=== PATIENT | male | born 1970 | race Hispanic/Latino ===

== ENCOUNTER 2022-07-28 15:23 | Emergency (ER) | payer SELFPAY ==
--- OUTSIDE RECORDS SUMMARY | 2022-07-28 15:35 | XMS REPORT | Continuity of Care Document ---
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 mouth 2 times a day. acetaminoph 2021- No 1{tbl} Q6H Take 1 Methodi en-codeine 4-19 04-[address] (TYLENOL 00:00: 04:59 mouth [facility] WITH 00 :00 every 6 l CODEINE #3) (six) 300-30 mg hours as per tablet needed for moderate pain for up to 5 days .acute pain. acetaminoph 2021- No 1{tbl} Q6H Take 1 Methodi en-codeine 4-19 04-[address] (TYLENOL 00:00: 04:59 mouth [facility]ospita WITH 00 :00 every 6 l CODEINE #3) (six) 300-30 mg hours as per tablet needed for moderate pain for up to 5 days .acute pain. pantoprazol 2021- No 40mg QD Take 1 Met hodi e 3-14 04-14 tablet (40 st (PROTONIX) 00:00: 04:59 mg total) H ospita 40 MG EC 00 :00 by mouth l tablet daily for 30 days. pantoprazol 2021- No 40mg QD Take 1 Met hodi e 08-25- tablet (40 st (PROTONIX) 00:00: 04:59 mg total) H ospita 40 MG EC 00 :00 by mouth l tablet daily for 30 days. tacrolimus 2021- No 1mg Q.5D Take 1 mg M ethodi (PROGRAF) 1 08-24 by mouth 2 s t MG capsule 13:44: 00:00 (two) Hospi ta 50 :00 times a l day. mycophenola 2021- No 1000mg Q.5D Take 1,000 Methodi te 3-13 03-[address] (CELLCEPT) 13:44: 00:00 mouth 2 Hos kar 500 mg 50 :00 (two) l tablet times a day. tacrolimus 2021- No 1mg Q.5D Take 1 mg M ethodi (PROGRAF) 1 08-24 by mouth 2 s t MG capsule 13:44: 00:00 (two) Hospi ta 50 :00 times a l day. mycophenola 2021- No 1000mg Q.5D Take 1,000 Methodi te 3-13 03-[address] (CELLCEPT) 13:44: 00:00 mouth 2 Hos kar 500 mg 50 :00 (two) l tablet times a day. mycophenola 2021- No [id number] 1000mg Q.5D Take 2 Methodi te 3-13 04-[address] (CELLCEPT) 00:00: 04:59 (1,000 mg H ospita 500 mg 00 :00 total) by l tablet mouth 2 (two) times a day for 30 days. tacrolimus 2021- No [id number] 1mg Q.5D Take 1 Methodi (PROGRAF) 1 08-24- capsule (1 s t MG capsule 00:00: 04:59 mg total) H ospita 00 :00 by mouth 2 l (two) times a day for 30 days. mycophenola 2021-2021- No [id number] 1000mg Q.5D Take 2 Methodi te 3-13 04-[address] (CELLCEPT) 00:00: 04:59 (1,000 mg H ospita 500 mg 00 :00 total) by l tablet mouth 2 (two) times a day for 30 days. tacrolimus No [id number] 1mg Q.5D Take 1 Methodi (PROGRAF) 1 08-24 capsule (1 s t MG capsule 00:00: 04:59 mg total) H ospita 00 :00 by mouth 2 l (two) times a day for 30 [place] [id number] 5mg Q6H Take 1 Meth shalom (ROXICODONE 08-24 tablet (5 st ) 5 MG 00:00: 04:59 mg total) Hospi ta immediate 00 :00 by mouth l release every 6 tablet (six) hours as needed for severe pain for up to 7 days .acute pain. Max Daily Amount: 20 [place] [id number] 5mg Q6H Take 1 Meth shalom (ROXICODONE 08-24 tablet (5 st ) 5 MG 00:00: 04:59 mg total) Hospi ta immediate 00 :00 by mouth l release every 6 tablet (six) hours as needed for severe pain for up to 7 days .acute pain. Max Daily Amount: 20 mg Vital Signs Vital Name Observation Time Observation Value Comments Source Systolic blood 2022-05-01 17:52:00 138 mm[Hg] [facility] Diastolic blood 2022-05-01 17:52:00 94 mm[facility]Hg[facility] 2022-05-01 17:52:00 68 /min [facility] Body temperature 2022-05-01 17:52:00 36.67 Susan [facility] Respiratory rate 2022-05-01 17:52:00 18 /min [facility] Oxygen saturation in 2022-05-01 17:52:00 97 /min [facility] Arterial blood by [facility] Pulse oximetry Branch Body height 2022-04-30 13:40:00 160 cm [facility] Body weight 2022-04-30 13:40:00 96.752 kg [facility] BMI 2022-04-30 13:40:00 37.78 kg/m2 [facility] HEIGHT 2021-08-09 17:31:00 162.6 cm WEIGHT 2021-08-09 17:31:00 104.327 kg HEIGHT 2021-08-09 17:31:00 162.6 cm WEIGHT 2021-08-09 17:31:00 104.327 kg HEIGHT 2021-08-09 17:31:00 162.6 cm WEIGHT 2021-08-09 17:31:00 104.327 kg Systolic blood 2022-07-28 11:52:52 148 mm[Hg] [facility] pressure Diastolic blood 2022-07-28 11:52:52 93 mm[Hg] [facility] pressure Heart rate 2022-07-28 11:52:52 59 /min [facility] Body temperature 2022-07-28 11:52:52 35.94 Susan [facility] Oxygen saturation in 2022-07-28 11:52:52 100 /[facility] Arterial blood by Pulse oximetry Respiratory rate 2022-07-27 21:07:19 15 /min [facility] Body weight 2022-07-27 11:07:24 85.078 kg [facility] BMI 2022-07-27 11:07:24 33.23 kg/m2 [facility] Body height 2022-07-05 15:26:00 160 cm [facility] Systolic blood 2022-04-28 11:00:00 131 mm[Hg] [facility] pressure Diastolic blood 2022-04-28 11:00:00 80 mm[Hg] [facility] pressure Heart rate 2022-04-28 11:00:00 80 /min [facility] Body temperature 2022-04-28 11:00:00 36.67 [facility] Respiratory rate 2022-04-28 11:00:00 18 /min [facility] Oxygen saturation in 2022-04-28 11:00:00 98 /min [facility] Arterial blood by Pulse oximetry Body height 2022-04-27 17:29:00 160 cm [facility] Body weight 2022-04-27 17:29:00 96.208 kg [facility] BMI 2022-04-27 17:29:00 37.57 kg/m2 [facility] Systolic blood 2021-08-10 03:41:00 108 mm[Hg] [facility] Diastolic blood 2021-08-10 03:41:00 67 mm[Hg] [facility] Heart rate 2021-08-10 03:41:00 58 /min [facility] Respiratory rate 2021-08-10 03:41:00 20 /min [facility] Oxygen saturation in 2021-08-10 03:41:00 100 /min [facility] Arterial blood by [facility] Pulse oximetry Body height 2021-08-09 17:31:00 162.6 cm [facility] Body weight 2021-08-09 17:31:00 104.327 kg [facility] BMI 2021-08-09 17:31:00 39.48 kg/m2 [facility] Procedures Procedure Date / Time Performing Source Performed Clinician BASIC METABOLIC PANEL 2022-07-27 Ailyn Anne 10:19:00 [facility] ESTIMATED GFR 2022-07-27 Ailyn Anne 10:19:00 [facility] [id number] TACROLIMUS LEVEL, TROUGH 2022-07-27 Bo Gannon ethodi 10:16:00 [facility] [place] [address] TACROLIMUS LEVEL, TROUGH 2022-07-26 Bo Gannonodi 11:12:00 [facility] COMPREHENSIVE METABOLIC PANEL 2022-07-26 Ailyn Anneodist 11:05:00 Hospital CBC HEMOGRAM 2022-07-26 Ailyn Anne 11:05:00 Hospital ESTIMATED GFR 2022-07-26 Ailyn Anne 11:05:00 [facility] FK506 TACROLIMUS LEVEL, TROUGH 2022-07-25 Bo Gannonodi 11:19:00 [facility] COMPREHENSIVE METABOLIC PANEL 2022-07-25 Ailyn Anne thodist 11:02:00 [facility] CBC HEMOGRAM 2022-07-25 Ailyn Anne Jain 11:02:00 Hospital ESTIMATED GFR 2022-07-25 Ailyn Anne 11:02:00 [facility] COMPREHENSIVE METABOLIC PANEL 2022-07-24 Paulina Mendez 16:21:00 [facility] ESTIMATED GFR 2022-07-24 Paulina Mendez 16:21:00 [facility] VENOUS BLOOD GAS 2022-07-24 Ministerio Mehta Jain 16:20:[address] [facility] ESTIMATED GFR 2022-07-24 Eris avendanolakshmi Bartholomew 14:08:00 [facility] CBC HEMOGRAM 2022-07-24 Bo Gannon 11:11:00 [facility] [place] FK[address] TACROLIMUS LEVEL, TROUGH 2022-07-24 Bo Gannon 11:10:00 [facility] COMPREHENSIVE METABOLIC PANEL 2022-07-24 Bo Gannonst 11:10:00 [facility] ESTIMATED GFR 2022-07-24 Bo Gannon 11:10:00 [facility] URINE CULTURE 2022-07-23 Paulina Mendez 22:04:00 [facility] URINALYSIS SCREEN AND MICROSCOPY, 2022-07-23 Maria Eugenia Mendez WITH REFLEX TO CULTURE 21:56:00 [facility] ESTIMATED GFR 2022-07-23 Paulina Mendez 15:23:00 [facility] HEPATIC FUNCTION PANEL 2022-07-23 Paulina Mendez 10:58:00 [facility] [id number] TACROLIMUS LEVEL, TROUGH 2022-07-23 Bo Gannon 10:58:00 [facility] [place] CBC WITH PLATELET AND DIFFERENTIAL 2022-07-23 Nemesio Anne Jain 10:58:00 [facility] BASIC METABOLIC PANEL 2022-07-23 Bo Gannon 10:58:00 [facility] ESTIMATED GFR 2022-07-23 Bo Gannon 10:58:00 [facility] HEPATIC FUNCTION PANEL 2022-07-22 Paulina Mendez 11:06:00 [facility] FK506 TACROLIMUS LEVEL, TROUGH 2022-07-22 Bo Gannon ethodist 11:06:00 [facility] CBC WITH PLATELET AND DIFFERENTIAL 2022-07-22 Jorge Aleman Jain 11:06:00 [facility] BASIC METABOLIC PANEL 2022-07-22 Sari Aleman Jain 11:06:00 Hospital ESTIMATED GFR 2022-07-22 Sari Aleman Jain 11:06:00 Hospital LACTIC ACID LEVEL 2022-07-21 Paulina Mendez 17:08:00 [facility] HEPATIC FUNCTION PANEL 2022-07-21 Paulina Mendez 11:02:00 [facility] [id number] TACROLIMUS LEVEL, TROUGH 2022-07-21 Bo Gannon ethodist 11:02:00 [facility] CBC WITH PLATELET AND DIFFERENTIAL 2022-07-21 Jorge Aleman Jain 11:02:00 Hospital BASIC METABOLIC PANEL 2022-07-21 Sari Aleman Jain 11:02:00 Hospital ESTIMATED GFR 2022-07-21 Sari Aleman Jain 11:02:00 Hospital XR ABDOMEN 1 VW PORTABLE 2022-07-[address] 02:07:32 [facility] LACTIC ACID LEVEL 2022-07-20 Ministerio Mehta Jain 19:19:00 [facility] ARTERIAL BLOOD GAS 2022-07-20 TysonMinisterio Jain 18:43:00 C [facility] FK506 TACROLIMUS LEVEL, TROUGH 2022-07-20 Milagros Harringtonodist 10:53:00 Hospital VENOUS BLOOD GAS 2022-07-20 Rogelio Jain 10:53:00 [facility] BASIC METABOLIC PANEL 2022-07-20 Sari Aleman Jain 10:50:00 Hospital MAGNESIUM LEVEL 2022-07-20 Sari Aleman Jain 10:50:00 Hospital PHOSPHORUS LEVEL 2022-07-20 Sari Aleman Jain 10:50:00 Hospital CBC WITH PLATELET AND DIFFERENTIAL 2022-07-20 Jorge Aleman Jain 10:50:00 Hospital ESTIMATED GFR 2022-07-20 Sari Aleman Jain 10:50:00 Hospital HEPATIC FUNCTION PANEL 2022-07-20 Sari Aleman Jain 10:50:00 Hospital SODIUM LEVEL, URINE, RANDOM 2022-07-20 Eva Mercado odlevar 01:14:00 [facility] OSMOLALITY, URINE 2022-07-20 Rogelio Jain 01:14:00 [facility] FK506 TACROLIMUS LEVEL, TROUGH 2022-07-19 Milagros Harrington ethodist 11:08:00 Hospital CBC WITH PLATELET AND DIFFERENTIAL 2022-07-19 Jorge Aleman 11:08:00 Hospital MAGNESIUM LEVEL 2022-07-19 Sari Aleman 11:08:00 Hospital PHOSPHORUS LEVEL 2022-07-19 Sari Aleman Jain 11:08:00 Hospital COMPREHENSIVE METABOLIC PANEL 2022-07-19 Sari Aleman Me thodist 11:08:00 Hospital ESTIMATED GFR 2022-07-19 Sari Aleman Jain 11:08:00 Hospital FK506 TACROLIMUS LEVEL, TROUGH 2022-07-18 Milagros Harrington ethodist 10:49:00 Hospital CBC WITH PLATELET AND DIFFERENTIAL 2022-07-18 Jorge Alemanist 10:49:00 Hospital COMPREHENSIVE METABOLIC PANEL 2022-07-18 Sari Aleman thodist 10:49:00 Hospital ESTIMATED GFR 2022-07-18 Sari Aleman Jain 10:49:00 Hospital HEPATIC FUNCTION PANEL 2022-07-17 Sari Aleman Jain 10:57:00 Hospital FK506 TACROLIMUS LEVEL, TROUGH 2022-07-17 Milagros Harrington ethodist 10:57:00 Hospital CBC WITH PLATELET AND DIFFERENTIAL 2022-07-17 Jorge Aleman Jain 10:57:00 Hospital BASIC METABOLIC PANEL 2022-07-17 Sari Aleman Jain 10:57:00 Hospital ESTIMATED GFR 2022-07-17 Sari Aleman Jain 10:57:00 Hospital HEPATIC FUNCTION PANEL 2022-07-16 Sari Aleman Jain 10:53:00 Hospital CBC WITH PLATELET AND DIFFERENTIAL 2022-07-16 Jorge Aleman Jain 10:53:00 Hospital FK506 TACROLIMUS LEVEL, TROUGH 2022-07-16 Milagros Harrington ethodist 10:53:00 Hospital XR CHEST 1 VW PORTABLE 2022-07-15 Paulina Mendez 21:51:13 [facility] HEPATIC FUNCTION PANEL 2022-07-15 Sari Aleman Jain 12:21:00 Hospital CBC WITH PLATELET AND DIFFERENTIAL 2022-07-15 Jorge Aleman Jain 12:21:00 Hospital FK506 TACROLIMUS LEVEL, TROUGH 2022-07-15 Milagros Harrington ethodist 12:21:00 Hospital BASIC METABOLIC PANEL 2022-07-15 IgnaciagayathriMilagrosist 12:21:00 Hospital ESTIMATED GFR 2022-07-15 IgnaciagayathriMilagros 12:21:00 Hospital HEPATIC FUNCTION PANEL 2022-07-14 Sari Aleman 11:22:00 Hospital CBC WITH PLATELET AND DIFFERENTIAL 2022-07-14 Jorge Aleman 11:22:00 Hospital BASIC METABOLIC PANEL 2022-07-14 Sari Aleman 11:22:00 Hospital FK506 TACROLIMUS LEVEL, TROUGH 2022-07-14 Milagros Harrington ethodist 11:22:00 Hospital ESTIMATED GFR 2022-07-14 Sari Aleman 11:22:00 Hospital URINALYSIS SCREEN AND MICROSCOPY, 2022-07-13 Maria Eugenia Mendez WITH REFLEX TO CULTURE 22:03:00 [facility] URINE CULTURE 2022-07-13 Paulina Mendez 22:03:00 [facility] BLOOD CULTURE, AEROBIC & ANAEROBIC 2022-07-13 Adama Mendez 20:50:00 [facility] FK506 TACROLIMUS LEVEL, TROUGH 2022-07-13 Ailyn Anne ethodist 11:24:00 Hospital FK506 TACROLIMUS LEVEL, TROUGH 2022-07-12 Ailyn Anne ethodist 11:43:00 [facility] COMPREHENSIVE METABOLIC PANEL 2022-07-12 Ailyn Anne thodist 11:43:00 Hospital CBC WITH PLATELET AND DIFFERENTIAL 2022-07-12 Nemesio Anne Jain 11:43:00 Hospital ESTIMATED GFR 2022-07-12 Ailyn Anne Jain 11:43:00 Hospital FK506 TACROLIMUS LEVEL, TROUGH 2022-07-11 Ailyn Anne ethodist 11:16:00 Hospital COMPREHENSIVE METABOLIC PANEL 2022-07-11 Ailyn Anne thodist 11:16:00 Hospital CBC WITH PLATELET AND DIFFERENTIAL 2022-07-11 Nemesio Anne ti Jain 11:16:00 Hospital ESTIMATED GFR 2022-07-11 Ailyn Anne Jain 11:16:00 Hospital FK506 TACROLIMUS LEVEL, TROUGH 2022-07-10 Ailyn Anne ethodist 10:57:00 Hospital CBC WITH PLATELET AND DIFFERENTIAL 2022-07-10, Adama Crespoist 10:57:00 [facility] COMPREHENSIVE METABOLIC PANEL 2022-07-10, Paulina Cervantes thodist 10:57:00 [facility] ESTIMATED GFR 2022-07-10, Paulina Crespoist 10:57:00 [facility] FK506 TACROLIMUS LEVEL, TROUGH 2022-07-09 Ailyn Anne ethodist 11:36:00 Hospital CBC WITH PLATELET AND DIFFERENTIAL 2022-07-09, Adama abad Jain 11:36:00 [facility] COMPREHENSIVE METABOLIC PANEL 2022-07-09, Paulina eCrvantes thodist 11:36:00 [facility] ESTIMATED GFR 2022-07-09, Paulina Crespoist 11:36:00 [facility] FK506 TACROLIMUS LEVEL, TROUGH 2022-07-08 Ailyn Anne ethodist 11:32:00 Hospital CBC WITH PLATELET AND DIFFERENTIAL 2022-07-08, Adama Crespoist 11:32:00 [facility] COMPREHENSIVE METABOLIC PANEL 2022-07-08, Paulina Cervantes thodist 11:32:00 [facility] PROTHROMBIN TIME WITH INR 2022-07-08, Paulina Crespo ist 11:32:00 [facility] ESTIMATED GFR 2022-07-08, Paulina Crespoist 11:32:00 [facility] AMMONIA LEVEL 2022-07-07 Linsey Gomezist 11:19:00 [facility] FK506 TACROLIMUS LEVEL, TROUGH 2022-07-07 Ailyn Anne ethodist 11:19:00 Hospital AMMONIA LEVEL 2022-07-06 Ailyn Anne Jain 17:45:00 Hospital AMMONIA LEVEL 2022-07-06 Ailyn Anne 15:44:00 Hospital MAGNESIUM LEVEL 2022-07-06 Linsey Gomez Jain 11:51:00 [facility] CBC WITH PLATELET AND DIFFERENTIAL 2022-07-06 JasonLinsey Jain 11:51:00 [facility] COMPREHENSIVE METABOLIC PANEL 2022-07-06 Jason, Aishar Me thodist 11:51:00 [facility] BILIRUBIN DIRECT 2022-07-06 Linsey Gomez Jain 11:51:00 [facility] FK506 TACROLIMUS LEVEL, RANDOM 2022-07-06 Linsey Gomez ethodist 11:51:00 [facility] ESTIMATED GFR 2022-07-06 Linsey Gomez 11:51:00 [facility] ALCOHOL LEVEL, BLOOD 2022-07-06 Linsey Gomez 05:30:00 [facility] POTASSIUM LEVEL 2022-07-06 Linsey Gomez Jain 05:30:00 [facility] MAGNESIUM LEVEL 2022-07-06 JasonLinsey Jain 05:30:00 [facility] LACTIC ACID LEVEL 2022-07-06 JasonLinsey Jain 05:30:00 [facility] BILIRUBIN DIRECT 2022-07-06 JasonLinsey ocok Jain 05:30:00 [facility] BASIC METABOLIC PANEL 2022-07-06 Linsey Gomez 05:30:00 [facility] ESTIMATED GFR 2022-07-06 Linsey Gomez 05:30:[address] [facility] CT ABDOMEN PELVIS W CONTRAST 2022-07-05 Sybil Rivera Met hodist 19:07:45 [facility] XR CHEST 1 VW PORTABLE 2022-07-05 Sybil Rivera Jain 16:34:20 [facility] URINALYSIS SCREEN AND MICROSCOPY, 2022-07-05 Sybil Rivera Jain WITH REFLEX TO CULTURE 16:22:00 [facility] URINE CULTURE 2022-07-05 Sybil Rivera Jain 16:21:00 [facility] ECG ED PRELIMINARY INTERPRETATION 2022-07-05 Sybil Rivera Jain 16:10:14 [facility] MA CRITICAL CARE ILL/INJURED 2022-07-05 Sybil Rivera Met hodist PATIENT INIT 30-74 MIN 16:10:14 [facility] CBC WITH PLATELET AND DIFFERENTIAL 2022-07-05 Sybil Rivera Jain 16:03:00 [facility] COMPREHENSIVE METABOLIC PANEL 2022-07-05 Sybil Rivera Me thodist 16:03:00 [facility] LIPASE LEVEL 2022-07-05 Sybil Rivera Jain 16:03:00 [facility] TYPE AND SCREEN 2022-07-05 Sybil Rivera Jain 16:03:00 [facility] PROTHROMBIN TIME WITH INR 2022-07-05 Sybil Rivera Method ist 16:03:00 [facility] PARTIAL THROMBOPLASTIN TIME (PTT) 2022-07-05 Sybil Rivera Jain 16:03:00 [facility] ESTIMATED GFR 2022-07-05 Sybil Riveraist 16:03:00 [facility] TROPONIN T 2022-07-05 Sybil Riveraist 16:03:00 [facility] RESPIRATORY PATHOGEN PANEL WITH 2022-07-05 Sybil Rivera COVID-19 RT-PCR 16:03:00 [facility] ECG 12-LEAD 2022-07-05 Sybil Riveraist 15:31:00 [facility] [id number] TACROLIMUS LEVEL, RANDOM 2022-06-26 Jaime Marsodist 11:00:00 [facility] BASIC METABOLIC PANEL 2022-06-26 Jaime Mars 11:00:00 [facility] CBC WITH PLATELET AND DIFFERENTIAL 2022-06-26 Chetan Marsist 11:00:00 [facility] HEPATIC FUNCTION PANEL 2022-06-26 Jaime Mars 11:00:00 [facility] PROTHROMBIN TIME WITH INR 2022-06-26 Pedro Spears 11:00:00 Hospital ESTIMATED GFR 2022-06-26 Jaime Mars 11:00:00 [facility] FK506 TACROLIMUS LEVEL, RANDOM 2022-06-25 Jaime Mars ethodist 10:30:00 [facility] BASIC METABOLIC PANEL 2022-06-25 Jaime Mrasist 10:30:00 [facility] CBC WITH PLATELET AND DIFFERENTIAL 2022-06-25 Chetan Marsist 10:30:00 [facility] HEPATIC FUNCTION PANEL 2022-06-25 Jaime Mars 10:30:00 [facility] PROTHROMBIN TIME WITH INR 2022-06-25 Pedro Spears 10:30:00 Hospital ESTIMATED GFR 2022-06-25 Jaime Mars Jain 10:30:00 [facility] CBC WITH PLATELET AND DIFFERENTIAL 2022-06-24 Chetan Mars Jain 10:51:00 [facility] FK506 TACROLIMUS LEVEL, RANDOM 2022-06-24 Jaime Mars ethodist 10:51:00 [facility] COMPREHENSIVE METABOLIC PANEL 2022-06-24 Jaime Mars Ny thodist 10:51:00 [facility] MAGNESIUM LEVEL 2022-06-24 Jaime Mars Jain 10:51:00 [facility] PHOSPHORUS LEVEL 2022-06-24 Jaime Mars Jain 10:51:00 [facility] PROTHROMBIN TIME WITH INR 2022-06-24 Jaime Mars Method ist 10:51:00 [facility] ESTIMATED GFR 2022-06-24 Jaime Mars Jain 10:51:00 [facility] ESTIMATED GFR 2022-06-24 Jaime Mars Jain 10:45:00 [facility] CBC WITH PLATELET AND DIFFERENTIAL 2022-06-23 Chetan Mars Jain 10:29:00 [facility] FK506 TACROLIMUS LEVEL, RANDOM 2022-06-23 Esthela Terry ethodist 10:29:00 [facility] COMPREHENSIVE METABOLIC PANEL 2022-06-23 Jaime Mars Ny thodist 10:29:00 [facility] MAGNESIUM LEVEL 2022-06-23 Jaime Mars Jain 10:29:00 [facility] PHOSPHORUS LEVEL 2022-06-23 Jaime Mars Jain 10:29:00 [facility] PROTHROMBIN TIME WITH INR 2022-06-23 Jaime Mars Method ist 10:29:00 [facility] ESTIMATED GFR 2022-06-23 Jaime Mars Jain 10:29:00 [facility] ESTIMATED GFR 2022-06-23 Jaime Mars Jain 10:22:00 [facility] BASIC METABOLIC PANEL 2022-06-22 Jaime Mars Jain 12:49:00 [facility] CBC WITH PLATELET AND DIFFERENTIAL 2022-06-22 Chetan Mars Jain 12:49:00 [facility] FK506 TACROLIMUS LEVEL, RANDOM 2022-06-22 Esthela Terry 12:49:00 [facility] ESTIMATED GFR 2022-06-22 Jaime Mars Jain 12:49:00 [facility] BASIC METABOLIC PANEL 2022-06-21 Jaime Mars Jain 11:07:00 [facility] CBC WITH PLATELET AND DIFFERENTIAL 2022-06-21 Chetan Mars Jain 11:07:00 [facility] FK506 TACROLIMUS LEVEL, RANDOM 2022-06-21 Esthela Terry 11:07:00 [facility] ESTIMATED GFR 2022-06-21 Jaime Mars Jain 11:07:00 [facility] HEPATIC FUNCTION PANEL 2022-06-21 Jaime Mars Jain 11:07:00 [facility] CBC WITH PLATELET AND DIFFERENTIAL 2022-06-20 Chetan Mars Jain 12:06:00 [facility] FK506 TACROLIMUS LEVEL, RANDOM 2022-06-20 Esthela Terry 12:06:00 [facility] COMPREHENSIVE METABOLIC PANEL 2022-06-20 Jaime Mars 12:06:00 [facility] PROTHROMBIN TIME WITH INR 2022-06-20 Jaime Mars Method ist 12:06:00 [facility] ESTIMATED GFR 2022-06-20 Jaime Mars Jain 12:06:00 [facility] ESTIMATED GFR 2022-06-20 Jaime Mars Jain 09:45:00 [facility] HEPATIC FUNCTION PANEL 2022-06-19 Daniela Tobaris t 09:31:00 Hospital BASIC METABOLIC PANEL 2022-06-19 Jaime Mars Jain 09:31:00 [facility] CBC WITH PLATELET AND DIFFERENTIAL 2022-06-19 Chetan Mars Jain 09:31:00 [facility] FK506 TACROLIMUS LEVEL, RANDOM 2022-06-19 Esthela Terry 09:31:00 [facility] PROTHROMBIN TIME WITH INR 2022-06-19 [facility] dist 09:31:00 Hospital ESTIMATED GFR 2022-06-19 Jaime Mars Jain 09:31:00 [facility] XR CHEST 1 VW PORTABLE 2022-06-18 Justine Charles Methodis t 17:07:00 Hospital HEPATIC FUNCTION PANEL 2022-06-18 Daniela Tobar Methodis t 11:32:00 Hospital BASIC METABOLIC PANEL 2022-06-18 Jaime Mars Jain 11:32:00 [facility] CBC WITH PLATELET AND DIFFERENTIAL 2022-06-18 Chetan Mars Jain 11:32:00 [facility] FK506 TACROLIMUS LEVEL, RANDOM 2022-06-18 Esthela Terryodist 11:32:00 [facility] PROTHROMBIN TIME WITH INR 2022-06-18 Jaime Mars ist 11:32:00 [facility] ESTIMATED GFR 2022-06-18 Jaime Mars Jain 11:32:00 [facility] MAGNESIUM LEVEL 2022-06-18 Jaime Mars Jain 11:32:00 [facility] PHOSPHORUS LEVEL 2022-06-18 Jaime Mars Jain 11:32:00 [facility] MANUAL DIFFERENTIAL 2022-06-18 Jaime Mars Jain 11:32:00 [facility] URINE CULTURE 2022-06-18 Nova Villasenor Jain 04:38:00 Hospital URINALYSIS SCREEN AND MICROSCOPY, 2022-06-18 Teofilo Dee WITH REFLEX TO CULTURE 02:41:00 [facility] SODIUM LEVEL, URINE, RANDOM 2022-06-18 Lizandro Dee ethodist 02:41:00 [facility] POTASSIUM, URINE, RANDOM 2022-06-18 Lizandro Dee odist 02:41:00 [facility] CHLORIDE LEVEL, URINE, RANDOM 2022-06-18 Lizandro Dee Jain 02:41:00 [facility] CREATININE LEVEL, URINE, RANDOM 2022-06-18 Zulema Dee Jain 02:41:00 [facility] CBC WITH PLATELET AND DIFFERENTIAL 2022-06-17 Luca Gonzalez Jain 11:18:00 [facility] BASIC METABOLIC PANEL 2022-06-17 Luca Gonzalez Jain 11:18:00 [facility] HEPATIC FUNCTION PANEL 2022-06-17 Daniela Tobar t 11:18:00 Hospital FK506 TACROLIMUS LEVEL, RANDOM 2022-06-17 Daniela Tobarist 11:18:00 Hospital PROTHROMBIN TIME WITH INR 2022-06-17 Pedro Spears Met hodist 11:18:00 [facility] ESTIMATED GFR 2022-06-17 Luca Gonzalez Jain 11:18:00 [facility] MANUAL DIFFERENTIAL 2022-06-17 Luca Gonzalez Jain 11:18:00 [facility] PHOSPHATIDYLETHANOL, BLOOD 2022-06-17 HatDaniela gutierrez odist 11:18:00 [facility] [id number] TACROLIMUS LEVEL, TROUGH 2022-06-16 Radha Kumarodist 11:12:00 [facility] HEPATIC FUNCTION PANEL 2022-06-16 Radha Kumar Jain 11:12:00 [facility] CBC WITH PLATELET AND DIFFERENTIAL 2022-06-16 Luca Gonzalez Jain 11:12:00 [facility] BASIC METABOLIC PANEL 2022-06-16 Luca Gonzalez Jain 11:12:00 [facility] PROTHROMBIN TIME WITH INR 2022-06-16 Pedro Spears Met hodist 11:12:00 [facility] ESTIMATED GFR 2022-06-16 Luca Gonzalez Jain 11:12:00 [facility] [id number] TACROLIMUS LEVEL, TROUGH 2022-06-15 Radha Kumar ethodist 12:07:00 [facility] HEPATIC FUNCTION PANEL 2022-06-15 José Radha Jain 12:07:00 [facility] CBC WITH PLATELET AND DIFFERENTIAL 2022-06-15 Luca Gonzalez Jain 12:07:00 [facility] BASIC METABOLIC PANEL 2022-06-15 Luca Gonzalez Jain 12:07:00 [facility] ESTIMATED GFR 2022-06-15 Luca Gonzalez Jain 12:07:00 [facility] [id number] TACROLIMUS LEVEL, TROUGH 2022-06-14 Radha Kumar ethodist 12:01:00 [facility] HEPATIC FUNCTION PANEL 2022-06-14 Radha Kumar 12:01:00 [facility] CBC WITH PLATELET AND DIFFERENTIAL 2022-06-14 Luca Gonzalez 12:01:00 [facility] BASIC METABOLIC PANEL 2022-06-14 Luca Gonzalez 12:01:00 [facility] ESTIMATED GFR 2022-06-14 Luca Gonzalez 12:01:00 [facility] CBC WITH PLATELET AND DIFFERENTIAL 2022-06-13 Chetan Mars Jain 11:22:00 [facility] BASIC METABOLIC PANEL 2022-06-13 Jaime Mars 11:22:00 [facility] MAGNESIUM LEVEL 2022-06-13 Jaime Mars 11:22:00 [facility] PHOSPHORUS LEVEL 2022-06-13 Jaime Mars 11:22:00 [facility] [id number] TACROLIMUS LEVEL, TROUGH 2022-06-13 Radha Kumar 11:22:00 [facility] HEPATIC FUNCTION PANEL 2022-06-13 Radha Kumar 11:22:00 [facility] ESTIMATED GFR 2022-06-13 Jaime Mars 11:22:00 [facility] BILE ACIDS, TOTAL 2022-06-12 Melissa Dockery 22:04:00 [facility] CBC WITH PLATELET AND DIFFERENTIAL 2022-06-12 Chetan Mars Jain 10:54:00 [facility] BASIC METABOLIC PANEL 2022-06-12 Jaime Mars 10:54:00 [facility] MAGNESIUM LEVEL 2022-06-12 Jaime Mars Jain 10:54:00 [facility] PHOSPHORUS LEVEL 2022-06-12 Jaime Mars Jain 10:54:00 [facility] [id number] TACROLIMUS LEVEL, TROUGH 2022-06-12 Radha Kumar 10:54:00 [facility] HEPATIC FUNCTION PANEL 2022-06-12 Radha Kumar 10:54:00 [facility] ESTIMATED GFR 2022-06-12 Jaime Mars 10:54:00 [facility] SMEAR REVIEW 2022-06-12 Jaime Mars Jain 10:54:00 [facility] URINALYSIS, AUTOMATED WITH 2022-06-11 Tracey Mendez, Metho dist MICROSCOPY 19:34:00 [facility] SODIUM LEVEL, URINE, RANDOM 2022-06-11 Tracey Andrea, Meth odist 19:34:00 [facility] CREATININE LEVEL, URINE, RANDOM 2022-06-11 Tracey Andrea, Jain 19:34:00 [facility] POTASSIUM, URINE, RANDOM 2022-06-11 Tracey Andrea, Methodi st 19:34:00 [facility] CHLORIDE LEVEL, URINE, RANDOM 2022-06-11 Tracey Andrea, Me thodist 19:34:00 [facility] PROTEIN, URINE, RANDOM 2022-06-11 Tracey Andrea, Jain 19:34:00 [facility] CBC WITH PLATELET AND DIFFERENTIAL 2022-06-11 Chetan Marsist 11:36:00 [facility] BASIC METABOLIC PANEL 2022-06-11 Jaime Marsist 11:36:00 [facility] MAGNESIUM LEVEL 2022-06-11 Jaime Marsist 11:36:00 [facility] PHOSPHORUS LEVEL 2022-06-11 Jaime Mars 11:36:00 [facility] [id number] TACROLIMUS LEVEL, TROUGH 2022-06-11 Radha Kumar ethodist 11:36:00 [facility] HEPATIC FUNCTION PANEL 2022-06-11 Radha Kumar 11:36:00 [facility] ESTIMATED GFR 2022-06-11 Jaime Marsist 11:36:00 [facility] SURGICAL PATHOLOGY REQUEST 2022-06-10 Luca Gonzalez Metho dist 20:47:00 [facility] ESOPHAGOGASTRODUODENOSCOPY (EGD) 2022-06-10 Grupo Vasquez Jain 18:49:00 Hospital PROTHROMBIN TIME WITH INR 2022-06-10 Luca Gonzalez Method ist 15:01:00 [facility] COVID-19 QUALITATIVE RT-PCR 2022-06-10 Grupo Vasquez hodist 12:23:00 Hospital CBC WITH PLATELET AND DIFFERENTIAL 2022-06-10 Chetan Mars Jain 10:30:00 [facility] BASIC METABOLIC PANEL 2022-06-10 Jaime Mars Jain 10:30:00 [facility] MAGNESIUM LEVEL 2022-06-10 Jaime Mars Jain 10:30:00 [facility] PHOSPHORUS LEVEL 2022-06-10 Jaime Mars Jain 10:30:00 [facility] [id number] TACROLIMUS LEVEL, TROUGH 2022-06-10 Radha Kumar ethodist 10:30:00 [facility] HEPATIC FUNCTION PANEL 2022-06-10 Radha Kumar Jain 10:30:00 [facility] PROTHROMBIN TIME WITH INR 2022-06-10 Luca Gonzalez Method ist 10:30:00 [facility] ESTIMATED GFR 2022-06-10 Jaime Mars Jain 10:30:00 [facility] SURGICAL PATHOLOGY REQUEST 2022-06-09 Luca Gonzalez Metho dist 23:12:00 [facility] IR TRANSJUGULAR LIVER BIOPSY 2022-06-09 Jaime Mars hodist 22:15:00 [facility] DONOR SPECIFIC ANTIBODY 2022-06-09 Shasta Orourke Method ist 18:06:00 [facility] SERUM ELECTROPHORESIS 2022-06-09 Puma Molina 14:31:00 [facility] URINE PROTEIN ELECTROPHORESIS, 2022-06-09 Vinh Molinaodi RANDOM 14:15:00 [facility] IMMUNOFIXATION, URINE 2022-06-09 Joann Gudino t 14:15:00 [facility] [id number] TACROLIMUS LEVEL, TROUGH 2022-06-09 John Lazaro ethodist 11:50:00 [facility] CBC WITH PLATELET AND DIFFERENTIAL 2022-06-09 Chetan Mars Jain 11:50:00 [facility] BASIC METABOLIC PANEL 2022-06-09 Jaime Mars Jain 11:50:00 [facility] HEPATIC FUNCTION PANEL 2022-06-09 Jaime Mars Jain 11:50:00 [facility] MAGNESIUM LEVEL 2022-06-09 Jaime Mars Jain 11:50:00 [facility] PHOSPHORUS LEVEL 2022-06-09 Jaime Mars Jain 11:50:00 [facility] PROTHROMBIN TIME WITH INR 2022-06-09 Jaime Mars Method ist 11:50:00 [facility] ESTIMATED GFR 2022-06-09 Jaime Marsist 11:50:00 [facility] KAPPA LAMBDA FREE LIGHT CHAIN WITH 2022-06-09 Chetan Mars Jain RATIO 11:50:00 [facility] [id number] TACROLIMUS LEVEL, TROUGH 2022-06-08 John Lazaro ethodist 11:26:00 [facility] CBC WITH PLATELET AND DIFFERENTIAL 2022-06-08 Chetan Mars Jain 11:26:00 [facility] BASIC METABOLIC PANEL 2022-06-08 Jaime Marsist 11:26:00 [facility] HEPATIC FUNCTION PANEL 2022-06-08 Jaime Marsist 11:26:00 [facility] MAGNESIUM LEVEL 2022-06-08 Jaime Mars Jain 11:26:00 [facility] PHOSPHORUS LEVEL 2022-06-08 Jaime Mars Jain 11:26:00 [facility] VITAMIN D 25 HYDROXY LEVEL 2022-06-08 Tracey Mendez Metho dist 11:26:00 [facility] PTH-RELATED PEPTIDE 2022-06-08 Puma Molina 11:26:00 [facility] ESTIMATED GFR 2022-06-08 Jaime Marsist 11:26:00 [facility] PROTEIN, URINE, RANDOM 2022-06-08 Cherie Molinaist 01:31:00 [facility] CHLORIDE LEVEL, URINE, RANDOM 2022-06-08 Tracey Mendez Me thodist 01:31:00 [facility] CREATININE LEVEL, URINE, RANDOM 2022-06-08 Puma Molina 01:31:00 [facility] UREA NITROGEN, URINE, RANDOM 2022-06-08 Tracey Mendez Met hodist 01:31:00 [facility] POTASSIUM, URINE, RANDOM 2022-06-[address] 01:31:00 [facility] SODIUM LEVEL, URINE, RANDOM 2022-06-08 Eva Molina odist 01:31:00 [facility] OSMOLALITY, URINE 2022-06-08 Puma Molina 01:31:00 [facility] URINE CULTURE 2022-06-08 Lenard Llanes Jain 01:31:00 [facility] URINALYSIS SCREEN AND MICROSCOPY, 2022-06-08 Puma Molina WITH REFLEX TO CULTURE 01:29:00 [facility] BASIC METABOLIC PANEL 2022-06-07 Puma Molina 23:22:00 [facility] PARATHYROID HORMONE 2022-06-07 Puma Molina 23:22:00 [facility] VITAMIN D 1,25 DIHYDROXY LEVEL, 2022-06-07 Puma Molina SERUM 23:22:00 [facility] ALCOHOL LEVEL, BLOOD 2022-06-07 Puma Molina 23:22:00 [facility] ESTIMATED GFR 2022-06-07 Lenard Llanes Jain 23:22:00 [facility] VENOUS BLOOD GAS 2022-06-07 Puma Molina 23:21:00 [facility] OSMOLALITY, SERUM 2022-06-07 Puma Molina 23:21:00 [facility] SALICYLATE LEVEL 2022-06-07 Puma Molina 23:21:00 [facility] LACTIC ACID LEVEL 2022-06-07 Jaime Mars Jain 16:16:00 [facility] BETA HYDROXYBUTYRATE 2022-06-07 Jaime Mars Jain 16:16:00 [facility] VENOUS BLOOD GAS 2022-06-07 Jaime Mars 16:16:00 [facility] [id number] TACROLIMUS LEVEL, TROUGH 2022-06-07 John Lazaro ethodist 11:16:00 [facility] CBC WITH PLATELET AND DIFFERENTIAL 2022-06-07 Chetan Marsist 11:16:00 [facility] BASIC METABOLIC PANEL 2022-06-07 Jaime Marsist 11:16:00 [facility] HEPATIC FUNCTION PANEL 2022-06-07 Jaime Marsist 11:16:00 [facility] MAGNESIUM LEVEL 2022-06-07 Jaime Mars Jain 11:16:00 [facility] PHOSPHORUS LEVEL 2022-06-07 Jaime Mars Jain 11:16:00 [facility] FERRITIN LEVEL 2022-06-07 Jaime Mars Jain 11:16:00 [facility] FOLATE LEVEL 2022-06-07 Jaime Mars Jain 11:16:00 [facility] TOTAL IRON BINDING CAPACITY 2022-06-07 Jaime Mars odist 11:16:00 [facility] VITAMIN B12 LEVEL 2022-06-07 Jaime Mars Jain 11:16:00 [facility] CYTOMEGALOVIRUS BY PCR 2022-06-07 Emory Crespo ist 11:16:00 co, [facility] HERPES SIMPLEX VIRUS BY PCR 2022-06-07 [facility] hillodist 11:16:[facility] SH[facility]IN VIRUS (EBV) BY PCR 2022-06-07 Deepti guy Jain 11:16:00 co, [facility] HEPATITIS B CORE ANTIBODY IGM 2022-06-07 Emory Jain 11:16:00 co, [facility] HEPATITIS B SURFACE ANTIGEN 2022-06-07 Emory Justice ethodist 11:16:00 [facility] C VIRUS (HCV), 2022-06-07 Emory Velasquez odist QUANTITATIVE PCR 11:16:00 ky, [facility] ESTIMATED GFR 2022-06-07 Jaime Mars Jain 11:16:00 [facility] HEPATIC FUNCTION PANEL 2022-06-06 John Lazaro 20:43:00 [facility] [id number] TACROLIMUS LEVEL, TROUGH 2022-06-06 John Lazaro 12:06:00 [facility] PROTHROMBIN TIME WITH INR 2022-06-06 CasanovaJesus Alberto Shannanjorge Hon Velasquez odist 12:06:00 [facility] BASIC METABOLIC PANEL 2022-06-06 John Lazaro 12:06:00 [facility] ESTIMATED GFR 2022-06-06 John Lazaro 12:06:00 [facility] [id number] TACROLIMUS LEVEL, TROUGH 2022-06-05 John Lazaro ethodist 11:19:00 [facility] COMPREHENSIVE METABOLIC PANEL 2022-06-05 John Lazaro Ny thodist 11:19:00 [facility] PROTHROMBIN TIME WITH INR 2022-06-05 John Lazaro Method ist 11:19:00 [facility] ESTIMATED GFR 2022-06-05 John Lazaro Jain 11:19:00 [facility] CBC WITH PLATELET AND DIFFERENTIAL 2022-06-04 Daryl Villasenorist 11:59:00 [facility] COMPREHENSIVE METABOLIC PANEL 2022-06-04 Daryl Villasenor Me thodist 11:59:00 Hospital FK506 TACROLIMUS LEVEL, TROUGH 2022-06-04 John Lazaro ethodist 11:59:00 [facility] ESTIMATED GFR 2022-06-04 Daryl Villasenor Jain 11:59:00 [facility] OCCULT BLOOD, STOOL 2022-06-04 John Lazaro 05:53:00 [facility] URINE CULTURE 2022-06-03 John Lazaro 21:19:00 [facility] URINALYSIS SCREEN AND MICROSCOPY, 2022-06-03 John Lazaro WITH REFLEX TO CULTURE 20:57:00 [facility] COMPREHENSIVE METABOLIC PANEL 2022-06-03 John Lazaro Ny thodist 15:26:00 [facility] CBC WITH PLATELET AND DIFFERENTIAL 2022-06-03 John Lazaro 15:26:00 [facility] PROTHROMBIN TIME WITH INR 2022-06-03 John Lazaro Method ist 15:26:00 [facility] ESTIMATED GFR 2022-06-03 John Lazaro 15:26:00 [facility] MRI CHOLANGIOGRAM W WO CONTRAST 2022-06-03 Jesus Alberto Casanova 08:46:35 Hospital ACUTE VIRAL HEPATITIS PANEL (HAV, 2022-06-02 Jesus Alberto Casanovaist HBV, HCV) 15:33:00 Hospital COVID-19 QUALITATIVE RT-PCR 2022-06-01 Ye Kowalski thodist 14:19:00 Hospital BILIRUBIN DIRECT 2022-06-01 Ye Kowalski 13:54:00 Hospital URINE CULTURE 2022-06-01 Baichoo, Ye A. Jain 12:48:[address] ABDOMEN PELVIS WO CONTRAST 2022-06-01 Ye Kowalski Jain 12:39:11 Hospital HEPATIC FUNCTION PANEL 2022-06-[address] 12:15:00 Hospital BASIC METABOLIC PANEL 2022-06-01 Ye Kowalski Methodis t 12:15:00 Hospital CBC WITH PLATELET AND DIFFERENTIAL 2022-06-01 Dg Kowalski Jain 12:15:00 Hospital PROTHROMBIN TIME WITH INR 2022-06-01 Ye Kowalski Meth odist 12:15:00 Hospital PARTIAL THROMBOPLASTIN TIME (PTT) 2022-06-01 Ye Kowalski Jain 12:15:00 Hospital TYPE AND SCREEN 2022-06-01 Ye Kowalski Jain 12:15:00 Hospital AMMONIA LEVEL 2022-06-01 Ye Kowalski Jain 12:15:00 Hospital URINALYSIS SCREEN AND MICROSCOPY, 2022-06-01 Ye Kowalski Jain WITH REFLEX TO CULTURE 12:15:00 Hospital LIPASE LEVEL 2022-06-01 Ye Kowalski Jain 12:15:00 Hospital ALCOHOL LEVEL, BLOOD 2022-06-01 Ye Kowalski Jain 12:15:00 Hospital ESTIMATED GFR 2022-06-01 Ye Kowalski Jain 12:15:00 Hospital MAGNESIUM LEVEL 2022-06-01 Ye Kowalski Jain 12:15:00 Hospital EXTERNAL PROVIDER RECORDS 2022-05-12 Doctor Unassigned, Uni versity of 06:01:00 [place] [facility] MAGNESIUM 2022-05-01 [facility], [facility] 10:29:00 Dariela [facility] HEPATIC FUNCTION PANEL ([id number]) 2022-05-01 [facility], [facility] niversity of (ALB,T.PRO,BILI 10:29:00 Dariela [facility] T,BU/BC,ALT,AST,ALK PHOS) [place] BASIC METABOLIC PANEL (NA, K, CL, 2022-05-01 [facility] CO2, GLUCOSE, BUN, CREATININE, CA) 10:29:00 Dariela [facility] CBC WITHOUT DIFF 2022-05-01 [facility], [facility] of 10:29:00 Dariela [facility] Branch MAGNESIUM 2022-04-30 [facility], [facility] of 10:46:00 [facility] HEPATIC FUNCTION PANEL ([id number]) 2022-04-30 [facility], [facility] niversity of (ALB,T.PRO,BILI 10:46:00 Dariela [facility] T,BU/BC,ALT,AST,ALK PHOS) Branch BASIC METABOLIC PANEL (NA, K, CL, 2022-04-30 [facility], [facility] of CO2, GLUCOSE, BUN, CREATININE, CA) 10:46:00 [facility] TACROLIMUS, LEVEL 2022-04-30 [facility], [facility] of 10:46:00 [facility] CBC WITH DIFF 2022-04-30 [facility] 10:46:00 [facility] GALV ONLY - INFLUENZA A B RSV PCR 2022-04-29 [facility] of 18:50:00 [facility] COVID-19 (MOLECULAR TESTING 2022-04-29 [facility] of NUCLEIC ACID AMPLIFICATION) 18:50:00 [facility] LAB ONLY COVID INTERPRETATION 2022-04-29 Rhona [facility] iversity of 18:50:00 [facility] MAGNESIUM 2022-04-29 [facility] of 11:53:00 [facility] BASIC METABOLIC PANEL (NA, K, CL, 2022-04-29 Ajith [facility] CO2, GLUCOSE, BUN, CREATININE, CA) 11:53:00 [facility] CBC WITH DIFF 2022-04-29 [facility] of 11:53:00 [facility] HEPATIC FUNCTION PANEL ([id number]) 2022-04-28 Bo Canseco niversity of (ALB,T.PRO,BILI 21:20:00 [facility] T,BU/BC,ALT,AST,ALK PHOS) Branch BASIC METABOLIC PANEL (NA, K, CL, 2022-04-28 Bo Canseco [facility] CO2, GLUCOSE, BUN, CREATININE, CA) 21:20:00 [facility] CBC WITH DIFF 2022-04-28 Bo Canseco [place] of 21:20:00 [facility] PROTHROMBIN TIME / INR 2022-04-28 Bo Canseco y of 21:20:00 [facility] ACTIVATED PARTIAL THRMPLAS MANOLO 2022-04-28 Bo Canseco U niversity of 21:20:00 [facility] MRSA / MSSA SCREEN BY PCR, KATE 2022-04-28 Bo Canseco of 21:20:00 [facility] PT/INR/PTT 2022-04-28 [facility] 04:30:00 G SARS-COV-2, FLU A/B, RSV 2022-04-28 [facility] 00:31:00 G CORONAVIRUS, COVID-19, TIA 2022-04-28 [facility], [facility] 00:31:[address] ABDOMEN AND PELVIS CONTRAST 2022-04-27 [facility] 22:59:10 Juan U/S ABDOMEN LIMITED 2022-04-[address] [facility] 21:04:32 Juan XRAY CHEST 1 VIEW 2022-04-27 [facility] 18:31:00 Juan URINE DRUG SCREEN 2022-04-27 [facility] 17:08:00 Juan BASIC METABOLIC PANEL 2022-04-27 [facility] 17:02:00 Juan CBC/DIFF 2022-04-27 [facility] 17:02:00 Juan LIPASE 2022-04-27 [facility] 17:02:00 Juan LIVER PROFILE 2022-04-27 [facility] 17:02:00 Juan TROPONIN I 2022-04-27 [facility] 17:02:00 Jaun SALICYLATE 2022-04-27 [facility] 17:02:00 Juan ALCOHOL, MEDICAL USE ONLY 2022-04-27 [facility] 17:02:00 Juan CBC 2022-04-[facility] 17:02:00 Juan 12 LEAD EKG 2022-04-27 [facility] 16:44:54 Juan ECG 12-LEAD 2022-03-02 Kaleigh Ramos Jain 11:36:[address] [facility] [address] ABDOMEN PELVIS W CONTRAST 2022-03-01 Laverne Gaona Ny thodist 20:46:35 [facility] ALCOHOL LEVEL, BLOOD 2022-03-01 Kaleigh Ramos Methodis t 05:49:00 [facility] ECG ED PRELIMINARY INTERPRETATION 2022-03-01 Mike Guzman Jain 03:31:33 [facility] URINALYSIS SCREEN AND MICROSCOPY, 2022-03-01 Chris Ramos Jain WITH REFLEX TO CULTURE 01:52:00 [facility] URINE DRUGS OF ABUSE SCREEN 2022-03-01 Kaleigh Ramos ethodist 01:52:00 [facility] COVID-19 QUALITATIVE RT-PCR 2022-02-28 Kaleigh Ramos ethodist 23:49:00 [facility] CBC WITH PLATELET AND DIFFERENTIAL 2022-02-28 Adelso Ramos Jain 23:47:00 [facility] COMPREHENSIVE METABOLIC PANEL 2022-02-28 Kaleigh Rmaos Jain 23:47:00 Hospital ALCOHOL LEVEL, BLOOD 2022-02-28 Kaleigh Ramos Methodis t 23:47:00 Hospital ACETAMINOPHEN LEVEL 2022-02-28 Kaleigh Ramos Jain 23:47:00 Hospital SALICYLATE LEVEL 2022-02-28 Kaleigh Ramos Jain 23:47:00 [facility] ESTIMATED GFR 2022-02-28 Kaleigh Ramos Jain 23:47:00 Hospital URINE CULTURE 2022-02-28 Kaleigh Ramos Jain 23:34:00 Hospital LIPASE LEVEL 2021-11-01 Sandor Stephen Jain 20:09:00 [facility] CT ABDOMEN PELVIS WO CONTRAST 2021-11-01 Melany Villa Ny thodist 08:20:34 [facility] ECG 12-LEAD 2021-11-01 Melany Villa 07:38:23 Hospital ALCOHOL LEVEL, BLOOD 2021-11-01 Melany Villa 05:59:00 Hospital ALCOHOL LEVEL, BLOOD 2021-11-01 Mendez Soto Methodis t 00:41:00 Hospital ALCOHOL LEVEL, BLOOD 2021-10-31 Mendez Soto t 21:40:00 Hospital URINE DRUGS OF ABUSE SCREEN 2021-10-31 Mendez Soto ethodist 17:19:00 Hospital CBC WITH PLATELET AND DIFFERENTIAL 2021-10-31 Yevgeniy Soto 17:14:00 Hospital COMPREHENSIVE METABOLIC PANEL 2021-10-31 Mendez Soto 17:14:00 Hospital ALCOHOL LEVEL, BLOOD 2021-10-31 Mendez Soto t 17:14:00 Hospital ACETAMINOPHEN LEVEL 2021-10-31 Mendez Soto 17:14:00 Hospital SALICYLATE LEVEL 2021-10-31 Mendez Soto 17:14:00 Hospital ESTIMATED GFR 2021-10-31 Mendez Soto 17:14:00 Hospital COVID-19 QUALITATIVE RT-PCR 2021-10-31 Mendez Sotost 17:14:00 Hospital ECG ED PRELIMINARY INTERPRETATION 2021-10-31 Ash Soto 16:55:[address] ABDOMEN PELVIS W CONTRAST 2021-09-30 Melany Villa hodist 20:08:47 Hospital URINALYSIS SCREEN AND MICROSCOPY, 2021-09-30 Melany Villa WITH REFLEX TO CULTURE 19:46:00 Hospital URINE CULTURE 2021-09-30 Melany Villa 19:46:00 [facility] COMPREHENSIVE METABOLIC PANEL 2021-09-30 Melany Villa thodist 18:39:00 Hospital CBC WITH PLATELET AND DIFFERENTIAL 2021-09-30 July Villa 18:39:00 Hospital ESTIMATED GFR 2021-09-30 Melany Villa 18:39:00 Hospital LIPASE LEVEL 2021-09-30 Melany Villa 18:39:00 Hospital [id number] TACROLIMUS LEVEL, TROUGH 2021-08-24 Bhargav Newman ethodist 10:25:00 [facility] COMPREHENSIVE METABOLIC PANEL 2021-08-24 Bhargav Newman thodist 10:25:00 [facility] BILIRUBIN DIRECT 2021-08-24 Bhargav Newman 10:25:00 [facility] ESTIMATED GFR 2021-08-24 Bhargav Newman 10:25:00 [facility] CV STRESS TEST NUCLEAR CARDIO 2021-08-23 Mel Almonte 18:11:00 [facility] NM MYOCARDIAL PERFUSION REST 2021-08-23 Mel Almonte STRESS 1 DAY 18:11:00 Hospital BASIC METABOLIC PANEL 2021-08-23 Daryl Villasenor 11:37:00 Hospital ESTIMATED GFR 2021-08-23 Daryl Villasenor 11:37:00 [facility] FK506 TACROLIMUS LEVEL, TROUGH 2021-08-23 Bhargav Newman ethodist 11:37:00 [facility] HEPATIC FUNCTION PANEL 2021-08-23 Daryl Villasenor 11:37:00 [facility] ECG 12-LEAD 2021-08-22 Jazzmine Wells 20:03:04 [facility] TTE COMPLETE, WO CONTRAST, W 2021-08-22 Bhargav Newman Met hodist DOPPLER ([id number]) 14:44:00 [facility] ECG 12-LEAD 2021-08-22 Jazzmine Wells 02:46:34 [facility] ECG 12-LEAD 2021-08-21 Jazzmine Wells 23:19:37 [facility] ZZCOVID-19 ANTI-SPIKE IGG ANTIBODY 2021-08-21 Evelio Malhotra Jain TITER 10:16:00 [facility] AMMONIA LEVEL 2021-08-21 Sobeida Ward Jain 10:16:00 Hospital COMPREHENSIVE METABOLIC PANEL 2021-08-21 Sobeida Ward thodist 10:16:00 [facility] HC COMPLETE BLD COUNT W/AUTO DIFF 2021-08-21 Sobeida Ward Jain 10:16:00 Hospital MAGNESIUM LEVEL 2021-08-21 Sobeida Ward Jain 10:16:00 Hospital PHOSPHORUS LEVEL 2021-08-21 Sobeida Ward Jain 10:16:00 [facility] ZZCOVID-19 SEROLOGY PATIENT 2021-08-21 Grupo Malhotra odist SURVEILLANCE 10:16:00 [facility] ESTIMATED GFR 2021-08-21 Sobeida Ward 10:16:00 Hospital [id number] TACROLIMUS LEVEL, RANDOM 2021-08-20 Deysi Guerra ethodist 22:30:00 Hospital US ABDOMEN COMPLETE 2021-08-20 Deysi Guerra 22:25:56 Hospital US ABDOMINAL DOPPLER 2021-08-20 Deysi Guerra 22:25:21 Hospital HC COMPLETE BLD COUNT W/AUTO DIFF 2021-08-20 Ed, Sobeida Jain 09:56:00 Hospital LACTIC ACID LEVEL 2021-08-20 Ahmad, Sobeida Jain 09:56:00 Hospital RETICULOCYTE COUNT 2021-08-20 Ahmad, Sobeida Jain 09:56:00 Hospital FK506 TACROLIMUS LEVEL, TROUGH 2021-08-20 Sobeida Ward ethodist 09:46:00 Hospital PROTHROMBIN TIME WITH INR 2021-08-20 Ramond, Sobeida Method ist 09:46:00 Hospital COMPREHENSIVE METABOLIC PANEL 2021-08-20 Ed, Sobeida Cervantes thodist 09:46:00 Hospital AMYLASE LEVEL 2021-08-20 Ramond, Sobeida Jain 09:46:00 Hospital LIPASE LEVEL 2021-08-20 Ahmad, Sobeida Jain 09:46:00 Hospital LIPID PANEL 2021-08-20 Ramond, Sobeida Jain 09:46:00 Hospital MAGNESIUM LEVEL 2021-08-20 Ahmad, Sobeida Jain 09:46:00 Hospital PHOSPHORUS LEVEL 2021-08-20 Ramond, Sobeida Jain 09:46:00 Hospital THYROID STIMULATING HORMONE 2021-08-20 Ed, Sobeida Meth odist 09:46:00 Hospital T4, FREE 2021-08-20 Ahmad, Sobeida Jain 09:46:00 Hospital PROCALCITONIN 2021-08-20 Aholivad, Sobeida Jain 09:46:00 Hospital ESTIMATED GFR 2021-08-20 Ramond, Sobeida Jain 09:46:00 Hospital TROPONIN T 2021-08-19 Ahmad, Sobeida Jain 21:53:00 Hospital COVID-19 QUALITATIVE RT-PCR 2021-08-19 Martin Womack Meth odist 20:36:00 [facility] TROPONIN T 2021-08-19 mad, Sobeida Jain 18:07:00 Hospital URINE CULTURE 2021-08-19 Martin Womack 16:56:00 [facility] URINALYSIS SCREEN AND MICROSCOPY, 2021-08-19 Albertina Womack WITH REFLEX TO CULTURE 16:56:00 [facility] CT ABDOMEN PELVIS W CONTRAST 2021-08-19 Martin Womack hodist 15:19:16 [facility] COMPREHENSIVE METABOLIC PANEL 2021-08-19 Martin Womack [facility] 13:58:00 [facility] LIPASE LEVEL 2021-08-19 Martin Womack 13:58:00 [facility] HC COMPLETE BLD COUNT W/AUTO DIFF 2021-08-19 Albertina Womack 13:58:00 [facility] TROPONIN T 2021-08-19 Sobeida Ward 13:58:00 [facility] B NATRIURETIC PEPTIDE 2021-08-19 Martin Womack 13:58:00 [facility] ESTIMATED GFR 2021-08-19 Martin Womack 13:58:00 [facility] ECG ED PRELIMINARY INTERPRETATION 2021-08-19 Albertina Womack 13:42:45 [facility] ECG 12-LEAD 2021-08-19 Martin Womack 13:42:14 [facility] ETHANOL 2021-08-[address] [facility] 03:41:00 [facility] ETHANOL 2021-08-09 [facility], Tom [facility] 23:07:00 [facility] CBC W/PLT COUNT & AUTO 2021-08-09 [facility] DIFFERENTIAL 17:44:00 [facility] COMPREHENSIVE METABOLIC PANEL 2021-08-09 [facility] 17:[facility] LIPASE 2021-08-09 [facility] 17:44:00 [facility] ETHANOL 2021-08-09 [facility] 17:44:00 [facility] CBC W/PLT COUNT & AUTO 2021-08-09 [facility] DIFFERENTIAL 17:44:00 [facility] Plan of Care Planned Activity Planned Date Details Comments Source Future Scheduled 2022-07-28 HEPATITIS B VACCINES Met [facility] Test 02:22:12 (1 of 3 - 3-dose series) [code = HEPATITIS B VACCINES (1 of 3 - 3-dose series)] Future Scheduled 2022-07-28 COVID-19 VACCINE (#1) [facility] [place] [facility] Test 02:22:12 [code = COVID-19 VACCINE (#1)] Future Scheduled 2022-07-28 Pneumococcal Vaccine: [facility] [place] [facility] Test 02:22:12 Pediatrics (0 to 5 Years) and At-Risk Patients (6 to 64 Years) (1 - PCV) [code = Pneumococcal Vaccine: Pediatrics (0 to 5 Years) and At-Risk Patients (6 to 64 Years) (1 - PCV)] Future Scheduled 2022-07-28 SHINGLES VACCINES (1 Met [facility] Test 02:22:12 of 2) [code = SHINGLES VACCINES (1 of 2)] Future Scheduled 2022-07-[address] [facility] [place] [facility] Test 02:22:12 [code = COLONOSCOPY SCREENING] Future Scheduled 2022-07-28 INFLUENZA VACCINE Method [facility] Test 02:22:12 [code = INFLUENZA VACCINE] Future Scheduled 2022-07-28 HEPATITIS B VACCINES Met [facility] Test 02:22:12 (1 of 3 - 3-dose series) [code = HEPATITIS B VACCINES (1 of 3 - 3-dose series)] Future Scheduled 2022-07-28 COVID-19 VACCINE (#1) [facility] [place] [facility] Test 02:22:12 [code = COVID-19 VACCINE (#1)] Future Scheduled 2022-07-28 Pneumococcal Vaccine: [facility] [place] [facility] Test 02:22:12 Pediatrics (0 to 5 Years) and At-Risk Patients (6 to 64 Years) (1 - PCV) [code = Pneumococcal Vaccine: Pediatrics (0 to 5 Years) and At-Risk Patients (6 to 64 Years) (1 - PCV)] Future Scheduled 2022-07-28 SHINGLES VACCINES (1 Met [facility] Test 02:22:12 of 2) [code = SHINGLES VACCINES (1 of 2)] Future Scheduled 2022-07-[address] [facility] [place] [facility] Test 02:22:12 [code = COLONOSCOPY SCREENING] Future Scheduled 2022-07-28 [facility]ACCINE [facility] 02:22:12 [code = INFLUENZA VACCINE] Future Scheduled 2022-06-[address] [facility] Test 00:00:00 (12+) [code = Medical Center DEPRESSION SCREENING (12+)] Future Scheduled 2022-06-[address] [facility] Test 00:00:00 (12+) [code = Medical Center DEPRESSION SCREENING (12+)] Future Scheduled 2022-03-14 [facility] Test 00:00:00 (>/= 19 yrs) [code = IMM Influenza Seasonal (>/= 19 yrs)] Future Scheduled 2022-03-14 [facility] Test 00:00:00 (>/= 19 yrs) [code = IMM Influenza Seasonal (>/= 19 yrs)] Future Scheduled 2022-02-22 SHINGLES VACCINES ([address] [facility] Test 00:00:00 of 2) [code = SHINGLES Medic al Center VACCINES (1 of 2)] Future Scheduled 2022-02-22 SHINGLES VACCINES ([address] [facility] Test 00:00:00 of 2) [code = SHINGLES Medic al Center VACCINES (1 of 2)] Future Scheduled 2022-02-22 [facility]:00 malignant neoplasm of colon (procedure) [code = 060800700] Future Scheduled 2022-02-22 [facility] 00:00:00 malignant neoplasm of colon (procedure) [code = 706099942] Future Scheduled 2022-02-12 INFLUENZA VACCINE (#1) [facility] 00:00:00 [code = INFLUENZA Medical Ce nter VACCINE (#1)] Future Scheduled 2022-02-12 INFLUENZA VACCINE (#1) [facility] Test 00:00:00 [code = INFLUENZA Medical Ce nter VACCINE (#1)] Future Scheduled 2007-02-[address] [facility] Test 00:00:00 (procedure) [code = [facility] 17602950] Future Scheduled 2007-02-[address] [facility] Test 00:00:00 (procedure) [code = [facility] 10926959] Future Scheduled 1991-02-22 DTAP/TDAP/TD [facility]ACCINES [facility] Test 00:00:00 (1 - Tdap) [code = Medical C enter DTAP/TDAP/TD VACCINES (1 - Tdap)] Future Scheduled 1991-02-22 DTAP/TDAP/TD [facility]ACCINES [facility] Test 00:00:00 (1 - Tdap) [code = Medical C enter DTAP/TDAP/TD VACCINES (1 - Tdap)] Future Scheduled 1990-02-22 HEPATITIS C [facility]CRE[facility]ING [facility] Test 00:00:00 [code = HEPATITIS C Medical Center SCREENING] Future Scheduled 1990-02-22 HEPATITIS C [facility] Test 00:00:00 [code = HEPATITIS C Medical Center SCREENING] Future Scheduled [address] [facility] Test 00:00:00 Counseling and Medical Cente r Screening (12+) [code = Tobacco Cessation Counseling and Screening (12+)] Future Scheduled [address] [facility] Test 00:00:00 Counseling and Medical Cente r Screening (12+) [code = Tobacco Cessation Counseling and Screening (12+)] Future Scheduled 1978-02-22 Imm Pneumococcal 0-64 [facility] Test 00:00:00 (1 - PCV) [code = Imm Pneumococcal 0-64 (1 - PCV)] Future Scheduled 1978-02-22 Imm Pneumococcal 0-64 [facility] Test 00:00:00 (1 - PCV) [code = Imm Pneumococcal 0-64 (1 - PCV)] Future Scheduled 1972 COVID-19 VACCINE (#1[facility] 00:00:00 [code = COVID-[address] VACCINE (#1)] Future Scheduled 1972 COVID-19 VACCINE (#1[facility] 00:00:00 [code = COVID-[address] VACCINE (#1)] Future Scheduled 1972 COVID-19 Vaccine (#1) [facility] Test 00:00:00 [code = COVID-19 Vaccine (#1)] Future Scheduled 1972 COVID-19 Vaccine (#1) [facility] Test 00:00:00 [code = COVID-19 Vaccine (#1)] Future Scheduled [address] [facility] Test 00:00:00 (combo) [code = CT Medical C enter Colonography (combo)] Future Scheduled [address] [facility] Test 00:00:00 malignant neoplasm of Medica l Center colon (procedure) [code = 189171166] Future Scheduled [address] [facility] Test 00:00:00 malignant neoplasm of Medica l Center colon (procedure) [code = 099161808] Future Scheduled [address] [facility] Test 00:00:00 malignant neoplasm of Medica l Center colon (procedure) [code = 510150052] Future Scheduled [address] [facility] [facility] Test 00:00:00 malignant neoplasm of Medica l Center colon (procedure) [code = 249662278] Future Scheduled 1972 Sigmoidoscopy [code [facility] Test 00:[facility] S[facility]oidoscopy] Medical Nghia singh Future Scheduled [address] [facility] Test 00:00:00 (combo) [code = CT Medical C enter Colonography (combo)] Future Scheduled [address] [facility] [facility] Test 00:00:00 malignant neoplasm of Medica l Center colon (procedure) [code = 464454406] Future Scheduled [address] [facility] Test 00:00:00 malignant neoplasm of Medica l Center colon (procedure) [code = 986272488] Future Scheduled [address] [facility] [facility] Test 00:00:00 malignant neoplasm of Medica l Center colon (procedure) [code = 947641043] Future Scheduled [address] [facility] [facility] Test 00:00:00 malignant neoplasm of Medica l Center colon (procedure) [code = 290504429] Future Scheduled 1972 Sigmoidoscopy [facility]code [facility] 00:[facility] Sigmoidoscopy] Medical Nghia r Encounters Start End Encounter Admission Attending Care Care Encounter Source Date/Time Date/Time Type Type Clinicians Facility Department ID 2022-04-28 [facility] [id number] [facility] 00:00:00 Encounter [facility] 2022-04-28 [facility] [id number] [facility] 00:00:00 Encounter [facility] 2022-04-17 Outpatient [facility] [id number] [place] 12:31:07 [id number] [facility] 2022-04-15 Outpatient [facility] [id number] [place] 17:51:03 [id number] [facility] 2022-03-25 Outpatient [facility] [id number] [facility] 08:09:07 [id number] [facility] 2022-03-13 Inpatient TEXANA TEXANA [id number] [place] 10:19:[id number] [place] [address] 2022-03-09 Inpatient TEXANA TEXANA [id number] [place] 14:48:[id number] [place] [address] 2022-03-05 Inpatient TEXANA TEXANA [id number] [place] 08:29:[id number] [place] [address] 2022-03-03 Inpatient TEXANA TEXANA [id number] [place] 09:35:[id number] [place] [address] 2022-02-25 Inpatient TEXANA TEXANA [id number] [place] 10:46:[id number] [place] [address] 2022-02-19 Inpatient TEXANA TEXANA [id number] [place] 15:18:[id number] [place] [address] 2022-02-18 Inpatient TEXANA TEXANA [id number] [place] 11:18:[id number] [place] [address] 2022-02-15 Inpatient TEXANA TEXANA [id number] [place] 10:41:[id number] [place] [address] 2022-07-05 2022-07-28 [facility] Sybil Pradhan 1.2.840.1 10 [id number] Methodi 09:38:00 07:20:00 Encounter Saghir, Eva 92358.1.1 [address] [facility] 3.430.2.7 [facility], Sari .3.470637 l .8 2022-07-05 2022-07-28 [facility] [id number] Methodi 09:38:00 07:20:00 Encounter Saghir, Eva 89311.1.1 307 [facility], Ailyn 3.430.2.7 [facility], Sari .3.494404 l .8 2022-07-28 2022-07-28 Telephone Andrea, 1.2.840.1 [id number] 2099 [id number] Methodi 00:00:00 00:00:[address] 3.430.2.7 Hospit a .3.805946 l .8 2022-07-28 2022-07-28 Telephone Andrea, 1.2.840.1 [id number] Methodi 00:00:00 00:00:[address] 3.430.2.7 Hospit a .3.480345 l .8 2022-07-28 2022-07-28 Telephone [place], 1.2.840.1 [id number] [id number] Methodi 00:00:00 00:00:[address] Katia 3.430.2.7 Hospit a .3.046302 l .8 2022-07-28 2022-07-28 Telephone [facility], 1.2.840.1 [id number] Methodi 00:00:00 00:00:[address] 3.430.2.7 Hospit a .3.729480 l .8 2022-07-28 2022-07-28 Telephone Andrea, 1.2.840.1 [id number] Methodi 00:00:00 00:00:[address] 3.430.2.7 Hospit a .3.674589 l .8 2022-07-28 2022-07-28 Telephone Andrea, 1.2.840.1 [id number] 2099 [id number] Methodi 00:00:00 00:00:[address] 3.430.2.7 Hospit a .3.585185 l .8 2022-07-28 2022-07-28 Telephone [place], 1.2.840.1 [id number] 158 [id number] Methodi 00:00:00 00:00:[address] Katia 3.430.2.7 Hospit a .3.618221 l .8 2022-07-28 2022-07-28 [facility], 1.2.840.1 [id number] 21 [id number] Methodi 00:00:00 00:00:[address] 3.430.2.7 Hospit a .3.488514 l .8 2022-07-01 2022-07-01 Clinical 1.2.840.1 [id number] Methodi 16:00:00 17:00:[address] 3.430.2.7 Hospit a .3.646256 l .8 2022-07-01 2022-07-01 Clinical 1.2.840.1 [id number] Methodi 16:00:00 17:00:[address] 3.430.2.7 Hospit a .3.464375 l .8 2022-06-06 2022-06-26 [facility] [place] M. 1.2.840.1 10 [id number] Methodi 16:55:00 20:22:00 Encounter Jace Marsmichele Ryan 56625.1.1 [address] Luc[address] Gonzalez 3.430.2.7 Hospita .3.773951 l .8 2022-06-06 2022-06-26 [facility] [place] M. 1.2.840.1 10 [id number] Methodi 16:55:00 20:22:00 Encounter Chetan Marsbabs Ryan 51388.1.1 [address] Gonzalez 3.430.2.7 Hospita .3.502560 l .8 2022-06-10 2022-06-10 Surgery Pedro 1.2.840.1 [id number] 8403 Methodi 12:45:00 13:45:00 Grupo Garcia [address]645.1.[address] 3.430.2.7 Hospit a .3.366810 l .8 2022-06-10 2022-06-10 Surgery Pedro 1.2.840.1 [id number] 3019 Methodi 12:45:00 13:45:00 Grupo Garcia 46344.1.[address] 3.430.2.7 Hospit a .3.474181 l .8 2022-06-10 2022-06-10 Anesthesia Jaime Isaac 1.2.840. 1 [id number] Methodi 12:48:00 13:15:00 Event Gini Mayfield 67694.1.[address] 3.430.2.7 Hospit a .3.710559 l .8 2022-06-10 2022-06-10 Anesthesia Jaime Isaac Vida 1.2.840. 1 [id number] Methodi 12:48:00 13:15:00 Event Gini Mayfield 01147.1.[address] 3.430.2.7 Hospit a .3.228273 l .8 2022-06-01 2022-06-06 [facility] Ye Olivera 1.2.840.1 [id number] [id number] Methodi 05:51:00 16:08:00 Encounter Latanya Mitchelljose Rizo 53956.1.[address] TejasJohn 3.430.2.7 Hospita .3.460689 l .8 2022-06-01 2022-06-06 [facility] Ye A. 1.2.840.1 88711 1088 [id number] Methodi 05:51:00 16:08:00 Encounter Domingo Mitchell Sallie 99709.1.[address] TejasJohn 3.430.2.7 Hospita .3.376524 l .8 2022-06-01 2022-06-01 Telephone Andrea 1.2.840.1 [id number] 2100 [id number] Methodi 00:00:00 00:00:[address] 3.430.2.7 Hospit a .3.786619 l .8 2022-06-01 2022-06-01 Telephone Nitesh 1.2.840.1 [id number] 2099 [id number] Methodi 00:00:00 00:00:[address] 3.430.2.7 Hospit a .3.067767 l .8 2022-06-01 2022-06-01 Telephone Andrea, 1.2.840.1 [id number] 2100 016142 Methodi 00:00:00 00:00:[address] 3.430.2.7 Hospit a .3.278601 l .8 2022-06-01 2022-06-01 Telephone Nitesh, 1.2.840.1 [id number] 2099 [id number] Methodi 00:00:00 00:00:[address] 3.430.2.7 Hospit a .3.406291 l .8 2022-05-12 2022-05-12 Orders Doctor SANDOR 1.2.840.114 [id number] Univers 00:00:00 00:00:00 Only Unassigned, SHEN 350.1.13.10 ity of [place] [facility] 4.2.7.2.686 Tono as [id number] [facility] [address] 2022-04-28 2022-05-01 Inpatient U [facility] [id number] Univers 14:11:00 18:15:00 ROSCOE domínguez [facility] 2022-04-28 2022-05-01 [facility] LUISA Oliver 1.2.510.009 [id number] [id number] Univers 14:11:00 18:15:00 Encounter Roscoe GOTTI 350.1.13.10 ity [facility] 4.2.7.2.686 Tono as [id number] [facility] [address] 2022-04-27 2022-04-28 Emergency Juan Perales [facility] 1007 094 [id number] [place] 15:30:00 13:15:00 Stewartzuleyma [facility] 2022-04-27 2022-04-28 Emergency 1 Juan Perales [facility] 1007 094 [id number] Shetty 15:30:00 13:15:00 [facility] 2022-04-27 2022-04-27 Emergency SANTKUMAR [facility] [id number] [place] 22:20:22 22:59:59 , JUAN Velasquez 2022-04-27 2022-04-27 Emergency [facility] [id number] Shetty 20:40:22 21:04:38 [facility] 2022-04-27 2022-04-27 Emergency [facility] [id number] Shetty 18:21:18 18:31:37 [facility] 2022-04-27 2022-04-27 Outpatient [facility] [id number] [address] [place] [address] 14:58:30 15:29:00 [facility] 2022-04-10 2022-04-10 Emergency Emergency Hossein Carrion [facility] JM0 [id number] [facility] 22:13:00 22:13:00 28 2022-04-10 2022-04-10 Emergency [facility] [id number] [address] [place] [address] 22:13:00 22:13:00 28 2022-03-25 2022-03-25 Clinical 1.2.840.1 [id number] [id number] Methodi 10:00:00 11:00:[address] 3.430.2.7 Hospit a .3.618101 l .8 2022-03-25 2022-03-25 Clinical 1.2.840.1 [id number] 03333 Methodi 10:00:00 11:00:[address] 3.430.2.7 Hospit a .3.823269 l .8 2022-02-28 2022-03-02 [facility], 1.2.840.1 [id number] 158 [id number] Methodi 18:31:00 11:50:[address] 3.430.2.7 Hospit a .3.206518 l .8 2022-02-28 2022-03-02 [facility], 1.2.840.1 [id number] 531 [id number] Methodi 18:31:00 11:50:[address] 3.430.2.7 Hospit a .3.447890 l .8 2022-02-28 2022-02-28 Travel 1.2.840.1 1.2.002.778 8000 [id number] Methodi 00:00:00 00:00:[address] 3.430.2.7 0.2.7.3.698 Ho spita .3.387580 084.8 l .8 2022-02-28 2022-02-28 Travel 1.2.840.1 1.2.475.437 5509 [id number] Methodi 00:00:00 00:00:[address] 3.430.2.7 0.2.7.3.698 Ho spita .3.944559 084.8 l .8 2022-02-14 2022-02-14 Emergency C DIMITRIOS, [facility] [id number] 90 [facility] 17:55:00 20:20:00 [facility] 2021-11-17 2021-11-18 Emergency Emergency Hossein Carrion [facility] JM0 [id number] [facility] 20:05:00 03:20:00 07 2021-11-17 2021-11-17 Emergency Emergency CarrionHossein [facility] JM0 [id number] [facility] 20:05:00 20:05:00 07 2021-10-31 2021-11-02 Emergency Rivenes, 1.2.840.1 [id number] Methodi 11:37:00 18:56:[address]258.1.[address] 3.430.2.7 Hospit a .3.803777 l .8 2021-10-31 2021-11-02 Emergency Rivenes, 1.2.840.1 [id number] 802 [id number] Methodi 11:37:00 18:56:[address] 70281.1.[address] 3.430.2.7 Hospit a .3.886749 l .8 2021-11-02 2021-11-02 [facility] [id number] [address] [place] [address] 12:00:00 12:01:00 Health 2021-09-30 2021-09-30 Emergency Rivenes, 1.2.840.1 [id number] [id number] Methodi 13:09:00 17:18:00 [address] 3.430.2.7 Hospit a .3.629852 l .8 2021-09-30 2021-09-30 Emergency Rivenes, 1.2.840.1 [id number] Methodi 13:09:00 17:18:00 Devyn Arango [address]36.1.[address] 3.430.2.7 Hospit a .3.490935 l .8 2021-08-19 2021-08-24 [facility] Martin Womack 1.2.840.1 1 [id number] Methodi 07:36:00 13:44:00 Encounter Ed Sobeida 10664.1.1 564 [facility] 3.430.2.7 Hospita .3.980523 l .8 2021-08-19 2021-08-24 [facility] Martin Womack 1.2.840.1 1 [id number] Methodi 07:36:00 13:44:00 Encounter Kvng Warder 43134.1.[address] [facility] 3.430.2.7 Hospita .3.209793 l .8 2021-08-19 2021-08-19 Telephone Ajith 1.2.840.1 [id number] 2099 [id number] Methodi 00:00:00 00:00:[address] 3.430.2.7 Hospit a .3.990836 l .8 2021-08-19 2021-08-19 Telephone Ajith, 1.2.840.1 [id number] 2099 [id number] Methodi 00:00:00 00:00:[address] 3.430.2.7 Hospit a .3.405322 l .8 2021-08-09 2021-08-10 Emergency ER RADHA WELLS [facility] Emergency 20 [id number] [facility] 17:18:00 06:04:00 2021-08-09 2021-08-10 Emergency Stone, Radha [facility] [id number] 17:18:00 06:04:00 [facility] 2021-08-09 2021-08-10 Emergency ER Stone, Radha [facility] [id number] [id number] 17:18:00 06:04:00 [facility] 2021-08-09 2021-08-09 Travel [facility] [id number] [facility] 00:00:00 00:00:00 [facility] 2021-08-09 2021-08-09 Travel [facility] [id number] [facility] 00:[facility]00 00:00:00 [facility] 2020-12-20 2020-12-20 Emergency EL Andrea, HCABM DYANA [id number] [facility] 07:43:00 10:56:00 Tinuola 76 [facility] 2020-10-06 2020-10-06 Emergency CRUZ, MARINE [facility] 064 2100 [id number] [place] 00:00:00 00:00:[address] 2020-09-21 2020-09-25 Inpatient TEJAS, [place] [address] [id number] 57 [place] 00:00:00 00:00:00 JOHN [address] 2020-07-20 2020-07-23 Inpatient MARY KATE, ITI [place] [address] [id number] 81084 [place] 00:00:00 00:00:[address] 2020-05-28 2020-05-28 Outpatient ALBERT, [facility] [id number] 91090 [place] 00:00:00 00:00:00 RAFIK [address] 2020-05-28 2020-05-28 Outpatient BERNAL, [facility] 00464 15759 [place] 00:00:00 00:00:00 LEW [address] 2020-04-30 2020-04-30 Outpatient ALBERT, [facility] 79288 83446 [place] 00:00:00 00:00:00 RAFIK [address] 2020-04-30 2020-04-30 Outpatient BERNAL, [facility] 37379 48258 [place] 00:00:00 00:00:00 LEW [address] 2020-04-17 2020-04-21 Inpatient MYLES GOTTI [facility]4 68822 14321 [place] 00:00:00 00:00:[address] 2020-04-12 2020-04-12 Outpatient ALBERT, [facility] 75999 87767 [place] 00:00:00 00:00:00 MATTHEW [address] 2020-01-29 2020-01-31 Outpatient DARRELL [facility] 021 [id number] 427 [place] 00:00:00 00:00:00 SHEPARD, [address] 2019-12-05 2019-12-05 Outpatient ALBERT, [facility] 48769 04241 [place] 00:00:00 00:00:00 MATTHEW [address] 2019-11-27 2019-11-27 Outpatient ALBERT, [facility] 36136 90546 [place] 00:00:00 00:00:00 MATTHEW [address] 2019-11-27 2019-11-27 Outpatient PEDRO, [facility] [id number] 819 [place] 00:00:00 00:00:00 GRUPO [address] 2019-06-19 2019-06-24 Inpatient LOZA, [facility] [id number] 6629 [place] 00:00:00 00:00:00 LEW [address] 2019-06-19 2019-06-19 Emergency E [facility] 7502 [facility] 12:00:00 12:00:00 2019-05-05 2019-05-21 Inpatient DARRELL [facility] 012 [id number] 07 [place] 00:00:00 00:00:00 SHEPARD, [address] Results Test Description Test Time Test Comments Results Result Comments Source Urine culture 2022-07-23 23:25:00 Test Item Value Reference Range Interpretation Comme nts Urine culture (test code = 2914586) SEE COMMENT Bacteriuria screen negative. [facility] [id number] 23:25:00 Test Item Value Reference Range Interpretation Comments Urine culture (test SEE COMMENT Bacteriu josué screen code = 0005602) negative. [facility] [place] 12 [id number] 03:38:35 Test Item Value Reference Range Interpretation Comments Ventricular rate (test 62 code = 253) Atrial rate (test code 62 = 255) MA interval (test code 164 = 266) QRSD interval (test 108 code = 260) QT interval (test code 412 = 264) QTC interval (test code 418 = 265) P axis 1 (test code = 33 267) QRS axis 1 (test code = -46 268) T wave axis (test code 44 = 270) EKG impression (test Normal sinus code = 273) rhythm-Left anterior fascicular block- [facility] [place] 12 [id number] 03:38:35 Test Item Value Reference Range Interpretation Comments Ventricular rate (test 62 code = 253) Atrial rate (test code 62 = 255) MA interval (test code 164 = 266) QRSD interval (test 108 code = 260) QT interval (test code 412 = 264) QTC interval (test code 418 = 265) P axis 1 (test code = 33 267) QRS axis 1 (test code = -46 268) T wave axis (test code 44 = 270) EKG impression (test Normal sinus code = 273) rhythm-Left [facility] fasc[facility] [id number] 16:24:00 Test Item Value Reference Range Interpretation Comments Phosphatidyl 135 ng/mL INTERPRETIVE ethanol, INFORMATION:Sabrina sphatidylethanol 16:0/18:1 (PEth), Whole (POPEth) BloodPhosphatid ylethanol (PEth) (test code = homologues Resu lt Interpretation [id number]) PEth 16:0/18:1 (POPEth) Less than 10 ng/mL.. ..........Not detectedLess th an 20 ng/mL.......... ..Abstinence or light alcohol c [id number] - 200 ng/mL.......... ......Moderate alcohol consump tionGreater than 200 ng/mL...... ..Heavy alcohol consumption or chronic alcohol usePEth 16:0/18 :2 (PLPEth)....... Reference ranges are not well established.(Re ference: Radha Israel and Yola Canseco 2018 J. Forensic Sci) Phosphatidyleth anol (PEth) is a group of phosph olipids formed in the presence of ethanol, phospholipase D and phosphatidylcho line. PEth is known to be a d irect alcohol biomarker. The predominant PEth homologues are PEth 16:0/18:1 (POPEth) and PE th 16:0/18:2 (PLPEth), which account for 37-46% and 26-2 8% of the total PEth homologues , respectively. PEth is incorpo rated into the phospholipid me mbrane of red blood cells and has a general half-life of 4- 10 days and a window of detec tion of 2-4 weeks. However, the window of detection is lo nger in individuals who chronically or excessively con sume alcohol. The limit of quanti fication is 10 ng/mL. Serial m onitoring of PEth may be helpful in monitoring alcohol abstine nce over time. PEth results sh ould be interpreted in the context of the patient's c linical and behavioral hist ory. Patients with advanced l iver disease may have falsely el evated PEth concentrations (Dimitrios VL et al 2018, [place] m Clinical & Experimental Re search). Test developed and c haracteristics determined by A [facility] Laboratories. See Compliance Statement B: Response Biomedical/[employer] Phosphatidyl 50 ng/mL Result reviewed by medical ethanol, director.Perfor med By: Ceros 16:0/18:[address] [place] [address] (PLPEth) [place], [place] [address]Laboratory (test code = Director: Ally Lu, [id number] GASTELUM, PhD [facility] HospitalPhosphatidylethanol, [id number] 16:24:00 Test Item Value Reference Range Interpretation Comments Phosphatidyl 135 ng/mL INTERPRETIVE ethanol, INFORMATION:Sabrina sphatidylethanol 16:0/18:1 (PEth), Whole (POPEth) BloodPhosphatid ylethanol (PEth) (test code = homologues Resu lt Interpretation 28820-7) PEth 16:0/18:1 (POPEth) Less than 10 ng/mL.. ..........Not detectedLess th an 20 ng/mL.......... ..Abstinence or light alcohol c cctnrmposu65 - 200 ng/mL.......... ......Moderate alcohol consump tionGreater than 200 ng/mL...... ..Heavy alcohol consumption or chronic alcohol usePEth 16:0/18 :2 (PLPEth)....... Reference ranges are not well established.(Re ference: Radha Israel and Yola Canseco 2018 J. Forensic Sci) Phosphatidyleth anol (PEth) is a group of phosph olipids formed in the presence of ethanol, phospholipase D and phosphatidylcho line. PEth is known to be a d irect alcohol biomarker. The predominant PEth homologues are PEth 16:0/18:1 (POPEth) and PE th 16:0/18:2 (PLPEth), which account for 37-46% and 26-2 8% of the total PEth homologues , respectively. PEth is incorpo rated into the phospholipid me mbrane of red blood cells and has a general half-life of 4- 10 days and a window of detec tion of 2-4 weeks. However, the window of detection is lo nger in individuals who chronically or excessively con sume alcohol. The limit of quanti fication is 10 ng/mL. Serial m onitoring of PEth may be helpful in monitoring alcohol abstine nce over time. PEth results sh ould be interpreted in the context of the patient's c linical and behavioral hist ory. Patients with advanced l iver disease may have falsely el evated PEth concentrations (Dimtirios FUNG et al 2018, [place]coh[place] m Clinical & Experimental Re search). Test developed and c haracteristics determined by A [facility] Laboratories. See Compliance Statement B: Response Biomedical/[employer] Phosphatidyl 50 ng/mL Result reviewed by medical ethanol, director.Perfor med By: Ceros 16:0/18:[address] [place] [address] (PLPEth) [place], [place] [address]Laboratory (test code = Director: Ally Lu, 72474-9Wilfrid GASTELUM, PhD [facility] Hospital[facility] specific [id number] 11:21:48 Test Item Value Reference Range Interpretation Comments DSA serum ID (test code = [id number] 5858) DSA serum collection D&T 06/09/2022 12:06 PM (test code = 5859) DSA class I antibody A80 assignment (test code = 5862) DSA antibody I comments NONE (test code = 5863) DSA cPRA class I (test 0 code = 5860) DSA class II antibody DR51 assignment (test code = 5864) DSA antibody II comments NONE (test code = 5865) DSA cPRA class II (test 29 code = 5861) Case number (test code = [id number]) Donor specific antibody See link below for (test code = 1080) PDF Lab Report [facility] HospitalDonor specific wkpypxmg8220-76-73 11:21:48 Test Item Value Reference Range Interpretation Comments DSA serum ID (test code = [id number] 5858) DSA serum collection D&T 06/09/2022 12:06 PM (test code = 5859) DSA class I antibody A80 assignment (test code = 5862) DSA antibody I comments NONE (test code = 5863) DSA cPRA class I (test 0 code = 5860) DSA class II antibody DR51 assignment (test code = 5864) DSA antibody II comments NONE (test code = 5865) DSA cPRA class II (test 29 code = 5861) Case number (test code = [id number]) Donor specific antibody See link below for (test code = 1080) PDF Lab Report [facility] HospitalImmunofixation, [id number] 12:56:00 Test Item Value Reference Range Interpretation Comments Immunofixatio SEE COMMENT See electropho resis n, urine report below. (test code = 1599) DESMOND (test IFEU add by code = DESMOND) Pathologist reviewing electrophoresis. [facility] HospitalImmunofixation, [id number] 12:56:00 Test Item Value Reference Range Interpretation Comments Immunofixatio SEE COMMENT See electropho resis n, urine report below. (test code = 1599) DESMOND (test IFEU add by code = DESMOND) Pathologist reviewing electrophoresis. [facility] pathology [id number] 16:13:58 Test Item Value Reference Range Interpretation Comments Case number (test code = [id number]) Surgical pathology See link below for report (test code = PDF Lab Report 2255) Result status (test code This is Final Report = [id number]) [id number] [facility] [id number] 16:13:58 Test Item Value Reference Range Interpretation Comments Case number (test code = [id number]) Surgical pathology See link below for report (test code = PDF Lab Report 2255) Result status (test code This is Final Report = [id number]) for [id number] [facility] (COVID-19) RNA [Presence] in Respiratory specimen by TIA with probe fexpkjlap4851-96-81 10:52:26 Test Item Value Reference Range Interpretation Comments SARS-CoV-2 (COVID-19) RNA Not detected [Presence] in Respiratory specimen by TIA with probe detection (test code = 55728-4) Whether patient is employed in a Unknown healthcare setting (test code = 08977-5) Whether the patient has symptoms Unknown related to condition of interest (test code = 10286-6) Whether the patient was Unknown hospitalized for condition of interest (test code = 30887-4) Whether the patient was admitted Unknown to intensive care unit (ICU) for condition of interest (test code = 67268-4) Whether patient resides in a Unknown congregate care setting (test code = 27151-0) status (test code = Unknown 92101-3) Date and time of symptom onset Unknown (test code = 34896-9) [facility] ([facility] RNA [Presence] in Respiratory specimen by TIA with probe fxmhmfzyu5379-99-58 09:14:53 Test Item Value Reference Range Interpretation Comments SARS-CoV-2 (COVID-19) RNA Not detected [Presence] in Respiratory specimen by TIA with probe detection (test code = 84414-6) Whether patient is employed in a Unknown healthcare setting (test code = 37974-7) Whether the patient has symptoms Unknown related to condition of interest (test code = 63621-6) Whether the patient was Unknown hospitalized for condition of interest (test code = 56365-1) Whether the patient was admitted Unknown to intensive care unit (ICU) for condition of interest (test code = 02477-1) Whether patient resides in a Unknown [facility] care setting (test code = 28973-2) status (test code = Unknown 43957-7) Date and time of symptom onset Unknown (test code = 75751-0) [facility] ALLIANCETACROLIMUS, [id number] 15:57:16FK 506<3ng/mL04/30/2022 9:57 AM CSTUTMB LABORATORY SERVICESTarget/Therapeutic Range KIDNEY ? Early (<3 mo) ? ? 8-12 ? Late ?(>3 mo) ? ? 5-10 ?SPK / PAULA ? Early (<3 mo) ? ? 10- 15 ? Mid ? (3-6 mo) ? ?8-10 ? Late ?(>6 mo) ? ? 5-8 ?LIVER ?Early (<3 mo) ?HCV: ? 5-7 ?Tumor: ? ? ? 5-7 ?Autoimmune: ?8-10 ? Late (>3 mo) ? ? ?~5 ?HEART ? Early (<6 mo) ? ? 12-15 ? Late ?(>6 mo) ? ? 8-12 ?LUNG ? Early (<6 mo) ? ? 12-15 ? Mid ? (7-12 mo) ? 10-15 ? Late ?(>12 mo) ? ?8-10 Method by:?[employer], Floor Molder [id number] MET[facility]OLIC PANEL (NA, K, CL, CO2, GLUCOSE, BUN, CREATININE, CA)2022-04-30 12:20:47 Test Item Value Reference Range Interpretation Comments NA (test code = 135 mmol/L 135-145 7620920933) K (test code = 3.9 mmol/L 3.5-5.0 4392157296) CL (test code = 107 mmol/L 98-108 7383927380) CO2 TOTAL (test code = 23 mmol/L 23-31 3159817509) AGAP (test code = 2-16 3364272790) BUN (test code = 9 mg/dL 7-23 4294125089) GLUCOSE (test code = 89 mg/dL 70-110 8470495972) CREATININE (test code = 1.11 mg/dL 0.60-1.25 2599164549) CALCIUM (test code = 8.5 mg/dL 8.6-10.6 L 6260594914) eGFR (test code = mL/min/1.73m2 8812673046) DESMOND (test code = DESMOND) Association of Glomerular Filtration Rate (GFR) and Staging of Kidney Disease* + --+ --+ ------+| GFR (mL/min/1.73 m2) ?| With Kidney Damage ?| ?Without Kidney Damage+ --------+ --------+ +| ?>90 ?| ?Stage one ?| ? Normal ?+ ---+ ---+ -------+| ?60-89 ?| ?Stage two ?| ? Decreased GFR ? + --+ --+ ------+| ?30-59 ?| ?Stage three ?| ? Stage three ? + --+ --+ ------+| ?15-29 ?| ?Stage four ? | ? Stage four ?+ ---+ ---+ -------+| ?<15 (or dialysis) ? ?| ?Stage five ? | ? Stage five ?+ ---+ ---+ -------+ *Each stage assumes the associated GFR level has been in effect for at least three months. ?Stages 1 to 5, with or without kidney disease, indicate chronic kidney disease. Notes: Determination of stages one and two (with eGFR >59mL/min/1.73 m2) requires estimation of kidney damage for at least three months as defined by structural or functional abnormalities of the kidney, manifested by either:Pathological abnormalities or Markers of kidney damage (including abnormalities in the composition of the blood or urine or abnormalities in imaging tests). Lab Interpretation Abnormal (test code = 87604-7) [facility] 12:20:47 Test Item Value Reference Range Interpretation Comments MAGNESIUM (test code = 5345451787) 1.8 mg/dL 1.7-2.4 Lab Interpretation (test code = Normal 11137-0) [facility] CenterHEPATIC FUNCTION PANEL (80085) (ALB,T.PRO,BILI T,BU/BC,ALT,AST,ALK PHOS)2022-04-30 12:20:47 Test Item Value Reference Range Interpretation Comments TOTAL BILI (test code = 8587308827) 3.5 mg/dL 0.1-1.1 H BILI UNCON (test code = 9321934496) 1.0 mg/dL 0.1-1.1 BILI CONJ (test code = 3277989544) 1.2 mg/dL 0.0-0.3 H T PROTEIN (test code = 9527542656) 6.8 g/dL 6.3-8.2 ALBUMIN (test code = 7739010425) 3.4 g/dL 3.5-5.0 L ALK PHOS (test code = 5723170798) 361 U/L 34-122 H ALTv (test code = 1742-6) 419 U/L 5-50 H AST(SGOT) (test code = 1585853742) 556 U/L 13-40 H Lab Interpretation (test code = Abnormal 96964-6) [facility] CenterCBC WITH [id number] 11:18:43 Test Item Value Reference Range Interpretation Comments WBC (test code = See_Comment [Automated 4990-2) message] The sy stem which generated this result transmitted reference range : 4.20 - 10.70 10*3/?L. The reference range was not used to interpret this result as normal/abnormal . RBC (test code = See_Comment L [Automated 789-8) message] The sy stem which generated this result transmitted reference range : 4.26 - 5.52 10*6/?L. The reference range was not used to interpret this result as normal/abnormal . HGB (test code = 11.9 g/dL 12.2-16.4 L 718-7) HCT (test code = 33.8 % 38.4-49.3 L 4544-3) MCV (test code = 89.9 fL 81.7-95.6 787-2) MCH (test code = 31.6 pg 26.1-32.7 785-6) MCHC (test code = 35.2 g/dL 31.2-35.0 H 786-4) RDW-SD (test code = 45.6 fL 38.5-51.6 69456-5) RDW-CV (test code = 14.1 % 12.1-15.4 788-0) PLT (test code = See_Comment [Automated 777-3) message] The sy stem which generated this result transmitted reference range : 150 - 328 10*3/ ?L. The reference r ca was not used to interpret this result as normal/abnormal . MPV (test code = 9.8 fL 9.8-13.0 79428-7) NRBC/100 WBC (test See_Comment [Automat ed code = 7993855818) message] The system which generated this result transmitted reference range : 0.0 - 10.0 /100 WBCs. The refer ence range was not u sed to interpret th is result as normal/abnormal . NRBC x10^3 (test code See_Comment [Auto mated = 7878974590) message] The s ystem which generated this result transmitted reference range : 10*3/?L. The reference range was not used to interpret this result as normal/abnormal . GRAN MAT (NEUT) % 67.3 % (test code = 770-8) IMM GRAN % (test code 0.40 % = 7281857139) LYMPH % (test code = 19.9 % 736-9) MONO % (test code = 6.3 % 5905-5) EOS % (test code = 5.5 % 713-8) BASO % (test code = 0.6 % 706-2) GRAN MAT x10^3(ANC) 3.56 10*3/uL 1.99-6.95 (test code = 1889678735) IMM GRAN x10^3 (test 0.00-0.06 code = 0960684574) LYMPH x10^3 (test code 1.05 10*3/uL 1.09-3.23 L = 731-0) MONO x10^3 (test code 0.33 10*3/uL 0.36-1.02 L = 742-7) EOS x10^3 (test code = 0.29 10*3/uL 0.06-0.53 711-2) BASO x10^3 (test code 0.03 10*3/uL 0.01-0.09 = 704-7) Lab Interpretation Abnormal (test code = 00275-2) [facility] Metabolic Panel (NA, K, CL, CO2, GLUCOSE, BUN, CREATININE, CA)2022-04-29 12:38:58 Test Item Value Reference Range Interpretation Comments NA (test code = 136 mmol/L 135-145 8557498704) K (test code = 3.9 mmol/L 3.5-5.0 1708214233) CL (test code = 105 mmol/L 98-108 4700584998) CO2 TOTAL (test code = 27 mmol/L 23-31 8816943671) AGAP (test code = 2-16 9845921785) BUN (test code = 11 mg/dL 7-23 1789282761) GLUCOSE (test code = 95 mg/dL 70-110 4315839402) CREATININE (test code = 1.12 mg/dL 0.60-1.25 9565574897) CALCIUM (test code = 8.2 mg/dL 8.6-10.6 L 5934973584) eGFR (test code = mL/min/1.73m2 3797885705) DESMOND (test code = DESMOND) Association of Glomerular Filtration Rate (GFR) and Staging of Kidney Disease* + --+ --+ ------+| GFR (mL/min/1.73 m2) ?| With Kidney Damage ?| ?Without Kidney Damage+ --------+ --------+ +| ?>90 ?| ?Stage one ?| ? Normal ?+ ---+ ---+ -------+| ?60-89 ?| ?Stage two ?| ? Decreased GFR ? + --+ --+ ------+| ?30-59 ?| ?Stage three ?| ? Stage three ? + --+ --+ ------+| ?15-29 ?| ?Stage four ? | ? Stage four ?+ ---+ ---+ -------+| ?<15 (or dialysis) ? ?| ?Stage five ? | ? Stage five ?+ ---+ ---+ -------+ *Each stage assumes the associated GFR level has been in effect for at least three months. ?Stages 1 to 5, with or without kidney disease, indicate chronic kidney disease. Notes: Determination of stages one and two (with eGFR >59mL/min/1.73 m2) requires estimation of kidney damage for at least three months as defined by structural or functional abnormalities of the kidney, manifested by either:Pathological abnormalities or Markers of kidney damage (including abnormalities in the composition of the blood or urine or abnormalities in imaging tests). Lab Interpretation Abnormal (test code = 51314-0) [facility] CenterMagnesium [id number] 12:38:58 Test Item Value Reference Range Interpretation Comments MAGNESIUM (test code = 2909874451) 1.9 mg/dL 1.7-2.4 Lab Interpretation (test code = Normal 55902-0) [facility] Pqycocpdhdyl8634-11-19 12:05:15 Test Item Value Reference Range Interpretation Comments WBC (test code = See_Comment [Automated 8870-2) message] The sy stem which generated this result transmitted reference range : 4.20 - 10.70 10*3/?L. The reference range was not used to interpret this result as normal/abnormal . RBC (test code = See_Comment L [Automated 130-8) message] The sy stem which generated this result transmitted reference range : 4.26 - 5.52 10*6/?L. The reference range was not used to interpret this result as normal/abnormal . HGB (test code = 11.9 g/dL 12.2-16.4 L 718-7) HCT (test code = 33.3 % 38.4-49.3 L 4544-3) MCV (test code = 93.3 fL 81.7-95.6 787-2) MCH (test code = 33.3 pg 26.1-32.7 H 785-6) MCHC (test code = 35.7 g/dL 31.2-35.0 H 786-4) RDW-SD (test code = 46.5 fL 38.5-51.6 82516-1) RDW-CV (test code = 14.0 % 12.1-15.4 788-0) PLT (test code = See_Comment [Automated 777-3) message] The sy stem which generated this result transmitted reference range : 150 - 328 10*3/ ?L. The reference r ca was not used to interpret this result as normal/abnormal . MPV (test code = 9.2 fL 9.8-13.0 L 69207-7) NRBC/100 WBC (test See_Comment [Automat ed code = 2938814033) message] The system which generated this result transmitted reference range : 0.0 - 10.0 /100 WBCs. The refer ence range was not u sed to interpret th is result as normal/abnormal . NRBC x10^3 (test code See_Comment [Auto mated = 3626041838) message] The s ystem which generated this result transmitted reference range : 10*3/?L. The reference range was not used to interpret this result as normal/abnormal . GRAN MAT (NEUT) % 69.9 % (test code = 770-8) IMM GRAN % (test code 0.20 % = 0787974445) LYMPH % (test code = 19.8 % 736-9) MONO % (test code = 6.1 % 5905-5) EOS % (test code = 3.3 % 713-8) BASO % (test code = 0.7 % 706-2) GRAN MAT x10^3(ANC) 3.21 10*3/uL 1.99-6.95 (test code = 5705238328) IMM GRAN x10^3 (test 0.00-0.06 code = 2288403597) LYMPH x10^3 (test code 0.91 10*3/uL 1.09-3.23 L = 731-0) MONO x10^3 (test code 0.28 10*3/uL 0.36-1.02 L = 742-7) EOS x10^3 (test code = 0.15 10*3/uL 0.06-0.53 711-2) BASO x10^3 (test code 0.03 10*3/uL 0.01-0.09 = 704-7) Lab Interpretation Abnormal (test code = 11106-9) [facility] CenterCoronavirus, CoVID-19, [id number] 02:22:57 Test Item Value Reference Interpretation Comments Range COVID-19 Not Detected Not Detected INTERPRETATION: (SARS-COV-2) (test No detect able code = 55380-4) levels of SARS-CoV-2 Coronavirus (COVID-19) were present in this patient's sampl e by this test. A not detected result does not exclude the possibility of active infectio n with this virus due to other factors that ma y affect the results such as a poorly collected sample, viral titers below th e limit of detection of th e assay, and the infrequent possibility of inhibitors in the sample. Thi s result should b e interpreted in conjunction wit h clinical, radiographic, and other laboratory findings and should not be used as the kelsy e indicator of active infectio n with SARS-CoV-2 Coronavirus (COVID-19). DESMOND (test code = COMMENT: This DESMOND) CepPeerApp Xpert Xpress SARS-CoV-2 real-time PCR test was developed, and its performance characteristics determined by the [facility] molecular diagnostic Laboratory and is acceptable for patient testing. It has been approved for patient testing by the FDA under the Emergency Use Authorization pathway. This laboratory is certified under federal CLIA regulations to perform this type of high complexity testing. Lab Interpretation Normal (test code = 10637-8) [facility], [facility]-19, LYP5212-10-26 02:22:57 Test Item Value Reference Interpretation Comments Range COVID-19 Not Detected Not Detected INTERPRETATION: (SARS-COV-2) (test No detect able code = 11805-5) levels of SARS-CoV-2 Coronavirus (COVID-19) were present in this patient's sampl e by this test. A not detected result does not exclude the possibility of active infectio n with this virus due to other factors that ma y affect the results such as a poorly collected sample, viral titers below th e limit of detection of th e assay, and the infrequent possibility of inhibitors in the sample. Thi s result should b e interpreted in conjunction wit h clinical, radiographic, and other laboratory findings and should not be used as the kelsy e indicator of active infectio n with SARS-CoV-2 Coronavirus (COVID-19). DESMOND (test code = COMMENT: This DESMOND) CepPeerApp Xpert Xpress SARS-CoV-2 real-time PCR test was developed, and its performance characteristics determined by the [facility] molecular diagnostic Laboratory and is acceptable for patient testing. It has been approved for patient testing by the FDA under the Emergency Use Authorization pathway. This laboratory is certified under federal CLIA regulations to perform this type of high complexity testing. Lab Interpretation Normal (test code = 94533-2) [facility]-CoV-2 RNA Resp Ql TIA+eyfwl6346-87-61 02:22:57 Test Item Value Reference Range Interpretation Comments Hospitalized? (test No code = 74699-8) ICU? (test code = No 13331-0) Symptomatic as defined No by CDC? (test code = 30617-6) Employed in No Healthcare? (test code = 32970-0) Resident in a No congregate care setting (including nursing homes, residential care for people with intellectual and developmental disabilities, psychiatric treatment facilities, group homes, board and care homes, homeless [place] health [place] facility, foster care or other): (test code = 41045-0) SARS-CoV-2 RNA Resp Ql NOT DETECTED Not Detected INTER PRETATION: No TIA+probe (test code = detec table levels 68697-5) of SARS-CoV-2 Coronavirus (COVID-19) were present in this patient's sampl e by this test. A no t detected result does not exclud e the possibility of active infectio n with this virus due to other factor s that may affect the results such as a poorly collecte d sample, viral titers below th e limit of detect ion of the assay, a nd the infrequent possibility of inhibitors in t he sample. This re sult should be interpreted in conjunction wit h clinical, radiographic, a nd other laborator y findings and sh ould not be used as the sole indicator of active infectio n with SARS-CoV-2 Coronavirus (COVID-19). COMMENT: This Cepheid Xpert Xpress SARS-CoV-2 real-time PCR test was developed, and its performance characteristics determined by the [facility] molecular diagnostic Laboratory and is acceptablefor patient testing. It has been approved for patient testing by the FDA under the Emergency Use Auth orization pathway. 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 MeasurementsIntervals [place] Rate: 68 P: 53PR: 169 QRS: -55QRSD: 106 T: 4QT: 410 QTc: 428 Interpretive StatementsSINUS RHYTHMLEFT AXIS DEVIATION [QRS AXIS < -30]PATTERN CONSISTENT WITH PULMONARY DISEASEElectronically Signed On 04-28-2022 13:22:22 BRAILLE TRANSCRIBER by Huan Monte M.D.[place] [address] Lead [id number] 16:44:5412 LEAD EKG FOR [facility] Test Date: 9248-89-35Eac Name: [facility] Department: 5520Patient ID: [id number] Room: OTender: M [place] Burnisher: [id number]: 1970 Requested By: JUAN PERALES Order Number: [id number] Reading MD: Huan Monte M.D. MeasurementsIntervals [place] Rate: 68 P: 53PR: 169 QRS: -55QRSD: 106 T: 4QT: 410 QTc: 428 Interpretive StatementsSINUS RHYTHM LEFT AXIS DEVIATION [QRS AXIS < -30]PATTERN CONSISTENT WITH PULMONARY DISEASEElectronically Signed On 04-28-2022 13:22:22 BRAILLE TRANSCRIBER by Huan Monte M.D.[facility] The miqi.cnEthanol Qghzp9005-08-77 01:55:00 Test Item Value Reference Range Interpretation Comments Ethanol (test code 133 mg/dL The pharm acological = ETOH) response to blo od alcohol levels mayvary from individual to i ndividual. The fatal janett ntrationhas been reported t o be >400mg/dL. UA, Urinalysis Rflx Cult/Pldcp6195-59-00 23:19:00 Test Item Value Reference Range Interpretation Comments Color,Urine (test code = UCOL) Yellow Yellow Clarity,Urine (test code = Clear Clear UCLAR) Ph, Urine (test code = UPH) 5.5 5.0-9.0 N Specific [place],Urine (test 1.010 1.005-1.030 N code = USG) Blood,Urine (test code = UBLD) Negative mg/dL Negative Protein,Urine (test code = Negative mg/dL Negative UPRO) Glucose,Urine (UA) (test code Negative mg/dL Negative = UGLU) Ketones,Urine (test code = Negative mg/dL Negative UKET) Nitrate,Urine (test code = Negative Negative UNIT) Bilirubin,Urine (test code = Negative mg/dL Negative UBIL) Urobilinogen,Urine (test code 0.2 E.U./dL Normal = UURO) Leukocyte Esterase,Urine (test Negative mg/dL Negative code = ULEU) Drug Screen,Xyegi5074-79-98 23:19:00 Test Item Value Reference Range Interpretation Comments PCP Phencyclidine Screen,Urine (test Negative Negative code = PCPU) Amphetamine Screen,Urine (test code Negative Negative = AMPU) Methadone Screen,Urine (test code = Negative Negative METHU) Opiate Screen,Urine (test code = Negative Negative UOPIS) Barbituates Screen,Urine (test code Negative Negative = BARBU) Benzodiazepines Screen,Urine (test Negative Negative code = UBENZS) Cocaine Screen,Urine (test code = Negative Negative UCOCS) Cannabinoid Screen,Urine (test code Negative Negative = UTHCS) Propoxyphene Screen, Urine (test Negative Negative code = UPROP) Ethanol [id number] 22:50:00 Test Item Value Reference Range Interpretation Comments Ethanol (test code 252 mg/dL The pharm acological = ETOH) response to blo od alcohol levels mayvary from individual to i ndividual. The fatal janett ntrationhas been reported t o be >400mg/dL. Coronavirus PCR, COVID19 [id number] 22:50:00 Test Item Value Reference Range Interpretation Comments Coronavirus PCR, For use under Emergency COVID19 Rapid (test Use Authorization (EUA) code = SARSCOV2) only. Coronavirus PCR, Reference Range: COVID19 Rapid (test Negative code = RLLNSUL37.1) SARS-CoV-2 PCR Result: Negative by RT-PCR (test code = SARS-CoV-2 PCR Result:) COVID-19 Status: AsymptomaticComplete Blood Count Auto [id number] 22:50:00 Test Item Value Reference Range Interpretation Comments White Blood Count (test code = 13.7 x10 3/uL 4.4-10.5 H WBCT) Red Blood Count (test code = 4.12 x10 6/uL 4.10-5.70 N RBC) Hemoglobin (test code = HGBT) 13.6 g/dL 13.4-17.4 N Hematocrit (test code = HCTT) 41.4 % 38.7-52.0 N Mean Corpuscular Volume (test 100.50 fL 80.00-100.00 H code = MCV) Mean Corpuscular Hemoglobin 33.0 pg 27.0-32.5 H (test code = MCH) Mean Corpuscular HGB Conc 32.90 g/dL 32.00-37.50 N (test code = MCHC) RDW Coefficient of Variation 13.7 % 11.5-14.5 N (test code = RDWCV) Platelet Count (test code = 283.0 x10 3/uL 140.0-440.0 N PLTT) Mean Platelet Volume (test 9.4 fL code = MPV) Immature Granulocytes % (Auto) 0.4 % 0.0-5.0 N (test code = IMMGRAN%) Neutrophils % (Auto) (test 68.7 % 36.0-70.0 N code = NE%) Lymphocytes % (Auto) (test 23.8 % 12.0-44.0 N code = LY%) Monocytes % (Auto) (test code 5.6 % 0.0-11.0 N = MO%) Eosinophils % (Auto) (test 0.8 % 0.0-7.0 N code = EO%) Basophils % (Auto) (test code 0.7 % 0.0-2.0 N = BA%) Immature Granulocytes # (Auto) 0.06 x10 3/uL (test code = IMMGRAN#) Neutrophils # (Auto) (test 9.4 x10 3/uL 1.6-7.4 H code = NE#) Lymphocytes # (Auto) (test 3.25 x10 3/uL 0.50-4.60 N code = LY#) Monocytes # (Auto) (test code 0.77 x10 3/uL 0.00-1.20 N = MO#) Eosinophils # (Auto) (test 0.11 x10 3/uL 0.00-0.74 N code = EO#) Basophils # (Auto) (test code 0.09 x10 3/uL 0.00-0.21 N = BA#) nRBC Abs (test code = NRBCA) 0 nRBC Pct (test code = NRBCP) 0 % Comprehensive Metabolic [id number] 22:50:00 Test Item Value Reference Range Interpretation Comments SODIUM (test code = NA) 144.0 mmol/L 136.0-145.0 N Potassium,K (test code = K) 4.5 mmol/L 3.0-5.1 N Chloride (test code = CL) 110 mmol/L 98-107 H Carbon Dioxide (test code = CO2) 22 mmol/L 20-31 N Anion Gap (test code = GAP) 12 mmol/L 5-15 N Blood Urea Nitrogen (test code = 17 mg/dL 9-23 N BUN) Creatinine (test code = CREATT) 1.03 mg/dL 0.55-1.02 H Creatinine Clr Calc Pharmacy 85.47 mL/min (test code = CRCLPHA) Estimated GFR ( Yessica > 60 mL/min/1.73m2 (test code = EGFRAA) Estimated GFR (Non Afr Yessica > 60 mL/min/1.73m2 (test code = EGFRNAA) BUN/Creatinine Ratio (test code 17 ratio 10-20 N = BCRATIO) Glucose (test code = GLU) 88 mg/dL 74-106 N Osmolality,Calculated (test code 298.0 = OSMOC) Calcium (test code = CA) 8.4 mg/dL 8.3-10.6 N Bilirubin,Total (test code = 0.4 mg/dL 0.2-1.1 N BILIT) Aspartate Amino Transferase 98 U/L 0-34 H (test code = AST) Alanine Aminotransferase (test 150 U/L 10-49 H code = ALT) Total Protein (test code = TP) 7.5 g/dL 5.7-8.2 N Albumin Level (test code = ALB) 4.6 g/dL 3.2-4.8 N Globulin (test code = GLOB) 2.9 mg/dL 2.3-3.5 N Albumin/Globulin Ratio (test 1.6 ratio 0.8-2.0 N code = AGRATIO) Alkaline Phosphatase (test code 381 U/L 46-116 H = ALP) URINALYSIS WITH [id number] 17:51:00 Test Item Value Reference Range Interpretation Comments COLOR (test code = COLU) YELLOW YELLOW CLARITY (test code = CLA) CLEAR CLEAR GLUCOSE UR (test code = UA GLUCOSE) NEGATIVE NEGATIVE BILI UR (test code = BILE) NEGATIVE NEGATIVE KETONES UR (test code = TRE) NEGATIVE NEGATIVE SP GRAVITY (test code = SPGR) 1.012 1.005-1.030 PH UR (test code = PH) 6.0 4.5-8.0 PROTEIN UR (test code = PU) 1+ NEGATIVE A UROBIL UR (test code = UROQ) 1.0 EU/dL 0.2-1.0 NITRITE UR (test code = NITRITE) NEGATIVE NEGATIVE BLOOD UR (test code = UA BLOOD) TRACE NEGATIVE A LEUK ES UR (test code = LEUK) NEGATIVE NEGATIVE WBC UR (test code = UWBC) 1 /HPF 0-3 RBC UR (test code = URBC) 2 /HPF 0-2 EPITH UR (test code = UEPC) NONE /LPF NONE BACTERIA UR (test code = UBACT) FEW /HPF NONE A CAST UR (test code = CAST) /LPF NONE CRYSTAL UR (test code = CRYU) / LPF NONE MUCUS UR (test code = MUC) / HPF NONE AMORPH UR (test code = NATALIE) FEW / HPF NONE A TRICH UR (test code = UTRICH) /HPF NONE YEAST UR (test code = UY) /HPF NONE SPERM UR (test code = USPERM) /HPF NONE SARS-CoV-2 (COVID-19) RNA [Presence] in Respiratory specimen by TIA with probe [id number] 23:06:21 Test Item Value Reference Range Interpretation Comments SARS-CoV-2 (COVID-19) RNA Not detected [Presence] in Respiratory specimen by TIA with probe detection (test code = 72899-7) Whether patient is employed in a Unknown healthcare setting (test code = 20108-0) Whether the patient has symptoms Unknown related to condition of interest (test code = 37606-1) Whether the patient was Unknown hospitalized for condition of interest (test code = 68324-3) Whether the patient was admitted Unknown to intensive care unit (ICU) for condition of interest (test code = 52469-9) Whether patient resides in a Unknown congregate care setting (test code = 29203-6) status (test code = Unknown 84375-0) Date and time of symptom onset Unknown (test code = 72811-5) [facility] P[facility] 2022-02-27 10:53:07 [facility] : 1970 Sex: MEXAMINATION:CT ABDOMEN AND PELVIS WITH CONTRASTCLINICAL INDICATION:Male, 48 years old with ABDOMINAL PAIN, NAUSEA,VOMITINGTECHNIQUE: Thin section axial post-contrast contiguous images were obtained through the abdomen and pelvis followed by coronal and sagittal multiplanar reformations.All CT scans are performed using radiation dose reduction techniques, when applicable. Technical factors are evaluated and adjusted to ensure appropriate moderation of exposure. Automated dose management technology is applied to adjust the radiation doses to minimize exposure while achieving diagnostic quality images.COMPARISON: N oneFINDINGS:Lower Chest: Visualized lung bases are clear. Heart is normal in size. No pericardial orpleural effusion.Liver: Hepatomegaly is present with diffuse fatty infiltration. No focal lesions. Bile ducts are of normal caliber.Gallbladder: No stones, wall thickening, or pericholecystic fluid.Panc reas: Normal appearance without focal lesion.Spleen: Normal in size and contour.Adrenals: No mass ornodules.Kidneys and ureters: No hydronephrosis. No solid mass. Bladder/Reproductive Organs: Urinary bladder has normal CT appearance. Unremarkable reproductive organsBowel: Colonic diverticulosis is pre sent without evidence of diverticulitis. No bowel obstruction. Normal appendix. Lymph nodes: There are no enlarged abdominopelvic lymph nodes.Peritoneum/Retroperitoneum: No free air, free fluid, or fluid collection. No retroperitoneal mass or hemorrhage. Vascular: Abdominal aorta and inferior vena cava are normal in course and caliber.Bones/Soft Tissues: There is disc space narrowing with posterior disc osteophyte complex at L5-S1. No acute osseous abnormality is identified. There is a supraumbilical hernia mesh in place with no associated fluid collection. Superior to the mesh there are two adjacent ventral hernias, one of which contains fat and the other contains nondilated loop of small bowel (series 2, image 29).IMPRESSION:1. Hernia mesh in place with two ventral hernias seen along the superior aspect of the mesh, one of which contains a nondilated loop of small bowel.2. Hepatomegaly with fatty infiltration.3. Colonic diverticulosis without evidence of acute diverticulitis.Electronically signed by: Joann Beaver MD 02/15/2022 12:13 PM CDT 0273YZZALCOHOL BLOOD (ETOH)2022 11:43:00 Test Item Value Reference Range Interpretation Comments ETOH (test code = ETHANOL HALC) The result is to be used only for medical purposes ALCOHOL (test <3 mg/dL See_Comment [Automated la ssage] code = 56A) The system [employer] generated this result transmit jhonatan reference range : <=10. The refer ence range was not u sed to interpret th is result as normal/abnormal . LIPASE [id number] 10:43:00 Test Item Value Reference Range Interpretation Comments LIPASE (test code = 60A) 56 IU/L 12-53 H [id number] 10:43:00 Test Item Value Reference Range Interpretation Comments AMYLASE (test code = 10A) 109 U/L 30-118 DRUGS OF [id number] 10:31:00 Test Item Value Reference Range Interpretation Comments DRUG SCRN (test code = URINE DRUG HDOA) SCREEN This is an unconfirmed screening result and should not be used for non-medical purposes CANNABINOD (test code NEGATIVE NEGATIVE = 88C) AMPHETAMINE (test code NEGATIVE NEGATIVE = 84A) BENZODIAZP (test code NEGATIVE NEGATIVE = 86A) BARBITURAT (test code NEGATIVE NEGATIVE = 85A) OPIATES (test code = NEGATIVE NEGATIVE 92B) COCAINE (test code = NEGATIVE NEGATIVE 87A) PHENCYCLID (test code NEGATIVE NEGATIVE = 66A) METHADONE (test code = NEGATIVE NEGATIVE 64A) DOAH (test code = DOAH.) URINE DRUGSCREEN Cut-off values are as follows: Cannabinoids 50 ng/mL Cocaine 300 ng/mL Amphetamines 1000 ng/mL Phencyclidine 25 ng/mL Benzodiazepines 200 ng.mL Methadone 300 ng/mL Barbiturates 200 ng/mL Opiates 300 ng/mL COMPREHENSIVE METABOLIC [id number] 10:30:00 Test Item Value Reference Range Interpretation Comments GLUCOSE (test code 103 mg/dL 75-100 H = 06D) SODIUM (test code 138 mmol/L 136-145 = 01A) POTASSIUM (test 4.1 mmol/L 3.6-5.1 code = 01B) CHLORIDE (test 100 mmol/L 98-107 code = 04A) CO2 (test code = 23 mmol/L 20-31 02A) ANION GAP (test 19.0 mmol/L code = ANG) BUN (test code = 6 mg/dL 9-23 L 05D) CREATININE (test 1.0 mg/dL 0.7-1.3 code = 03E) EGFR (test code = eGFR BY EGFR) CKD-EPI CALCULATION IS NOT RECOMMENDED FOR PATIENTS UNDER 18 YEARS OF AGE. BUN/CREA (test 6 12-20 L code = BCR) CALCIUM (test code 8.5 mg/dL 8.3-10.6 = 09D) BILI TOTAL (test 1.5 mg/dL 0.2-1.0 H code = 11A) PROTEIN (test code 7.6 g/dL 5.7-8.2 = 07D) ALBUMIN (test code 4.1 g/dL 3.2-4.8 = 08D) GLOBULIN (test 3.5 g/dL 1.5-3.8 code = GLB) ALB/GLOB (test 1.1 1.0-2.6 code = AGRR) ALK PHOS (test 469 IU/L 46-116 H code = 35A) AST (test code = 443 IU/L See_Comment H [Automated 30A) message] The system which generated this result transmit jhonatan reference range : <=33. The reference range was not used to interpret this result as normal/abnormal . ALT (test code = 195 IU/L 10-49 H 31A) ALCOHOL BLOOD (ETOH)2022-02-22 10:28:00 Test Item Value Reference Range Interpretation Comments ETOH (test code = ETHANOL HALC) The result is to be used only for medical purposes ALCOHOL (test 294 mg/dL See_Comment H [Automated me ssage] code = 56A) The system [employer] generated this result transmit jhonatan reference range : <=10. The refer ence range was not u sed to interpret th is result as normal/abnormal . [id number] 10:27:00 Test Item Value Reference Range Interpretation Comments SALICYLATE (test code = 94B) <3.0 mg/dL 15.0-30.0 L [id number] 10:27:00 Test Item Value Reference Range Interpretation Comments ACETAMINPH (test code = 94M) <0.2 mg/dL 1.2-2.5 L TROPONIN [id number] 10:26:00 Test Item Value Reference Range Interpretation Comments TROPONIN I (test code = A84) 4.52 pg/mL 0.00-45.20 CBC (INCLUDES AUTOMATED DIFFERENTIAL)2022-02-22 10:23:00 Test Item Value Reference Range Interpretation Comments WBC (test code = WBC) 5.3 10\\S\\3/uL 4.5-11.0 RBC (test code = RBC) 4.34 10\\S\\6/uL 4.20-5.60 HGB (test code = HBG) 14.7 g/dL 14.0-18.0 HCT (test code = HCT) 41.2 % 35.0-46.0 MCV (test code = MCV) 94.9 fL 80.0-94.0 H MCH (test code = MCH) 33.9 pg 27.0-31.0 H MCHC (test code = MCHC) 35.7 g/dL 32.0-36.0 RDW (test code = RDW) 15.0 % 11.5-14.5 H PLT (test code = PLT) 73 10\\S\\3/uL 130-400 L MPV (test code = MPV) 10.2 fL 9.4-12.4 NEUTROP # (test code = NE#) 2.4 10\\S\\3/uL 2.0-8.0 LYMPH # (test code = LY#) 2.3 10\\S\\3/uL 1.2-4.0 MONOCYTE # (test code = MO#) 0.5 10\\S\\3/uL 0.0-1.1 EOSINOPH # (test code = EO#) 0.1 10\\S\\3/uL 0.0-0.7 BASOPHIL # (test code = BA#) 0.0 10\\S\\3/uL 0.0-0.3 IG # (test code = IG#) 0.03 10\\S\\3/uL 0.00-0.06 NRBC # (test code = NRBC#) 0.02 10\\S\\3/uL 0.00-0.01 H NEUTROPH % (test code = NE%) 44.8 % 35.0-73.0 LYMPH % (test code = LY%) 42.9 % 20.0-55.0 MONO % (test code = MO%) 9.7 % 2.5-10.0 EOSINOPH % (test code = EO%) 1.3 % 0.0-5.0 BASOPHIL % (test code = BA%) 0.7 % 0.0-2.0 IG % (test code = IG%) 0.6 % 0.0-0.8 NRBC% (test code = NRBC%) 0.4 % 0.0-0.2 H MANDIFF (test code = MDIFF) NO NO RBC MORPH (test code = RBCMOR) NORMAL AST (ASPARATE AMINOTRANSFERASE)2022-02-22 09:53:00 Test Item Value Reference Range Interpretation Comments AST (test code = 329 IU/L See_Comment H [Automated message] The 30A) system which ge nerated this result tra nsmitted reference range : <=33. The reference range was not used to interpr et this result as miguel l/abnormal. ALT (ALANINE AMINOTRANSFERASE)2022-02-22 09:49:00 Test Item Value Reference Range Interpretation Comments ALT (test code = 31A) 155 IU/L 10-49 H ALKALINE [id number] 09:49:00 Test Item Value Reference Range Interpretation Comments ALK PHOS (test code = 35A) 352 IU/L 46-116 H SARS-CoV (RAPID ANTIGEN)2022-02-19 13:00:00 Test Item Value Reference Range Interpretation Comments SARS-CoV (ANTIGEN) NEGATIVE NEGATIVE (test code = COVAG) COVID AG (test This test has been code = COVAGC) marketed under the FDA Emergency Use Authorization (EUA) to meet challenges of the COVID-19 pandemic. The validation standards normally enforced by the FDA and the [employer] [place] ([employer]) are more stringent than those required for this test. Therefore, the result should be interpreted with caution and close attention to other clinical and epidemiological data Complete Blood Count Auto [id number] 21:57:00 Test Item Value Reference Range Interpretation Comments White Blood Count (test code = 8.2 x10 3/uL 4.4-10.5 N WBCT) Red Blood Count (test code = 4.22 x10 6/uL 4.10-5.70 N RBC) Hemoglobin (test code = HGBT) 14.3 g/dL 13.4-17.4 N Hematocrit (test code = HCTT) 40.7 % 38.7-52.0 N Mean Corpuscular Volume (test 96.40 fL 80.00-100.00 N code = MCV) Mean Corpuscular Hemoglobin 33.9 pg 27.0-32.5 H (test code = MCH) Mean Corpuscular HGB Conc 35.10 g/dL 32.00-37.50 N (test code = MCHC) RDW Coefficient of Variation 13.2 % 11.5-14.5 N (test code = RDWCV) Platelet Count (test code = 442.0 x10 3/uL 140.0-440.0 H PLTT) Mean Platelet Volume (test 9.0 fL code = MPV) Immature Granulocytes % (Auto) 0.7 % 0.0-5.0 N (test code = IMMGRAN%) Neutrophils % (Auto) (test 62.1 % 36.0-70.0 N code = NE%) Lymphocytes % (Auto) (test 27.3 % 12.0-44.0 N code = LY%) Monocytes % (Auto) (test code 7.1 % 0.0-11.0 N = MO%) Eosinophils % (Auto) (test 1.7 % 0.0-7.0 N code = EO%) Basophils % (Auto) (test code 1.1 % 0.0-2.0 N = BA%) Immature Granulocytes # (Auto) 0.06 x10 3/uL (test code = IMMGRAN#) Neutrophils # (Auto) (test 5.1 x10 3/uL 1.6-7.4 N code = NE#) Lymphocytes # (Auto) (test 2.24 x10 3/uL 0.50-4.60 N code = LY#) Monocytes # (Auto) (test code 0.58 x10 3/uL 0.00-1.20 N = MO#) Eosinophils # (Auto) (test 0.14 x10 3/uL 0.00-0.74 N code = EO#) Basophils # (Auto) (test code 0.09 x10 3/uL 0.00-0.21 N = BA#) nRBC Abs (test code = NRBCA) 0 nRBC Pct (test code = NRBCP) 0 % Comprehensive Metabolic [id number] 21:57:00 Test Item Value Reference Range Interpretation Comments SODIUM (test code = NA) 142.0 mmol/L 136.0-145.0 N Potassium,K (test code = K) 4.5 mmol/L 3.0-5.1 N Chloride (test code = CL) 106 mmol/L 98-107 N Carbon Dioxide (test code = CO2) 21 mmol/L 20-31 N Anion Gap (test code = GAP) 15 mmol/L 5-15 N Blood Urea Nitrogen (test code = 8 mg/dL 9-23 L BUN) Creatinine (test code = CREATT) 0.98 mg/dL 0.55-1.02 N Creatinine Clr Calc Pharmacy 90.83 mL/min (test code = CRCLPHA) Estimated GFR ( Yessica > 60 mL/min/1.73m2 (test code = EGFRAA) Estimated GFR (Non Afr Yessica > 60 mL/min/1.73m2 (test code = EGFRNAA) BUN/Creatinine Ratio (test code 8 ratio 10-20 L = BCRATIO) Glucose (test code = GLU) 97 mg/dL 74-106 N Osmolality,Calculated (test code 291.8 = OSMOC) Calcium (test code = CA) 8.9 mg/dL 8.3-10.6 N Bilirubin,Total (test code = 0.7 mg/dL 0.2-1.1 N BILIT) Aspartate Amino Transferase 104 U/L 0-34 H (test code = AST) Alanine Aminotransferase (test 106 U/L 10-49 H code = ALT) Total Protein (test code = TP) 6.9 g/dL 5.7-8.2 N Albumin Level (test code = ALB) 4.1 g/dL 3.2-4.8 N Globulin (test code = GLOB) 2.8 mg/dL 2.3-3.5 N Albumin/Globulin Ratio (test 1.5 ratio 0.8-2.0 N code = AGRATIO) Alkaline Phosphatase (test code 269 U/L 46-116 H = ALP) [id number] 21:57:00 Test Item Value Reference Range Interpretation Comments Lipase (test code = LIP) 53 U/L 12-53 N SARS-CoV-2 (COVID-19) RNA [Presence] in Respiratory specimen by TIA with probe [id number] 13:11:59 Test Item Value Reference Range Interpretation Comments SARS-CoV-2 (COVID-19) RNA Not detected [Presence] in Respiratory specimen by TIA with probe detection (test code = 20327-7) Whether patient is employed in a Unknown healthcare setting (test code = 07848-2) Whether the patient has symptoms Unknown related to condition of interest (test code = 94738-9) Whether the patient was Unknown hospitalized for condition of interest (test code = 48864-6) Whether the patient was admitted Unknown to intensive care unit (ICU) for condition of interest (test code = 86181-0) Whether patient resides in a Unknown congregate care setting (test code = 06271-3) status (test code = Unknown 14882-6) Date and time of symptom onset Unknown (test code = 12853-2) [facility] myocardial [id number] 11:54:15 Test Item Value Reference Range Interpretation Comments Target HR (test 171.00 bpm code = 7519853177) Resting HR (test 52 BPM code = 3562471588) Resting BP (test 116/87 mmHg code = 3416200747) Post Peak HR (test 81 bpm code = 2239860239) Percent HR (test 47.37 % code = 2977448222) Post Peak BP (test 118/80 mmHg code = 6194808666) Radiology Study observation (narrative) (test code = 06411-5) DESMOND (test code = 1. Normal myocardial DESMOND) perfusion study without any ischemia or scar.2. Normal hemodynamic and electrocardiographic regadenoson stress test.3. Gated perfusion imaging shows normal global left ventricular systolic function with an ejection fraction of 65%.ECGRhythm-sinus. Resting EKG-normal sinus rhythm. Left axis deviation, late QRS transition. Interpretation: Normal electrocardiographic regadenoson stress test.Stress Protocol/Tolerance FindingsThe patient was infused with 5 ml of regadenoson intravenous over 10 seconds for a total dose of 0.4 mg, followed by a 5 ml saline flush intravenous over 10 seconds. The stress radiotracer followed the intravenous saline flush over 10 seconds.. Indication for pharmacological testing is weakness. Stress symptoms: none.The stress study was stopped due to protocol complete. The blood pressure response was normal. Normal HR response.Stress Ischemic ChangesArrhythmias: no arrhythmia noted. No ischemic ST-T changes occurred.Isotope AdministrationThe isotope used for nuclear imaging was technetium tetrofosmin. A one day protocol was followed. Resting images were obtained after intravenous injection of 9.5 millicuries of Tc 99m tetrofosmin. The patient underwent stress with intravenous regadenoson injection according to protocol. Stress images were obtained after intravenous injection of 30.0 mci of Tc 99m tetrofosmin, injected at peak stress. The resting administration time was at 12:21 BRAILLE TRANSCRIBER on 08/22/2021. The stress administration time was at 10:55 BRAILLE TRANSCRIBER on 08/23/2021.Myocardial Perfusion- SPECT images are normal. - Perfusion evaluation method of the left ventricle is visual and quantitative.Imaging Findings- The overall study quality is good. - There are no perfusion defects. - The study is normal. - This study result indicates a low risk of cardiac , or nonfatal infarction, over the ensuing year.Ventricles- The images were gated. - Ejection Fraction is 65%- There is normal wall motion with no evidence of ischemia. -The left ventricle systolic function is normal. - The left ventricle myocardial tissue has normal wall thickness. [facility] myocardial [id number] 11:54:15 Test Item Value Reference Range Interpretation Comments Target HR (test 171.00 bpm code = 0671837951) Resting HR (test 52 BPM code = 1884243772) Resting BP (test 116/87 mmHg code = 0094341398) Post Peak HR (test 81 bpm code = 8889679465) Percent HR (test 47.37 % code = 2052178174) Post Peak BP (test 118/80 mmHg code = 4627294685) Radiology Study observation (narrative) (test code = 19184-5) DESMOND (test code = 1. Normal myocardial DESMOND) perfusion study without any ischemia or scar.2. Normal hemodynamic and electrocardiographic regadenoson stress test.3. Gated perfusion imaging shows normal global left ventricular systolic function with an ejection fraction of 65%.ECGRhythm-sinus. Resting EKG-normal sinus rhythm. Left axis deviation, late QRS transition. Interpretation: Normal electrocardiographic regadenoson stress test.Stress Protocol/Tolerance FindingsThe patient was infused with 5 ml of regadenoson intravenous over 10 seconds for a total dose of 0.4 mg, followed by a 5 ml saline flush intravenous over 10 seconds. The stress radiotracer followed the intravenous saline flush over 10 seconds.. Indication for pharmacological testing is weakness. Stress symptoms: none.The stress study was stopped due to protocol complete. The blood pressure response was normal. Normal HR response.Stress Ischemic ChangesArrhythmias: no arrhythmia noted. No ischemic ST-T changes occurred.Isotope AdministrationThe isotope used for nuclear imaging was technetium tetrofosmin. A one day protocol was followed. Resting images were obtained after intravenous injection of 9.5 millicuries of Tc 99m tetrofosmin. The patient underwent stress with intravenous regadenoson injection according to protocol. Stress images were obtained after intravenous injection of 30.0 mci of Tc 99m tetrofosmin, injected at peak stress. The resting administration time was at 12:21 BRAILLE TRANSCRIBER on 08/22/2021. The stress administration time was at 10:55 BRAILLE TRANSCRIBER on 08/23/2021.Myocardial Perfusion- SPECT images are normal. - Perfusion evaluation method of the left ventricle is visual and quantitative.Imaging Findings- The overall study quality is good. - There are no perfusion defects. - The study is normal. - This study result indicates a low risk of cardiac , or nonfatal infarction, over the ensuing year.Ventricles- The images were gated. - Ejection Fraction is 65%- There is normal wall motion with no evidence of ischemia. -The left ventricle systolic function is normal. - The left ventricle myocardial tissue has normal wall thickness. [facility] stress [id number] 17:39:44 Test Item Value Reference Range Interpretation Comments Resting HR (test code 52 = 7711823891) Resting BP (test code 116&87 = 5318942863) Peak MET Achieved 1.0 (test code = 3023627037) Protocol Name (test Regadenoson code = 2072822209) Time in Exercise 00:01:00 Phase (test code = 8451724410) Max Systolic BP (test 118 code = 4292636580) Max Diastolic BP 80 (test code = 9289998747) Max Heart Rate (test 81 code = 2439075250) Max Predicted Heart 171 Rate (test code = 9904364914) Target HR Formula (220 - Age)*85% (test code = 5083181023) Test Indication (test ANGINA code = 1347202462) ECG Interp Before EX Normal (test code = 4687036446) ECG Interp During Ex none (test code = 0042642636) Ex Summary Comment Normal stress test (test code = 4012729893) Chest Pain Statement none (test code = 9763812214) Overall HR Response appropriate to Exercise (test code = 6871574384) Overall BP Response normal resting BP - To Exercise (test appropriate response code = 8188531672) Stress Test Waveform interpreted in Impression (test code report associated with = 7123727510) image study. No interpretation is provided as part of this Stress ECG report.--Electronically Signed By Jazzmine Wells MD ([id number]), greeting card editor Travis Livingston ([id number]) on 08/23/2021 11:39:41 AM Target HR (test code 171.00 bpm = 2151899252) [facility] stress [id number] 17:39:44 Test Item Value Reference Range Interpretation Comments Resting HR (test code 52 = 9867345984) Resting BP (test code 116&87 = 7557442278) Peak MET Achieved 1.0 (test code = 6773201517) Protocol Name (test Regadenoson code = 4924334355) Time in Exercise 00:01:00 Phase (test code = 5526689975) Max Systolic BP (test 118 code = 1006884087) Max Diastolic BP 80 (test code = 2617141167) Max Heart Rate (test 81 code = 6447612768) Max Predicted Heart 171 Rate (test code = 2764310766) Target HR Formula (220 - Age)*85% (test code = 2640678893) Test Indication (test ANGINA code = 8259910174) ECG Interp Before EX Normal (test code = 6538064845) ECG Interp During Ex none (test code = 2148755790) Ex Summary Comment Normal stress test (test code = 9940011971) Chest Pain Statement none (test code = 0927592659) Overall HR Response appropriate to Exercise (test code = 8199716761) Overall BP Response normal resting BP - To Exercise (test appropriate response code = 1098598603) Stress Test Waveform interpreted in Impression (test code report associated with = 1085624081) image study. No interpretation is provided as part of this Stress ECG report.--Electronically Signed By Jazzmine Wells MD ([id number]), greeting card editor Travis Livingston ([id number]) on 08/23/2021 11:39:41 AM Target HR (test code 171.00 bpm = 6939235265) [facility] (w Contrast, Strain and 3D if needed)2021-08-23 17:12:22 Test Item Value Reference Range Interpretation Comments Ao Root Diameter 3.01 cm (test code = 2894160677) AoV Area, Vmax (test 2.12 cm2 code = 9727478581) AoV Area, VTI (test 2.32 cm2 code = 2022619500) AoV Mean PG (test 4.48 mmHg code = 7779446098) AoV Peak PG (test 9.52 mmHg code = 1306009974) AoV Vmax (test code 1.54 m/s = 5314456052) AoV VTI (test code = 0.29 m 1775826462) IVS,d (test code = 0.94 cm 1261594356) IVS/LVPW,2D (test 0.91 code = 0753952911) Left Atrium 4.19 cm Dimension Anterior (test code = 7697162426) LV,d (test code = 5.14 cm 9145854389) LV EF,2D (test code 85.41 % = 3676004894) LV,s (test code = 2.73 cm 9266728059) LVOT area (test code 2.86 cm2 = 7922864587) LVOT Diam,S (test 1.91 cm code = 0004421453) LVOT Vmax (test code 1.14 m/s = 0693356335) LVOT VTI (test code 0.24 m = 7218347085) LVPWD,d (test code = 1.28 cm 6741181732) PV Pk Grad (test 4.40 mmHg code = 9671777055) PV VMAX (test code = 1.05 m/s 0536596234) RVOT Vmax (test code 0.46 m/s = 4900029529) TR Vpeak (test code 1.86 mm/s = 4364319652) MV E A ratio (test 1.03 code = 2834573922) TR pk grad (test 8.51 mmHg code = 7880672677) E wave decelartion 195.45 msec time (test code = 1004184150) MV Peak A Rainer (test 0.74 m/s code = 1846475310) MV valve area p 1/2 3.43 cm2 method (test code = 9789394208) MV Peak E Rainer (test 0.81 m/s code = 5581131050) MV stenosis pressure 64.09 ms 1/2 time (test code = 5921508071) LVOT stroke volume 0.69 cm3 (test code = 9777565435) AV LVOT peak 5.16 mmHg gradient (test code = 8109996091) Ascending aorta 3.35 cm (test code = 1317876742) Ao Root Diameter 3.01 cm (test code = 0824565925) MV mean gradient 1.01 mmHg (test code = 3644035592) LV SYS VOL (test 23.51 ml code = 6388578113) LV LUQUE VOL (test 110.06 ml code = 0505645675) LA area s A4C (test 24.60 cm2 code = 6733877239) LV SV Teich 2D (test 86.56 ml code = 2193248537) LV Vol s Teich PSAX 23.51 ml (test code = 0197653635) MR peak grad (test 2.83 mmHg code = 2029617485) MV Vmax (test code = 0.90 m 3269873553) MV VTI Tips (test 0.28 m code = 7744868620) RVOT pk grad (test 0.85 mmHg code = 7535772132) AoV Vmn (test code = 0.99 3479719105) LV FS Teich 2D (test 47.35 code = 6116979831) MV AE ratio (test 0.97 code = 7319126007) LV FS Cube 2D (test 47.35 code = 8972021790) LVOT Vmn (test code 0.81 = 4858808099) Aov area Vmn (test 2.37 cm2 code = 0813208962) LVOT mean grad (test 2.89 mmHg code = 9032112629) MAX Pred HR (test 170.51 code = 2845552397) 85 of MPHR (test 144.93 code = 9681485108) Calc MPHR (test code 170.51 bpm = 4814037623) LV SV Cube 2D (test 97.34 ml code = 2782645725) LV vol d cube 2D 113.97 ml (test code = 1337129643) LV vol s cube 2D 16.63 ml (test code = 3703943004) MV Decel slope (test 4.12 m/s2 code = 1684104852) Pred Exer Dur R1 10.32 (test code = 2492258258) Pred METS R1 (test 10.58 code = 0163027048) LA Vol MOD A4C (test 67.79 ml code = 0850904108) Velocity Ratio 0.74 m/s (V1/V2) (test code = 4689) EF (test code = 78.64 % 2604780322) E/A ratio (test code 1.09 = 3876350897) LVOT VTI (CM) (test 24.00 cm code = 1110075579) DESMOND (test code = Left Ventricle: The DESMOND) left ventricular chamber size is normal. Left ventricular systolic function is normal. Left Ventricular ejection fraction is 55 - 60%. Normal left ventricular wall thickness and regional wall motion. Right Ventricle: Normal right ventricular size, wall thickness and global function. Left Atrium: LA size is mildly dilated. Right Atrium: The right atrium is normal. Mitral Valve: The mitral valve appears normal. Trace mitral valve regurgitation. No evidence of mitral valve stenosis. Tricuspid Valve: The tricuspid valve appears normal. Trace tricuspid valve regurgitation. No evidence of tricuspid valve stenosis. Left VentricleThe left ventricular chamber size is normal. Left ventricular systolic function is normal. Left Ventricular ejection fraction is 55 - 60%. Normal left ventricular wall thickness and regional wall motion.Right VentricleNormal right ventricular size, wall thickness and global function.Left AtriumLA size is mildly dilated.Right AtriumThe right atrium is normal.IVC/SVCA normal flow pattern is recorded . The inferior vena cava and the hepatic vein show a normal flow pattern.Mitral ValveThe mitral valve appears normal. Trace mitral valve regurgitation. No evidence of mitral valve stenosis.Tricuspid ValveThe tricuspid valve appears normal. Trace tricuspid valve regurgitation. No evidence of tricuspid valve stenosis.Aortic ValveThe aortic valve appears trileaflet and to open well. No evidence of significant aortic regurgitation. No evidence of aortic valve stenosis.Pulmonic ValveThe pulmonic valve appears normal. No evidence of significant pulmonary valve regurgitation. No evidence of pulmonary valve stenosis.PericardiumNo pericardial effusion seen.Pulmonary ArteryThe pulmonary artery appears normal.DiastologySpectral Doppler shows reduced, appropriate for age pattern of LV diastolic filling.AortaAortic root is normal.Study Quality All standard echocardiographic views were obtained. Study quality is adequate. [facility] (w Contrast, Strain and 3D if needed)2021-08-23 17:12:22 Test Item Value Reference Range Interpretation Comments Ao Root Diameter 3.01 cm (test code = 7060883517) AoV Area, Vmax (test 2.12 cm2 code = 6996545210) AoV Area, VTI (test 2.32 cm2 code = 9101490086) AoV Mean PG (test 4.48 mmHg code = 1511106514) AoV Peak PG (test 9.52 mmHg code = 8862814019) AoV Vmax (test code 1.54 m/s = 3457095574) AoV VTI (test code = 0.29 m 7423046263) IVS,d (test code = 0.94 cm 5576023737) IVS/LVPW,2D (test 0.91 code = 1589213021) Left Atrium 4.19 cm Dimension Anterior (test code = 2700897265) LV,d (test code = 5.14 cm 3981993870) LV EF,2D (test code 85.41 % = 4949068516) LV,s (test code = 2.73 cm 7058497679) LVOT area (test code 2.86 cm2 = 1846430810) LVOT Diam,S (test 1.91 cm code = 3498567409) LVOT Vmax (test code 1.14 m/s = 7757756864) LVOT VTI (test code 0.24 m = 7243418542) LVPWD,d (test code = 1.28 cm 6893184419) PV Pk Grad (test 4.40 mmHg code = 3073829602) PV VMAX (test code = 1.05 m/s 2555753298) RVOT Vmax (test code 0.46 m/s = 8016280308) TR Vpeak (test code 1.86 mm/s = 1409350517) MV E A ratio (test 1.03 code = 5898424549) TR pk grad (test 8.51 mmHg code = 8496905465) E wave decelartion 195.45 msec time (test code = 5635085418) MV Peak A Rainer (test 0.74 m/s code = 1851389366) MV valve area p 1/2 3.43 cm2 method (test code = 5503440295) MV Peak E Rainer (test 0.81 m/s code = 6677011242) MV stenosis pressure 64.09 ms 1/2 time (test code = 7552528668) LVOT stroke volume 0.69 cm3 (test code = 0142891947) AV LVOT peak 5.16 mmHg gradient (test code = 3892162037) Ascending aorta 3.35 cm (test code = 2529453896) Ao Root Diameter 3.01 cm (test code = 8596213357) MV mean gradient 1.01 mmHg (test code = 5476979271) LV SYS VOL (test 23.51 ml code = 9424011529) LV LUQUE VOL (test 110.06 ml code = 7382132170) LA area s A4C (test 24.60 cm2 code = 1846396823) LV SV Teich 2D (test 86.56 ml code = 6213615972) LV Vol s Teich PSAX 23.51 ml (test code = 8401503046) MR peak grad (test 2.83 mmHg code = 4337590091) MV Vmax (test code = 0.90 m 5980474488) MV VTI Tips (test 0.28 m code = 7410528680) RVOT pk grad (test 0.85 mmHg code = 6060497182) AoV Vmn (test code = 0.99 7187601306) LV FS Teich 2D (test 47.35 code = 1466399165) MV AE ratio (test 0.97 code = 6855382523) LV FS Cube 2D (test 47.35 code = 9182739249) LVOT Vmn (test code 0.81 = 7221111716) Aov area Vmn (test 2.37 cm2 code = 8758966122) LVOT mean grad (test 2.89 mmHg code = 8759707851) MAX Pred HR (test 170.51 code = 9037820797) 85 of MPHR (test 144.93 code = 6670593915) Calc MPHR (test code 170.51 bpm = 4919448333) LV SV Cube 2D (test 97.34 ml code = 9050148697) LV vol d cube 2D 113.97 ml (test code = 3654193371) LV vol s cube 2D 16.63 ml (test code = 5044307452) MV Decel slope (test 4.12 m/s2 code = 1356255625) Pred Exer Dur R1 10.32 (test code = 8088546313) Pred METS R1 (test 10.58 code = 8805558875) LA Vol MOD A4C (test 67.79 ml code = 4625227206) Velocity Ratio 0.74 m/s (V1/V2) (test code = 4689) EF (test code = 78.64 % 2346697563) E/A ratio (test code 1.09 = 3286331748) LVOT VTI (CM) (test 24.00 cm code = 6127377965) DESMOND (test code = Left Ventricle: The DESMOND) left ventricular chamber size is normal. Left ventricular systolic function is normal. Left Ventricular ejection fraction is 55 - 60%. Normal left ventricular wall thickness and regional wall motion. Right Ventricle: Normal right ventricular size, wall thickness and global function. Left Atrium: LA size is mildly dilated. Right Atrium: The right atrium is normal. Mitral Valve: The mitral valve appears normal. Trace mitral valve regurgitation. No evidence of mitral valve stenosis. Tricuspid Valve: The tricuspid valve appears normal. Trace tricuspid valve regurgitation. No evidence of tricuspid valve stenosis. Left VentricleThe left ventricular chamber size is normal. Left ventricular systolic function is normal. Left Ventricular ejection fraction is 55 - 60%. Normal left ventricular wall thickness and regional wall motion.Right VentricleNormal right ventricular size, wall thickness and global function.Left AtriumLA size is mildly dilated.Right AtriumThe right atrium is normal.IVC/SVCA normal flow pattern is recorded . The inferior vena cava and the hepatic vein show a normal flow pattern.Mitral ValveThe mitral valve appears normal. Trace mitral valve regurgitation. No evidence of mitral valve stenosis.Tricuspid ValveThe tricuspid valve appears normal. Trace tricuspid valve regurgitation. No evidence of tricuspid valve stenosis.Aortic ValveThe aortic valve appears trileaflet and to open well. No evidence of significant aortic regurgitation. No evidence of aortic valve stenosis.Pulmonic ValveThe pulmonic valve appears normal. No evidence of significant pulmonary valve regurgitation. No evidence of pulmonary valve stenosis.PericardiumNo pericardial effusion seen.Pulmonary ArteryThe pulmonary artery appears normal.DiastologySpectral Doppler shows reduced, appropriate for age pattern of LV diastolic filling.AortaAortic root is normal.Study Quality All standard echocardiographic views were obtained. Study quality is adequate. Jain XvuqjhsqMYHU-OqI-2 (COVID-19) RNA [Presence] in Respiratory specimen by TIA with probe [id number] 22:26:03 Test Item Value Reference Range Interpretation Comments SARS-CoV-2 (COVID-19) RNA Not detected [Presence] in Respiratory specimen by TIA with probe detection (test code = 54845-9) Whether patient is employed in a Unknown healthcare setting (test code = 24957-4) Whether the patient has symptoms Unknown related to condition of interest (test code = 55124-9) Whether the patient was Unknown hospitalized for condition of interest (test code = 83718-8) Whether the patient was admitted Unknown to intensive care unit (ICU) for condition of interest (test code = 27883-7) Whether patient resides in a Unknown congregate care setting (test code = 78685-8) status (test code = Unknown 11370-0) Date and time of symptom onset Unknown (test code = 38776-3) [facility] 04:30:41 Test Item Value Reference Range Interpretation Comments Ethanol Lvl (test code = 90 mg/dL <=10 H 5643-2) DESMOND (test code = DESMOND) Captain/Check Airman ID - NSUVAGIYA Lab Interpretation (test Abnormal code = 28634-5) [facility]:30[facility] Test Item Value Reference Range Interpretation Comments Ethanol Lvl (test code = 90 mg/dL <=10 H 5643-2) DESMOND (test code = DESMOND) Captain/Check Airman ID - NSUVAGIYA Lab Interpretation (test Abnormal code = 24378-8) [facility] 04:30:41 Test Item Value Reference Range Interpretation Comments Ethanol Lvl (test code = 90 mg/dL <=10 H 5643-2) DESMOND (test code = DESMOND) Captain/Check Airman ID - NSUVAGIYA Lab Interpretation (test Abnormal code = 03570-2) [facility] 04:30:41 Test Item Value Reference Range Interpretation Comments ETHANOL (BEAKER) 90 mg/dL See_Comment H [Automated message] The (test code = 400) system [facility] generated this result tra nsmitted reference range : <=10. The reference r ca was not used to int erpret this result as normal/abnormal . Captain/Check Airman ID - [id number] 23:41:41 Test Item Value Reference Range Interpretation Comments ETHANOL (BEAKER) 201 mg/dL See_Comment H [Automated message] The (test code = 400) system [employer] generated this result tra nsmitted reference range : <=10. The reference r ca was not used to int erpret this result as normal/abnormal . Captain/Check Airman ID - ADMINComprehensive metabolic [id number] 18:33:06 Test Item Value Reference Range Interpretation Comments Protein, Total (test 8.6 See_Comment H [Autom ated code = 2885-2) message] The system which generated this result transmitted reference range : 6.0 - 8.5 gm/dL . The reference range was not used to interpret this result as normal/abnormal . Albumin (test code = 4.4 g/dL 3.5-5.0 98049-9) Alkaline Phosphatase 170 U/L 30-115 H (test code = 6768-6) Total Bilirubin 0.4 mg/dL 0.1-1.2 (test code = 1975-2) Sodium (test code = 143 meq/L 038-657 1630-2) Potassium (test code 3.4 meq/L 3.6-5.5 L = 2823-3) Chloride (test code 106 meq/L 98-106 = 2075-0) CO2 (test code = 19 meq/L 20-29 L 2028-9) BUN (test code = 13 mg/dL 10-26 3094-0) Creatinine (test 1.30 mg/dL 0.50-1.20 H code = 2160-0) Glucose (test code = 97 mg/dL 70-110 2345-7) Calcium (test code = 9.2 mg/dL 8.5-10.5 30547-2) AST (test code = 67 U/L 5-40 H 1920-8) ALT (test code = 80 U/L 5-50 H 1742-6) EGFR (test code = 59 mL/min/1[place]73 [place] [address]-7) m NOT ACCURATE CREATININE CLEARANCE IN PREDICTING GLOMERULAR FILTRATION RATE . ESTIMATED GFR I S NOT APPLICABLE FOR DIALYSIS PATIENTS. DESMOND (test code = Captain/Check Airman ID - DESMOND) ADMINOperator ID - ADMINOperator ID - ADMINOperator ID - ADMINOperator ID - ADMINOperator ID - ADMINOperator ID - ADMINOperator ID - ADMINOperator ID - ADMINOperator ID - ADMINOperator ID - ADMINOperator ID - ADMINOperator ID - ADMINOperator ID - ADMINOperator ID - ADMINOperator ID - ADMIN Lab Interpretation Abnormal (test code = 73259-6) [facility] [id number] 18:33:06 Test Item Value Reference Range Interpretation Comments Protein, Total (test 8.6 See_Comment H [Autom ated code = 2885-2) message] The system which generated this result transmitted reference range : 6.0 - 8.5 gm/dL . The reference range was not used to interpret this result as normal/abnormal . Albumin (test code = 4.4 g/dL 3.5-5.0 39265-2) Alkaline Phosphatase 170 U/L 30-115 H (test code = 6768-6) Total Bilirubin 0.4 mg/dL 0.1-1.2 (test code = 1975-2) Sodium (test code = 143 meq/L 338-137 4807-2) Potassium (test code 3.4 meq/L 3.6-5.5 L = 2823-3) Chloride (test code 106 meq/L 98-106 = 2075-0) CO2 (test code = 19 meq/L 20-29 L 2028-9) BUN (test code = 13 mg/dL 10-26 3094-0) Creatinine (test 1.30 mg/dL 0.50-1.20 H code = 2160-0) Glucose (test code = 97 mg/dL 70-110 2345-7) Calcium (test code = 9.2 mg/dL 8.5-10.5 06063-5) AST (test code = 67 U/L 5-40 H 1920-8) ALT (test code = 80 U/L 5-50 H 1742-6) EGFR (test code = 59 mL/min/1.[place] [address]-7) m NOT ACCURATE CREATININE CLEARANCE IN PREDICTING GLOMERULAR FILTRATION RATE . ESTIMATED GFR I S NOT APPLICABLE FOR DIALYSIS PATIENTS. DESMOND (test code = Captain/Check Airman ID - DESMOND) ADMINOperator ID - ADMINOperator ID - ADMINOperator ID - ADMINOperator ID - ADMINOperator ID - ADMINOperator ID - ADMINOperator ID - ADMINOperator ID - ADMINOperator ID - ADMINOperator ID - ADMINOperator ID - ADMINOperator ID - ADMINOperator ID - ADMINOperator ID - ADMINOperator ID - ADMIN Lab Interpretation Abnormal (test code = 28785-5) [facility] [id number] 18:33:06 Test Item Value Reference Range Interpretation Comments Protein, Total (test 8.6 See_Comment H [Autom ated code = 2885-2) message] The system which generated this result transmitted reference range : 6.0 - 8.5 gm/dL . The reference range was not used to interpret this result as normal/abnormal . Albumin (test code = 4.4 g/dL 3.5-5.0 75849-9) Alkaline Phosphatase 170 U/L 30-115 H (test code = 6768-6) Total Bilirubin 0.4 mg/dL 0.1-1.2 (test code = 1975-2) Sodium (test code = 143 meq/L 514-648 2567-2) Potassium (test code 3.4 meq/L 3.6-5.5 L = 2823-3) Chloride (test code 106 meq/L 98-106 = 2075-0) CO2 (test code = 19 meq/L 20-29 L 2028-9) BUN (test code = 13 mg/dL 10-26 3094-0) Creatinine (test 1.30 mg/dL 0.50-1.20 H code = 2160-0) Glucose (test code = 97 mg/dL 70-110 2345-7) Calcium (test code = 9.2 mg/dL 8.5-10.5 31782-1) AST (test code = 67 U/L 5-40 H 1920-8) ALT (test code = 80 U/L 5-50 H 1742-6) EGFR (test code = 59 mL/min/1.[place] [address]-1) m NOT ACCURATE CREATININE CLEARANCE IN PREDICTING GLOMERULAR FILTRATION RATE . ESTIMATED GFR I S NOT APPLICABLE FOR DIALYSIS PATIENTS. DESMOND (test code = Captain/Check Airman ID - DESMOND) ADMINOperator ID - ADMINOperator ID - ADMINOperator ID - ADMINOperator ID - ADMINOperator ID - ADMINOperator ID - ADMINOperator ID - ADMINOperator ID - ADMINOperator ID - ADMINOperator ID - ADMINOperator ID - ADMINOperator ID - ADMINOperator ID - ADMINOperator ID - ADMINOperator ID - ADMIN Lab Interpretation Abnormal (test code = 31802-2) [place] [facility] CenterCOMPRE[facility]IVE METABOLIC [id number] 18:33:06 Test Item Value Reference Range Interpretation Comments TOTAL PROTEIN 8.6 gm/dL 6.0-8.5 H (BEAKER) (test code = 770) ALBUMIN (BEAKER) 4.4 g/dL 3.5-5.0 (test code = 1145) ALKALINE PHOSPHATASE 170 U/L 30-115 H (BEAKER) (test code = 346) BILIRUBIN TOTAL 0.4 mg/dL 0.1-1.2 (BEAKER) (test code = 377) SODIUM (BEAKER) (test 143 meq/L 135-148 code = 381) POTASSIUM (BEAKER) 3.4 meq/L 3.6-5.5 L (test code = 379) CHLORIDE (BEAKER) 106 meq/L 98-106 (test code = 382) CO2 (BEAKER) (test 19 meq/L 20-29 L code = 355) BLOOD UREA NITROGEN 13 mg/dL 10-26 (BEAKER) (test code = 354) CREATININE (BEAKER) 1.30 mg/dL 0.50-1.20 H (test code = 358) GLUCOSE RANDOM 97 mg/dL 70-110 (BEAKER) (test code = 652) CALCIUM (BEAKER) 9.2 mg/dL 8.5-10.5 (test code = 697) AST (SGOT) (BEAKER) 67 U/L 5-40 H (test code = 353) ALT (SGPT) (BEAKER) 80 U/L 5-50 H (test code = 347) EGFR (BEAKER) (test 59 mL/min/1.73 ESTIMA JHONATAN GFR IS code = 1092) sq m NOT ACCURATE CREATININE CLEARANCE IN PREDICTING GLOMERULAR FILTRATION RATE . ESTIMATED GFR I S NOT APPLICABLE FOR DIALYSIS PATIEN TS. Captain/Check Airman ID - ADMINOperator ID - ADMINOperator ID - ADMINOperator ID - ADMINOperator ID - ADMINOperator ID - ADMINOperator ID - ADMINOperator ID - ADMINOperator ID - ADMINOperator ID - ADMINOperator ID- ADMINOperator ID - ADMINOperator ID - ADMINOperator ID - ADMINOperator ID - ADMINOperator ID - ADMI [id number] 18:32:23 Test Item Value Reference Range Interpretation Comments Lipase (test code = 43 U/L 6-51 3040-3) DESMOND (test code = DESMOND) Captain/Check Airman ID - ADMINOperator ID - ADMINOperator ID - ADMINOperator ID - ADMIN Lab Interpretation Normal (test code = 98861-8) [facility] 18:32:23 Test Item Value Reference Range Interpretation Comments Lipase (test code = 43 U/L 6-51 3040-3) DESMOND (test code = DESMOND) Captain/Check Airman ID - ADMINOperator ID - ADMINOperator ID - ADMINOperator ID - ADMIN Lab Interpretation Normal (test code = 17470-7) [facility] 18:32:23 Test Item Value Reference Range Interpretation Comments Lipase (test code = 43 U/L 6-51 3040-3) DESMOND (test code = DESMOND) Captain/Check Airman ID - ADMINOperator ID - ADMINOperator ID - ADMINOperator ID - ADMIN Lab Interpretation Normal (test code = 86307-3) [facility] 18:32:23 Test Item Value Reference Range Interpretation Comments LIPASE (BEAKER) (test code = 749) 43 U/L 6-51 Captain/Check Airman ID - ADMINOperator ID - ADMINOperator ID - ADMINOperator ID - ADMIN [id number] 18:28:27 Test Item Value Reference Range Interpretation Comments ETHANOL (BEAKER) 324 mg/dL See_Comment H [Automated message] The (test code = 400) system [employer] generated this result tra nsmitted reference range : <=10. The reference r ca was not used to int erpret this result as normal/abnormal . Captain/Check Airman ID - ADMINCBC with platelet count + automated [id number] 18:14:35 Test Item Value Reference Range Interpretation Comments WBC (test code = 6690-2) 7.0 See_Comment [A utomated message] The system [employer] generated this result transmitted ref erence range: 4.0 - 10 .0 K/L. The refe rence range was not u sed to interpret this result as normal/abnor mal. RBC (test code = 789-8) 4.94 See_Comment [Au tomated message] The system [employer] generated this result transmitted ref erence range: 4.20 - 5 .80 M/L. The refe rence range was not u sed to interpret this result as normal/abnor mal. MCHC (test code = 786-4) 34.5 See_Comment [A utomated message] The system [employer] generated this result transmitted ref erence range: 32.0 - 3 6.0 GM/DL. The refe rence range was not u sed to interpret this result as normal/abnor mal. Hematocrit (test code = 45.8 % 36.0-50.0 4544-3) MCV (test code = 787-2) 92.7 fL 82.0-99.0 MCH (test code = 785-6) 32.0 pg 27.0-33.0 RDW (test code = 788-0) 15.2 % 12.0-15.0 H Platelets (test code = 225 See_Comment [Aut omated message] 777-3) The system [employer] generated this result transmitted ref erence range: 150 - 43 0 K/CU MM. The referen ce range was not u sed to interpret this result as normal/abnor mal. MPV (test code = 9.4 fL 6.0-11.5 09028-5) nRBC (test code = 413) 0 See_Comment [Aut omated message] The system [employer] generated this result transmitted ref erence range: 0 - 0 /1 00 WBC. The refere nce range was not u sed to interpret this result as normal/abnor mal. % Neutros (test code = 61 % 429) % Lymphs (test code = 31 % 430) % Monos (test code = 5 % 431) % Eos (test code = 432) 2 % % Baso (test code = 437) 1 % # Neutros (test code = 4.27 See_Comment [Aut omated message] 670) The system [employer] generated this result transmitted ref erence range: 1.80 - 8 .00 K/L. The refe rence range was not u sed to interpret this result as normal/abnor mal. # Lymphs (test code = 2.16 See_Comment [Auto mated message] 414) The system [employer] generated this result transmitted ref erence range: 1.48 - 4 .50 K/L. The refe rence range was not u sed to interpret this result as normal/abnor mal. # Monos (test code = 0.38 See_Comment [Autom ated message] 415) The system [employer] generated this result transmitted ref erence range: 0.00 - 1 .30 K/L. The refe rence range was not u sed to interpret this result as normal/abnor mal. # Eos (test code = 416) 0.11 See_Comment [Au tomated message] The system [employer] generated this result transmitted ref erence range: 0.00 - 0 .50 K/L. The refe rence range was not u sed to interpret this result as normal/abnor mal. # Baso (test code = 417) 0.05 See_Comment [A utomated message] The system [employer] generated this result transmitted ref erence range: 0.00 - 0 .20 K/L. The refe rence range was not u sed to interpret this result as normal/abnor mal. Immature 0 % 0-0 Granulocytes-Relative (test code = 2801) Lab Interpretation (test Abnormal code = 36749-3) [facility] with platelet count + automated [id number] 18:14:35 Test Item Value Reference Range Interpretation Comments WBC (test code = 6690-2) 7.0 See_Comment [A utomated message] The system [employer] generated this result transmitted ref erence range: 4.0 - 10 .0 K/L. The refe rence range was not u sed to interpret this result as normal/abnor mal. RBC (test code = 789-8) 4.94 See_Comment [Au tomated message] The system [employer] generated this result transmitted ref erence range: 4.20 - 5 .80 M/L. The refe rence range was not u sed to interpret this result as normal/abnor mal. MCHC (test code = 786-4) 34.5 See_Comment [A utomated message] The system [employer] generated this result transmitted ref erence range: 32.0 - 3 6.0 GM/DL. The refe rence range was not u sed to interpret this result as normal/abnor mal. Hematocrit (test code = 45.8 % 36.0-50.0 4544-3) MCV (test code = 787-2) 92.7 fL 82.0-99.0 MCH (test code = 785-6) 32.0 pg 27.0-33.0 RDW (test code = 788-0) 15.2 % 12.0-15.0 H Platelets (test code = 225 See_Comment [Aut omated message] 777-3) The system [employer] generated this result transmitted ref erence range: 150 - 43 0 K/CU MM. The referen ce range was not u sed to interpret this result as normal/abnor mal. MPV (test code = 9.4 fL 6.0-11.5 99798-1) nRBC (test code = 413) 0 See_Comment [Aut omated message] The system [employer] generated this result transmitted ref erence range: 0 - 0 /1 00 WBC. The refere nce range was not u sed to interpret this result as normal/abnor mal. % Neutros (test code = 61 % 429) % Lymphs (test code = 31 % 430) % Monos (test code = 5 % 431) % Eos (test code = 432) 2 % % Baso (test code = 437) 1 % # Neutros (test code = 4.27 See_Comment [Aut omated message] 670) The system [employer] generated this result transmitted ref erence range: 1.80 - 8 .00 K/L. The refe rence range was not u sed to interpret this result as normal/abnor mal. # Lymphs (test code = 2.16 See_Comment [Auto mated message] 414) The system [employer] generated this result transmitted ref erence range: 1.48 - 4 .50 K/L. The refe rence range was not u sed to interpret this result as normal/abnor mal. # Monos (test code = 0.38 See_Comment [Autom ated message] 415) The system [employer] generated this result transmitted ref erence range: 0.00 - 1 .30 K/L. The refe rence range was not u sed to interpret this result as normal/abnor mal. # Eos (test code = 416) 0.11 See_Comment [Au tomated message] The system [employer] generated this result transmitted ref erence range: 0.00 - 0 .50 K/L. The refe rence range was not u sed to interpret this result as normal/abnor mal. # Baso (test code = 417) 0.05 See_Comment [A utomated message] The system [employer] generated this result transmitted ref erence range: 0.00 - 0 .20 K/L. The refe rence range was not u sed to interpret this result as normal/abnor mal. Immature 0 % 0-0 Granulocytes-Relative (test code = 2801) Lab Interpretation (test Abnormal code = 41210-1) [facility] with platelet count + automated [id number] 18:14:35 Test Item Value Reference Range Interpretation Comments WBC (test code = 6690-2) 7.0 See_Comment [A utomated message] The system [employer] generated this result transmitted ref erence range: 4.0 - 10 .0 K/L. The refe rence range was not u sed to interpret this result as normal/abnor mal. RBC (test code = 789-8) 4.94 See_Comment [Au tomated message] The system [employer] generated this result transmitted ref erence range: 4.20 - 5 .80 M/L. The refe rence range was not u sed to interpret this result as normal/abnor mal. MCHC (test code = 786-4) 34.5 See_Comment [A utomated message] The system [employer] generated this result transmitted ref erence range: 32.0 - 3 6.0 GM/DL. The refe rence range was not u sed to interpret this result as normal/abnor mal. Hematocrit (test code = 45.8 % 36.0-50.0 4544-3) MCV (test code = 787-2) 92.7 fL 82.0-99.0 MCH (test code = 785-6) 32.0 pg 27.0-33.0 RDW (test code = 788-0) 15.2 % 12.0-15.0 H Platelets (test code = 225 See_Comment [Aut omated message] 777-3) The system [employer] generated this result transmitted ref erence range: 150 - 43 0 K/CU MM. The referen ce range was not u sed to interpret this result as normal/abnor mal. MPV (test code = 9.4 fL 6.0-11.5 88299-8) nRBC (test code = 413) 0 See_Comment [Aut omated message] The system [employer] generated this result transmitted ref erence range: 0 - 0 /1 00 WBC. The refere nce range was not u sed to interpret this result as normal/abnor mal. % Neutros (test code = 61 % 429) % Lymphs (test code = 31 % 430) % Monos (test code = 5 % 431) % Eos (test code = 432) 2 % % Baso (test code = 437) 1 % # Neutros (test code = 4.27 See_Comment [Aut omated message] 670) The system [employer] generated this result transmitted ref erence range: 1.80 - 8 .00 K/L. The refe rence range was not u sed to interpret this result as normal/abnor mal. # Lymphs (test code = 2.16 See_Comment [Auto mated message] 414) The system [employer] generated this result transmitted ref erence range: 1.48 - 4 .50 K/L. The refe rence range was not u sed to interpret this result as normal/abnor mal. # Monos (test code = 0.38 See_Comment [Autom ated message] 415) The system [employer] generated this result transmitted ref erence range: 0.00 - 1 .30 K/L. The refe rence range was not u sed to interpret this result as normal/abnor mal. # Eos (test code = 416) 0.11 See_Comment [Au tomated message] The system [employer] generated this result transmitted ref erence range: 0.00 - 0 .50 K/L. The refe rence range was not u sed to interpret this result as normal/abnor mal. # Baso (test code = 417) 0.05 See_Comment [A utomated message] The system [employer] generated this result transmitted ref erence range: 0.00 - 0 .20 K/L. The refe rence range was not u sed to interpret this result as normal/abnor mal. Immature 0 % 0-0 Granulocytes-Relative (test code = 2801) Lab Interpretation (test Abnormal code = 03016-2) [facility] W/PLT COUNT & AUTO [id number] 18:14:35 Test Item Value Reference Range Interpretation Comments WHITE BLOOD CELL COUNT (BEAKER) 7.0 K/ L 4.0-10.0 (test code = 775) RED BLOOD CELL COUNT (BEAKER) 4.94 M/ L 4.20-5.80 (test code = 761) HEMOGLOBIN (BEAKER) (test code = 15.8 GM/DL 13.0-16.8 410) HEMATOCRIT (BEAKER) (test code = 45.8 % 36.0-50.0 411) MEAN CORPUSCULAR VOLUME (BEAKER) 92.7 fL 82.0-99.0 (test code = 753) MEAN CORPUSCULAR HEMOGLOBIN 32.0 pg 27.0-33.0 (BEAKER) (test code = 751) MEAN CORPUSCULAR HEMOGLOBIN CONC 34.5 GM/DL 32.0-36.0 (BEAKER) (test code = 752) RED CELL DISTRIBUTION WIDTH 15.2 % 12.0-15.0 H (BEAKER) (test code = 412) PLATELET COUNT (BEAKER) (test 225 K/CU MM 150-430 code = 756) MEAN PLATELET VOLUME (BEAKER) 9.4 fL 6.0-11.5 (test code = 754) NUCLEATED RED BLOOD CELLS 0 /100 WBC 0-0 (BEAKER) (test code = 413) NEUTROPHILS RELATIVE PERCENT 61 % (BEAKER) (test code = 429) LYMPHOCYTES RELATIVE PERCENT 31 % (BEAKER) (test code = 430) MONOCYTES RELATIVE PERCENT 5 % (BEAKER) (test code = 431) EOSINOPHILS RELATIVE PERCENT 2 % (BEAKER) (test code = 432) BASOPHILS RELATIVE PERCENT 1 % (BEAKER) (test code = 437) NEUTROPHILS ABSOLUTE COUNT 4.27 K/ L 1.80-8.00 (BEAKER) (test code = 670) LYMPHOCYTES ABSOLUTE COUNT 2.16 K/ L 1.48-4.50 (BEAKER) (test code = 414) MONOCYTES ABSOLUTE COUNT (BEAKER) 0.38 K/ L 0.00-1.30 (test code = 415) EOSINOPHILS ABSOLUTE COUNT 0.11 K/ L 0.00-0.50 (BEAKER) (test code = 416) BASOPHILS ABSOLUTE COUNT (BEAKER) 0.05 K/ L 0.00-0.20 (test code = 417) IMMATURE GRANULOCYTES-RELATIVE 0 % 0-0 PERCENT (BEAKER) (test code = 2801) - CT ABD PELVIS [id number] 10:24:00 [facility] 1970 Sex: M Name: LILLIAN GARRIDO [facility] : 1970 Age/S: 50 / M [address] [facility] Unit #: [id number] Loc: [place] [address] Phys: Shyla Andrade NP Acct: [id number] Dis Date: Status: REG ER PHONE #: [phone] Exam Date: 12/20/2020 1006 FAX #: [phone] Reason: abd pain, nausea, h/o liver transplant EXAMS: CPT CODE: [id number] CT ABD PELVIS W/CONT 21880 REASON FOR EXAM: abd pain, nausea, h/o liver transplant EXAM ORDER DATE: 12/20/2020 8:15 AM Ordering M.DKatia: Shyla Andrade NP PROCEDURE: Axial CT images were acquired through the abdomen/pelvis at 5 mm intervals. Sagittal and coronal reformatted images were generated. Automated exposure control was utilized for this reduction. Phases of contrast: venous and delayed COMPARISON: None FINDINGS: Visualized thorax: Mild subsegmental atelectasis is present in the right lung base Hepatobiliary system: Cholecystectomy. Liver appears within normal limits Pancreas: Normal Spleen: Normal Adrenal glands: Normal Genitourinary system: Normal Gastrointestinal tract and appendix: Normal Abdominal vascular structures: There are surgical clips in the IVC which are likely secondary to prior anastomosis Peritoneum and retroperitoneum: No free fluid or free air. No omental or mesenteric masses. No abnormal lymph nodes. Musculoskeletal structures and abdominal wall: There are postsurgical changes in the anterior abdominal wall small fat-containing ventral hernia (2/41). No inflammatory changes in the hernia sac. There also appears to been prior ventral hernia appear inferior to this hernia. Degenerative changes are present in the spine. PAGE 1 SignedReport (CONTINUED) Name: LILLIAN GARRIDO [facility] : 1970 Age/S: 50 / M [address] [facility] Unit #: [id number] Loc: [place] [address] Phys: Shyla Andrade NP Acct: [id number] Dis Date: Status: REG ER PHONE #: [phone] Exam Date: 12/20/2020 1006 FAX #: [phone] Reason: abd pain, nausea, h/o liver transplant EXAMS: CPT CODE: [id number] CT ABD PELVIS W/CONT 13059 (Continued) IMPRESSION: No acute intra-abdominal process. Fat-containing ventral hernia in the epigastric region. No inflammatory changes in the hernia sac. Postsurgical changes of orthotopic liver transplant. Location: [facility] at 1024 Reported and signed by: Abner Arias MD CC: Richard Mendez MD; Shyla Andrade NP Technologist:RT PHILIPPE(R) CT CTDI: DLP: Trnscb Date/Time: 12/20/2020 (1024) [email or web address] Orig Print D/T: S: 12/20/2020 (1028) PAGE 2 Signed Report URINALYSIS [id number] 09:48:00 Test Item Value Reference Range Interpretation Comments UA COLOR (test code = YELLOW YELLOW COLU) UA APPEARANCE (test code CLEAR CLEAR = APPU) UA GLUCOSE DIPSTICK (test NEGATIVE mg/dL NEGATIVE code = DGLUU) UA BILIRUBIN DIPSTICK NEGATIVE mg/dL NEGATIVE (test code = BILU) UA KETONE DIPSTICK (test NEGATIVE mg/dL NEGATIVE code = KETU) UA SPECIFIC GRAVITY (test 1.021 1.001-1.035 code = SGU) UA BLOOD DIPSTICK (test 0.06 mg/dL (1+) NEGATIVE A code = WILLIE) mg/dL UA PH DIPSTICK (test code 5.5 5.0-8.0 = YASMIN) UA PROTEIN DIPSTICK (test 30 (1+) mg/dL NEGATIVE A code = PROU) UA UROBILINIOGEN DIPSTICK Normal mg/dL NEGATIVE (test code = URO) UA NITRITE DIPSTICK (test NEGATIVE NEGATIVE code = ALIDA) UA LEUKOCYTE ESTERASE W NEGATIVE Colt/uL NEGATIVE REFLEX (test code = LEUUR) UA WBC (test code = WBCU) 0-5 per HPF 0-5 UA RBC (test code = RBCU) 0-2 #/HPF 0-5 UA EPITHELIAL CELLS (test Few (2-5/hpf) per FEW code = EPIU) HPF UA BACTERIA (test code = NONE SEEN #/HPF NONE BACU) UA MUCUS (test code = FEW #/LPF FEW MUCU) Urine Source? Clean CatchCBC W/O [id number] 09:39:00 Test Item Value Reference Range Interpretation Comments WHITE BLOOD CELL (test code = 8.2 K/mm3 4.5-12.5 N WBC) RED BLOOD CELL (test code = 4.74 mill/mm3 4.0-5.8 N RBC) HEMOGLOBIN (test code = HGB) 15.3 gram/dL 13.0-17.5 N HEMATOCRIT (test code = HCT) 45.3 % 42.0-52.0 N MEAN CELL VOLUME (test code = 95.6 fL 80-98 N MCV) MEAN CELL HGB (test code = MCH) 32.3 picogram 27.0-33.0 N MEAN CELL HGB CONCETRATION 33.8 gram/dL 33.0-36.0 N (test code = MCHC) RED CELL DISTRIBUTION WIDTH 13.4 % 11.6-16.2 N (test code = RDW) PLATELET COUNT (test code = 305 K/mm3 150-450 N PLT) MEAN PLATELET VOLUME (test code 10.2 fL 6.7-11.0 N = MPV) [id number] 09:16:00 Test Item Value Reference Range Interpretation Comments LIPASE (test code = LIP) 35 U/L 12-57 N [id number] 09:16:00 Test Item Value Reference Range Interpretation Comments TROPONIN-I (test code = TROPI) < 0.006 ng/mL 0-0.045 N BASIC METABOLIC [id number] 09:16:00 Test Item Value Reference Range Interpretation Comments SODIUM (test code = 141 mmol/L 136-145 N NA) POTASSIUM (test code 5.0 mmol/L 3.5-5.1 N = K) CHLORIDE (test code 112.0 mmol/L 98-107 H = CL) CARBON DIOXIDE (test 18.0 mmol/L 21-32 L code = CO2) ANION GAP (test code 16.0 10-20 N = GAP) GLUCOSE (test code = 107 mg/dL 74-106 H GLU) BLOOD UREA NITROGEN 13 mg/dL 7-18 N (test code = BUN) GLOMERULAR > 60 mL/min See_Comment Estimated GFR b y FILTRATION RATE using Modifi ed MDRD (test code = GFR) formula.Ch ronic kidney disease is defined as eith er kidney damageor GFR <60 mL/min/1.73 m2 for >3 months. [Automated mess age] The system [employer] generated this result transmitted ref erence range: >=60. Th e reference range was not used to int erpret this result as normal/abnormal . CREATININE (test 1.10 mg/dL 0.7-1.3 N code = CREAT) BUN/CREATININE RATIO 11.8 10-20 N (test code = BUN/CREA) CALCIUM (test code = 8.4 mg/dL 8.5-10.1 L CA) HEPATIC FUNCTION [id number] 09:16:00 Test Item Value Reference Range Interpretation Comments TOTAL PROTEIN (test 7.1 gram/dL 6.4-8.2 N code = PROT) ALBUMIN (test code = 3.5 g/dL 3.4-5.0 N ALB) GLOBULIN (test code = 3.6 gram/dL 2.7-4.2 N GLOB) ALBUMIN/GLOBULIN RATIO 1.0 0.75-1.50 N (test code = A/G) BILIRUBIN TOTAL (test 0.60 mg/dL 0.0-1.0 N code = BILT) BILIRUBIN DIRECT (test 0.10 mg/dL 0.0-0.20 N code = BILD) SGOT/AST (test code = 52 IUnit/L 15-37 H AST) SGPT/ALT (test code = 37 IUnit/L 12-78 N ALT) ALKALINE PHOSPHATASE 118 IUnit/L 45-117 H Note change in TOTAL (test code = reference range due ALKP) to change in reagent. COVID 19 INHOUSE [id number] 08:47:00 Test Item Value Reference Range Interpretation Comments COVID 19 INHOUSE AG (test code = NEGATIVE NEGATIVE [id number]) SARS-CoV-2 (COVID-19) RNA [Presence] in Respiratory specimen by TIA with probe [id number] 02:42:08 Test Item Value Reference Range Interpretation Comments SARS-CoV-2 (COVID-19) RNA Not detected Not-Detected [Presence] in Respiratory specimen by TIA with probe detection (test code = 44146-4) [facility]-CoV-2 (COVID-19) RNA [Presence] in Respiratory specimen by TIA with probe [id number] 04:10:10 Test Item Value Reference Range Interpretation Comments SARS-CoV-2 (COVID-19) RNA Not detected Not-Detected [Presence] in Respiratory specimen by TIA with probe detection (test code = 51564-9) [facility] RNA [Presence] in Respiratory specimen by TIA with probe [id number] 07:08:40 Test Item Value Reference Range Interpretation Comments SARS-CoV-2 (COVID-19) RNA Not detected Not-Detected [Presence] in Respiratory specimen by TIA with probe detection (test code = 39500-3) [facility]-CoV-2 (COVID-19) RNA [Presence] in Respiratory specimen by TIA with probe [id number] 09:54:05 Test Item Value Reference Range Interpretation Comments SARS-CoV-2 (COVID-19) RNA Not detected Not-Detected [Presence] in Respiratory specimen by TIA with probe detection (test code = 83197-2) [facility] abdomen pelvis wo contrast [facility] [address] [place] [address] Patient Name: Elis Garrido Medical Record#: [id number] Address: Unknown City/State/Zip: [place] [address]: Hossein Carrion MD Insurance: Self Pay /Age/Sex: 1970/51/M Admit/Reg Date: 11/17/[address]: MD Dino Maier, [facility] Location: MED/ PCP: Pcp-Md ORIANA Zhu Date of Service: 11/17/21 Order (s): CT abdomen pelvis wo contrast CPT Code: 45483 Report Number: [id number] Reason for Exam: abdominal pain Exam: CT abdomen and pelvis without contrast. Location: H 12 History: abdominal pain Technique: Unenhanced spiral slices were taken from the domes of the diaphragm, through the pubic symphysis. Sagittal and coronal reformations were performed. One or more of the following dose reduction techniques were used: Automated exposure control, adjustment of the mA and/or kV according to patient size, and/or utilization of iterative reconstruction technique. Findings: The liver is of normal, homogeneous density. No mass is seen. The intra-and extrahepatic biliary tree is normal. The gallbladder is not visualized. The pancreas is normal. The pancreatic duct is normal in caliber. The spleen and adrenal glands are normal in size and shape. The kidneys are unremarkable. No perinephric fluid collections or hydronephrosis is seen. The large and small intestine are normal in caliber. The appendix is normal. No lymphadenopathy is found in the abdomen or the pelvis. No free fluid is seen. Previous ventral hernia repair is seen. The pelvic structures are unremarkable. The lung bases are clear. No incidental findings are noted. Impression: No acute abdominal findings. Electronically signed by: Eliseo Hernandez MD 11/17/2021 10:04 PM CDT Dictated By: Eliseo Hernandez MD 11/17/212144 Signed By: Eliseo Hernandez MD 11/17/212206 TD/TT: 11/17/212144 Tech: [id number] cc: ALEN; PCPNO* MD Dino Maier, PAC; Pcp-Md ORIANA Zhu"
--- NOTE | 2022-07-28 17:07 | RAD REPORT ---
EXAM DESCRIPTION: RAD - Chest Single View - 07/28/2022 5:00 pm CLINICAL HISTORY: CHEST PAIN Chest pain. COMPARISON: No comparisons FINDINGS: Portable technique limits examination quality. The lungs are grossly clear. The heart is normal in size. No displaced fractures. IMPRESSION: No acute intrathoracic process suspected.
[2022-07-28 17:31] LABS: Hematocrit 28.7 % (39.6-49.0); MCV 93.5 fL (80-100); MPV 8.4 fL (7.6-11.3); RBC Red Blood Cell Count 3.07 M/uL (4.33-5.43)
[2022-07-28 18:03] LABS: Troponin High Sensitivity 6.2 pg/mL (<58.9)
[2022-07-28 18:11] LABS: Potassium 3.1 mmol/L (3.5-5.1)
[2022-07-28 18:46] LABS: Blood Morphology Comment NOT SEEN (NOT SEEN); Platelet Estimate ADEQ
--- NOTE | 2022-07-28 19:59 | ER ---
Nurse's Notes [facility] Name: Manuel Garrido Age: 52 yrs Sex: Male : 1970 Arrival Date: 07/28/2022 Time: 15:38 Bed 15 Private MD: Diagnosis: Chest pain, unspecified;Dyspnea;Liver transplant status-liver failure, fibrosis;Unspecified kidney failure-insufficency;Hypokalemia;Anemia, unspecified;Abdominal pain, Generalized-mild;Bandemia Presentation: 07/28 15:41 Chief complaint: EMS states: patient was discharged from the [facility] in [place] this ko1 morning, he was supposed to be admitted to a drug rehab program here however that fell through and he began not feeling well so his MD in [place] told him to call EMS and come here. Coronavirus screen: At this time, the client does not indicate any symptoms associated with coronavirus-19. Ebola Screen: No symptoms or risks identified at this time. Initial Sepsis Screen: Does the patient meet any 2 criteria? No. Patient's initial sepsis screen is negative. Does the patient have a suspected source of infection? No. Patient's initial sepsis screen is negative. Risk Assessment: Do you want to hurt yourself or someone else? Patient reports no desire to harm self or others. Onset of symptoms was July 28, 2022. 15:41 Method Of Arrival: EMS: [facility] ko1 15:41 Acuity: RAFIQ 3 ko1 Triage Assessment: 15:46 General: Appears in no apparent distress. comfortable, Behavior is calm, cooperative, ko1 appropriate for age. Pain: Denies pain. Historical: - Allergies: 15:46 No Known Allergies; ko1 - Immunization history:: Adult Immunizations unknown. - Social history:: Smoking status: Patient denies any tobacco usage or history of. Screenin:00 [facility] ED Fall Risk Assessment (Adult) History of falling in the last 3 months, ko1 including since admission No falls in past 3 months (0 pts) Confusion or Disorientation No (0 pts) Intoxicated or Sedated No (0 pts) Impaired Gait No (0 pts) Mobility Assist Device Used No (0 pt) Altered Elimination No (0 pt) Score/Fall Risk Level 0 - 2 = Low Risk Oriented to surroundings, Maintained a safe environment, Educated pt \T\ family on fall prevention, incl call for assistance when getting out of bed, Assessed \T\ reinforced patient's understanding of fall precautions, Provided non-skid footwear, Hourly rounding (assess needs \T\ fall precautionary measures) done, Used ambulatory aids as needed (educated on \T\ assisted with), Used gait belt as appropriate. Abuse screen: Denies threats or abuse. Denies injuries from another. Nutritional screening: No deficits noted. Tuberculosis screening: No symptoms or risk factors identified. Assessment: 16:00 General: Appears in no apparent distress. comfortable, Behavior is calm, cooperative, ko1 appropriate for age. Pain: Denies pain. Neuro: No deficits noted. Cardiovascular: No deficits noted. Respiratory: No deficits noted. GI: No deficits noted. : No deficits noted. EENT: Sclera/Cornea are cloudy in iris of left eye. Derm: Skin is jaundiced. Musculoskeletal: No deficits noted. 22:34 Reassessment: No changes from previously documented assessment. Patient and/or family ll3 updated on plan of care and expected duration. Pain level reassessed. Patient is alert, oriented x 3, equal unlabored respirations, skin warm/dry/pink. Vital Signs: 15:41 BP 120 / 76; Pulse 88; Resp 18; Temp 98.1; Pulse Ox 100% ; Weight 83.91 kg; Height 5 ko1 ft. 3 in. (160.02 cm); Pain 0/10; 16:00 BP 108 / 70; Pulse 80; Resp 18; Pulse Ox 98% ; ko1 18:45 BP 131 / 85; Pulse 72; Resp 16; Pulse Ox 98% ; ko1 21:38 BP 138 / 84; Pulse 69; Resp 20; Pulse Ox 100% on R/A; ll3 15:41 Body Mass Index 32.77 (83.91 kg, 160.02 cm) ko1 ED Course: 15:38 Patient arrived in ED. ko1 15:38 Julisa Sr, RN is Primary Nurse. ko1 15:46 Triage completed. ko1 15:46 Arm band placed on right wrist. ko1 15:49 Rafi Vincent DO is Attending Physician. ms3 16:00 Patient has correct armband on for positive identification. Bed in low position. Call ko1 light in reach. Side rails up X 1. Client placed on continuous cardiac and pulse oximetry monitoring. NIBP monitoring applied. potline monitor on. 17:15 Inserted saline lock: 22 gauge in left antecubital area, using aseptic technique. Blood ko1 collected. 17:21 Basic Metabolic Panel Sent. ko1 17:21 CBC with Diff Sent. ko1 17:21 Troponin HS Sent. ko1 17:27 Attending Physician role handed off by Rafi Vincent DO ms3 17:27 Faraz Espana MD is Attending Physician. ms3 19:22 Primary Nurse role handed off by Julisa Sr, TAMIKO mw2 19:32 initiated a transfer with [facility]. mw2 19:33 Attending Physician role handed off by Faraz Espana MD [facility] 19:33 Pedro Pablo Luna MD is Attending Physician. beni 20:10 [facility] declined due to capacity. mw2 20:21 initiated a transfer with Juliana Ulloa from [facility]. mw2 21:[address] Luna with the Doctors from [facility]. mw2 21:30 administrative approval given by Juliana Ulloa/ patient has been accepted to [address] to [address] [place] bed 2025/ Dr. Ji accepted the patient in transfer/report to be called to [phone]. 22:34 No provider procedures requiring assistance completed. Patient transferred, IV remains ll3 in place. Administered Medications: 20:40 Drug: ProTONIX (pantoprazole) 40 mg Route: IVP; Site: left antecubital; ll3 21:49 Follow up: Response: No adverse reaction ll3 20:40 Drug: Potassium Effervescent Tablet 25 mEq Route: PO; ll3 21:49 Follow up: Response: No adverse reaction ll3 21:43 Drug: Rocephin (cefTRIAXone) 1 grams Route: IV; Rate: per protocol; Site: left ll3 antecubital; Medication: 22:35 VIS not applicable for this client. ll3 Outcome: 19:58 ER care complete, transfer ordered by . beni 22:34 Transferred by ground EMS to [facility], Transfer form completed. ll3 X-rays sent w/ patient. 22:34 Condition: stable 22:34 Discharge instructions given to patient, EMS, Instructed on the need for transfer, Demonstrated understanding of instructions. 22:35 Patient left the ED. ll3 Signatures: Pedro Pablo Luna MD MD cha Gatti, MyKena mw2 Rafi Vincent DO DO ms3 Félix Weldon RN RN ll3 Julisa Sr RN RN ko1 Corrections: (The following items were deleted from the chart) 21:42 21:23 BP 111 / 76; Pulse 92bpm; Resp 18bpm; Pulse Ox 100% RA; Pain 7/10; ll3 ll3
--- NOTE | 2022-07-28 20:00 | EDPHYS ---
Physician Documentation [facility] Name: Manuel Garrido Age: 52 yrs Sex: Male : 1970 Arrival Date: 07/28/2022 Time: 15:38 Bed 15 Private MD: ED Physician Pedro Pablo Luna HPI: 07/28 17:24 This 52 yrs old Male presents to ER via EMS with complaints of Chest pain, ms3 generalized weakness. 17:25 52-year-old male with past medical history of liver cirrhosis presents via [facility] ms3 after being discharged from [facility] this morning. Patient was to go to [facility] and when arriving there at 9 AM was told he could not be accepted. Patient states he began walking around and developed chest pain and generalized weakness. Patient states his chest pain began at 10 AM. Patient denies alleviating or inciting factors. Patient states he is experiencing moderate pain. Historical: - Allergies: 15:46 No Known Allergies; ko1 - Immunization history:: Adult Immunizations unknown. - Social history:: Smoking status: Patient denies any tobacco usage or history of. ROS: 17:25 Neck: Negative for injury, pain, and swelling, Cardiovascular: Negative for chest pain, ms3 and palpitations. Respiratory: Negative for shortness of breath, cough, wheezing, and pleuritic chest pain, Abdomen/GI: Negative for abdominal pain, nausea, vomiting, diarrhea, and constipation, MS/Extremity: Negative for injury and deformity. 17:25 Constitutional: Positive for Generalized weakness. 17:25 Skin: Positive for jaundice. 17:25 All other systems are negative. Exam: 17:25 Constitutional: This is a well developed, well nourished patient who is awake, alert, ms3 and in no acute distress. Head/Face: Normocephalic, atraumatic. 17:25 Chest/axilla: Normal chest wall appearance and motion. Nontender with no deformity. Cardiovascular: Regular rate and rhythm with a normal S1 and S2. No gallops, murmurs, or rubs. Normal PMI, no JVD. No pulse deficits. Respiratory: Lungs have equal breath sounds bilaterally, clear to auscultation and percussion. No rales, rhonchi or wheezes noted. No increased work of breathing, no retractions or nasal flaring. Abdomen/GI: Soft, non-tender, with normal bowel sounds. No distension or tympany. No guarding or rebound. No evidence of tenderness throughout. MS/ Extremity: Pulses equal, no cyanosis. Neurovascular intact. Full, normal range of motion. 17:25 Eyes: Sclera: icterus, is present. 17:25 Skin: Appearance: Color: jaundiced. 20:03 ECG was reviewed by the Attending Physician. beni Vital Signs: 15:41 BP 120 / 76; Pulse 88; Resp 18; Temp 98.1; Pulse Ox 100% ; Weight 83.91 kg; Height 5 ko1 ft. 3 in. (160.02 cm); Pain 0/10; 16:00 BP 108 / 70; Pulse 80; Resp 18; Pulse Ox 98% ; ko1 18:45 BP 131 / 85; Pulse 72; Resp 16; Pulse Ox 98% ; ko1 21:38 BP 138 / 84; Pulse 69; Resp 20; Pulse Ox 100% on R/A; ll3 15:41 Body Mass Index 32.77 (83.91 kg, 160.02 cm) ko1 MDM: 16:02 Patient medically screened. ms3 17:25 Differential diagnosis: abnormal EKG, acute myocardial infarction, coronary artery ms3 disease pneumonia. 17:27 Transition of care: After a detail discussion of the patient's case, care is ms3 transferred to Faraz Espana MD. 18:28 ED course: Signed out to me by Dr. Vincent, plan was to repeat troponin and rule out as rn recently admitted and just discharged. . 19:59 HEART Score: History: Slightly Suspicious (0), ECG: Non specific repolarization beni disturbance / LBTB / PM (1), Age: > 45 and < 65 years (1), Risk Factors: > or = 3 Risk factors for atherosclerotic disease (2), [Hypertension] [Obesity] Troponin: < or = 1 x Normal Limit (0). Data reviewed: vital signs, nurses notes, lab test result(s), CBC, electrolytes, urinalysis, EKG, radiologic studies. Consideration of Admission/Observation Patient was admitted/placed on observation. I considered the following discharge prescriptions or medication management in the emergency department Medications were administered in the Emergency Department. See MAR. Test considered but Not performed: CT: ct abd pelvis. Care significantly affected by the following chronic conditions: Hypertension, Obesity, Liver Disease. 07/28 16:06 Order name: Basic Metabolic Panel ms3 07/28 16:06 Order name: CBC with Diff ms3 07/28 16:06 Order name: Troponin HS ms3 07/28 17:58 Order name: CBC with Automated Diff; Complete Time: 18:56 EDMS 07/28 18:11 Order name: Basic Metabolic Panel; Complete Time: 18:28 EDMS 07/28 18:11 Order name: Troponin High Sensitivity; Complete Time: 18:28 EDMS 07/28 18:47 Order name: Manual Differential; Complete Time: 18:56 EDMS 07/28 18:56 Order name: Troponin High Sensitivity: send repeat at 2000 rn 07/28 19:45 Order name: AMMONIA 3 07/28 19:45 Order name: PT-INR 3 07/28 19:54 Order name: LFT's [facility] 07/28 19:54 Order name: Lipase [facility] 07/28 20:24 Order name: SARS RAPID [facility] 07/28 20:27 Order name: Protime (+INR); Complete Time: 20:28 EDMS 07/28 16:06 Order name: XRAY Chest (1 view) ms3 07/28 16:06 Order name: EKG; Complete Time: 16:07 ms3 07/28 16:06 Order name: Cardiac monitoring; Complete Time: 17:21 ms3 07/28 16:06 Order name: EKG - Nurse/Tech; Complete Time: 17:21 ms3 07/28 16:06 Order name: IV Saline Lock; Complete Time: 17:21 ms3 07/28 16:06 Order name: Labs collected and sent; Complete Time: 17:21 ms3 07/28 17:08 Order name: RAD; Complete Time: 17:27 EDMS 07/28 20:28 Order name: Ammonia; Complete Time: 20:43 EDMS 07/28 20:38 Order name: Troponin High Sensitivity; Complete Time: 20:43 EDMS 07/28 20:39 Order name: Liver (Hepatic) Function; Complete Time: 20:43 EDMS 07/28 20:39 Order name: Lipase; Complete Time: 20:43 EDMS 07/28 20:45 Order name: Blood Culture Adult (2) [facility] 07/28 21:06 Order name: SARS-COV-2 Antigen Rapid; Complete Time: 21:09 EDMS 07/28 16:06 Order name: O2 Per Protocol; Complete Time: 17:21 ms3 07/28 16:06 Order name: O2 Sat Monitoring; Complete Time: 17:21 ms3 EC:03 Rate is 79 beats/min. Rhythm is regular. QRS [place] is Normal. MA interval is normal. QRS beni interval is normal. QT interval is normal. No Q waves. T waves are Normal. No ST changes noted. Clinical impression: NSR w/ Non-specific ST/T Changes and No evidence of ischemia. Interpreted by me. Reviewed by me. Administered Medications: 20:40 Drug: ProTONIX (pantoprazole) 40 mg Route: IVP; Site: left antecubital; ll3 21:49 Follow up: Response: No adverse reaction ll3 20:40 Drug: Potassium Effervescent Tablet 25 mEq Route: PO; ll3 21:49 Follow up: Response: No adverse reaction 3 21:43 Drug: Rocephin (cefTRIAXone) 1 grams Route: IV; Rate: per protocol; Site: left ll3 antecubital; Disposition Summary: 07/28/22 19:58 Transfer Ordered Transfer Location: [facility] beni Reason: Higher level of care beni Condition: Stable beni Problem: chronic beni Symptoms: have worsened beni Accepting Physician: to [facility](07/28/22 22:35) ll3 Diagnosis - Chest pain, unspecified beni - Dyspnea beni - Liver transplant status - liver failure, fibrosis beni - Unspecified kidney failure - insufficency beni - Hypokalemia beni - Anemia, unspecified beni - Abdominal pain, Generalized - mild beni - Bandemia beni Forms: - Medication Reconciliation Form beni - SBAR form beni Signatures: Dispatcher [employer] EDPedro Pablo Sellers MD MD cha Nieto, Roman, MD MD rn Sims, Marcus, DO DO ms3 Félix Weldon RN RN ll3 Julisa Sr RN RN ko1 Corrections: (The following items were deleted from the chart) 20:18 19:58 to [facility] beni beni 20:28 20:18 to [facility] beni beni 20:46 20:28 to [facility] beni beni 22:35 20:46 to [facility] beni ll3
[2022-07-28 20:27] LABS: Protime INR 0.96
[2022-07-28] MEDS ORDERED: PANTOPRAZOLE 40 MG INJ ONE (20:35)
[2022-07-28] MEDS ORDERED: POTASSIUM 25 MEQ EFFERV TAB ONE (20:35)
[2022-07-28 20:37] LABS: Albumin 3.7 g/dL (3.4-5.0); Bilirubin Direct 19.5 mg/dL (0-0.2); Protein, Total 6.3 g/dL (6.4-8.2)
[2022-07-28 20:39] LABS: Bilirubin Total 22.1 mg/dL (0.2-1.0)
[2022-07-28 21:06] LABS: SARS-CoV-2 Antigen Rapid Res Negative (Negative)
[2022-07-28] MEDS ORDERED: CEFTRIAXONE 1000 MG/VIAL ONE (21:39)
[2022-07-28 22:54] VITALS: TEMP 98.1
[2022-07-28 23:06] VITALS: BP 138/84; O2SAT 100
--- NOTE | 2022-07-29 12:59 | EKG ---
Test Date: 2022-07-28 Test Time: 19:53:03 Herb Counselor: LL MEASUREMENT RESULTS: Intervals: Rate: 79 NM: 154 QRSD: 100 QT: 382 QTc: 438 [place]: P: 49 NM: 154 QRS: -39 T: 49 INTERPRETIVE STATEMENTS: Normal sinus rhythm Left axis deviation Cannot rule out Anterior infarct, age undetermined Abnormal ECG No previous ECG available for comparison Electronically Signed On 07-29-22 12:58:07 JAVASCRIPT WEB DEVELOPER by Dorian Barksdale
== END 2022-07-28 22:35 | disposition short-term general hospital (02) ==
LOC: ER 15:23
DX: R07.9 Chest pain, unspecified (principal); R06.00 Dyspnea, unspecified; E87.6 Hypokalemia; Z94.4 Liver transplant status; N19 Unspecified kidney failure; D64.9 Anemia, unspecified; D72.825 Bandemia; R10.84 Generalized abdominal pain
CPT/HCPCS: 36415; 71045; 80048; 80076; 82140; 83690; 84484; 85025; 85610; 87040; 87811; 93005; C9113